=== PATIENT | female | born 1935 | race Caucasian/White ===

== ENCOUNTER 2018-04-10 15:18 | Inpatient (IN) ==
[2018-04-10] MEDS ORDERED: Sennosides 8.6 MG TABLET PO PRN (16:12)
[2018-04-10] MEDS ORDERED: Temazepam 15 MG CAPSULE PO PRN (16:12)
[2018-04-10] MEDS ORDERED: Naloxone 0.4 MG/ML INJ IVP PRN (16:12)
[2018-04-10] MEDS ORDERED: Ondansetron 4 MG/2 ML VIAL IVP PRN (16:12)
[2018-04-10] MEDS ORDERED: MOM Conc 10 ML UD.LIQ PO PRN (16:12)
[2018-04-10] MEDS ORDERED: Acetaminophen 325 MG TABLET PO PRN (16:12)
[2018-04-10] MEDS ORDERED: Ringers Solution, Lactated 1,000 ML IVC SCH (16:15)
[2018-04-10] MEDS ORDERED: *HR* OxyCODONE/APAP 5/325 TABLET PO PRN (16:29)
--- NOTE | 2018-04-10 16:47 | Orthopedic History & Physical ---
Date of Encounter: 04/10/18 Time of Encounter: 16:40 Assessment and Plan (1) Loosening of knee joint prosthesis Current visit: Yes Status: Acute Patient is POD#9 from Left TKR, after sustaining a tibial plateau fracture. XRAYS were reviewed from office visit, showing further subsision of tibial implant with evidence of tibial implan loosening. Both converative and surgical options were reviewed and discussed with the patient. At this time, to prevent further loosening and instability, decision was made to proceed with Surgical intervention. also spoke and saw the patient. Plan: Left Tibial Revision 04/11/18 with - Consent reviewed and signed. Risks versus benefits were discussed. Patient expressed understanding. NPO After midnight. Up as tolerated. Patient was noted to be hypoxic in office with improvement once 2 L of O2 was initiated. Hospitalist consulted for pre-op workup. Qualifiers: Encounter type: initial encounter Qualified Code(s): T84.038A - Mechanical loosening of other internal prosthetic joint, initial encounter; Z96.659 - Presence of unspecified artificial knee joint (2) Status post total knee replacement, left Current visit: No Status: Acute (3) Tibial plateau fracture, left Current visit: No Status: Acute Qualifiers: Encounter type: initial encounter Fracture type: closed Qualified Code(s) : S82.142A - Displaced bicondylar fracture of left tibia, initial encounter for closed fracture (4) COPD (chronic obstructive pulmonary disease) Current visit: No Status: Chronic Qualifiers: COPD type: unspecified COPD Qualified Code(s): J44.9 - Chronic obstructive pulmonary disease, unspecified (5) Chronic kidney disease Current visit: No Status: Chronic Qualifiers: Chronic kidney disease stage: stage 3 (moderate) Qualified Code(s): N18.3 - Chronic kidney disease, stage 3 (moderate) (6) Hypertension Current visit: No Status: Chronic Qualifiers: Hypertension type: essential hypertension Qualified Code(s): I10 - Essential (primary) hypertension (7) Hypothyroidism Current visit: No Status: Chronic Qualifiers: Hypothyroidism type: unspecified Qualified Code(s): E03.9 - Hypothyroidism , unspecified History of Present Illness Chief complaint: Left Knee - Loosening of Tibial Implant HPI: Ms. Calero is a 82 year old female, s/p Left TKR 04/01 due to Tibial Plateau fracture. She was recently Discharged from the hospital to [facility] last week. Patient was seen in the office today for follow up. She denies any falls or trauma. She admits to continued pain to left knee. Ambulating with significant difficulty with walker at facility - [facility]. Incision was clean, intact and healing appropriately. Incision cleansed. Wound - paul in place, No drainage or dehiscence noted. Moderate swelling noted. +CALF tenderness. Mild irritation along medial aspect of incision. Zipline dressing intact and New opsite applied. Remove dressing in 5-7 days I reviewed the XRAYS with the patient - hardware intact and comparison views reviewed with patient and . Tibial component shows evidence of shifting with subsision anteriorly. Post-operative restrictions and operative report were outlined. Continue to ICE and elevate daily ROM limited. WBAT. Gentle knee ROM only Past Med Surg Social Fam HX - Past Medical History Medical history: arthritis, COPD, GERD, hyperlipidemia, hypertension, TIA Additional medical history: colon CA, neuropathy, Psychiatric history: anxiety, depression, panic disorder - Past Surgical History Surgical History: appendectomy, , cancer surgery, cholecystectomy, colectomy, hysterectomy, other Additional surgical history: port placement- removed. - Social History Smoking Status: Never smoker Smokeless Tobacco Status: No Alcohol use: none Drug use: none - Family History Mother Adopted: No Living Status: Hx Family Cancer: Yes (breast cancer) Medications and Allergies Clopidogrel [Plavix] 75 mg PO DAILY 09/08/15 [History] Colesevelam HCl [Welchol] 1,875 mg PO BID 09/08/15 [History] Duloxetine HCl [Cymbalta] 60 mg PO DAILY 09/08/15 [History] amLODIPine [Norvasc] 5 mg PO DAILY 09/08/15 [History] Docusate [Colace] 100 mg PO BID #60 capsule 09/10/15 [Rx] Fenofibrate Nanocrystallized [Tricor] 48 mg PO DAILY 08/26/16 [History] Ergocalciferol (VITAMIN D2) [Vitamin D2 (50,000 UNIT)] 50,000 unit PO WE [History] Lansoprazole [Prevacid] 30 mg PO DAILY 03/01/17 [History] Albuterol Sulfate [Ventolin Hfa] 2 puff IH Q4-6H PRN #1 hfa.aer.ad 08/06/17 [Rx] Amitriptyline [Elavil] 50 mg PO HS 03/29/18 [History] Fluticasone/Salmeterol [Advair 250-50 Diskus] 1 puff IH BID 03/29/18 [History] Levothyroxine [Synthroid] 100 mcg PO DAILY 03/29/18 [History] Pantoprazole Sodium [Protonix] 40 mg PO DAILY 03/29/18 [History] Aspirin Enteric Coated [Aspirin EC] 325 mg PO BID 10 Days tablet. 04/05/18 [ Rx] OxyCODONE/APAP 5/325 [Percocet 5/325 MG] 1 each PO Q8H PRN 3 Days #5 tablet [Rx] Pregabalin [Lyrica] 200 mg PO BID 3 Days #10 capsule 04/05/18 [Rx] 3 Allergy/AdvReac Type Severity Reaction Status Date / Time Diclofenac [From Arthrotec] Allergy See Verified 03/29/18 13:59 Comments misoprostol [From Arthrotec] Allergy See Verified 03/29/18 13:59 Comments Dlxfapg-Fmi-Unr Reductase Allergy See Verified 03/29/18 13:59 Inhibitor Comments morphine AdvReac Agitated Verified 03/29/18 13:59 All Systems Reviewed: The remainder of the systems were reviewed and are negative - Constitutional Constitutional: as per HPI, no weakness - Cardiovascular Cardiovascular: as per HPI, no chest pain, no dyspnea on exertion, no syncope - Respiratory Respiratory: no dyspnea, no dyspnea on exertion - Musculoskeletal Musculoskeletal: abnormal gait, back pain, joint swelling, limited range of motion, muscle weakness, stiffness, no numbness, no radiating pain into limb Physical Exam - Constitutional Vitals: Temp Pulse Resp BP Pulse Ox 97.6 F 84 16 133/74 95 04/10/18 15:43 04/10/18 15:43 04/10/18 15:43 04/10/18 15:43 04/10/18 15:43 - Knee left Appearance: effusion Tenderness with palpation knee: anterior, medial Pain: with flexion, throughout ROM Gait: uses walker Results - Labs Labs: All other labs normal. - Diagnostic results Knee x-ray: report reviewed, image reviewed
[2018-04-10 17:20] LABS: Basophils # 0.1 K/mcL (0.0-0.2); Basophils % 0.7 %; Eosinophils # 0.3 K/mcL (0.0-0.6); Hematocrit 29.5 % (35.3-44.9); Hemoglobin 9.1 g/dL (11.5-15.4); Immature Granulocytes % 0.7 % (0-4); Lymphocytes # 1.2 K/mcL (0.6-4.6); Mean Corpuscular HGB Conc 30.8 g/dL (31.6-35.5); Mean Corpuscular Hemoglobin 28.6 pg (28.0-33.3); Mean Corpuscular Volume 92.8 fL (83.0-100.0); Mean Platelet Volume 9.8 fL (9.4-12.4); Monocytes # 0.6 K/mcL (0.0-1.3); Neutrophils # 5.1 K/mcL (1.6-8.9); Platelet Count 386 K/mcL (140-400); Red Blood Count 3.18 M/mcL (3.82-4.97); Red Cell Distribution Width 15.5 % (11.5-14.5); Segmented Neutrophils % 70.6 %
[2018-04-10 17:34] LABS: INR 1.1; Prothrombin Time 12.8 Seconds (9.4-12.1)
[2018-04-10 17:36] LABS: Activated Partial Thrombo Time 34.8 Seconds (26.0-36.0)
[2018-04-10 17:42] LABS: Calcium 8.8 mg/dL (8.6-10.3); Potassium 4.5 mEq/L (3.5-5.1)
--- NOTE | 2018-04-10 19:25 | Anesthesia Evaluation PreOp ---
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: TIA, Other (Anxiety depression RLS) Other Medical History: Thyroid, GERD Anesthesia History: No Prior Anesthetic Complications, Past Anesthesia (TKA under GA and Nerve Block) Alcohol Use: none Drug use: none Medications and Allergies Clopidogrel [Plavix] 75 mg PO DAILY 09/08/15 [History] Colesevelam HCl [Welchol] 1,875 mg PO BID 09/08/15 [History] Duloxetine HCl [Cymbalta] 60 mg PO DAILY 09/08/15 [History] amLODIPine [Norvasc] 5 mg PO DAILY 09/08/15 [History] Docusate [Colace] 100 mg PO BID #60 capsule 09/10/15 [Rx] Fenofibrate Nanocrystallized [Tricor] 48 mg PO DAILY 08/26/16 [History] Ergocalciferol (VITAMIN D2) [Vitamin D2 (50,000 UNIT)] 50,000 unit PO WE [History] Lansoprazole [Prevacid] 30 mg PO DAILY 03/01/17 [History] Albuterol Sulfate [Ventolin Hfa] 2 puff IH Q4-6H PRN #1 hfa.aer.ad 08/06/17 [Rx] Amitriptyline [Elavil] 50 mg PO HS 03/29/18 [History] Fluticasone/Salmeterol [Advair 250-50 Diskus] 1 puff IH BID 03/29/18 [History] Levothyroxine [Synthroid] 100 mcg PO DAILY 03/29/18 [History] Pantoprazole Sodium [Protonix] 40 mg PO DAILY 03/29/18 [History] Aspirin Enteric Coated [Aspirin EC] 325 mg PO BID 10 Days tablet. 04/05/18 [ Rx] OxyCODONE/APAP 5/325 [Percocet 5/325 MG] 1 each PO Q8H PRN 3 Days #5 tablet [Rx] Pregabalin [Lyrica] 200 mg PO BID 3 Days #10 capsule 04/05/18 [Rx] 3 Allergy/AdvReac Type Severity Reaction Status Date / Time Diclofenac [From Arthrotec] Allergy See Verified 03/29/18 13:59 Comments misoprostol [From Arthrotec] Allergy See Verified 03/29/18 13:59 Comments Rjxnvsj-Dwm-Zex Reductase Allergy See Verified 03/29/18 13:59 Inhibitor Comments morphine AdvReac Agitated Verified 03/29/18 13:59 - Meds/Allergy Pre-op Review Medications Reviewed: Yes Allergies Reviewed: Yes Beta Blockers on Current Med List: No Anesthesia Results - Labs 04/10/18 17:06 04/10/18 17:06 Laboratory Tests 04/10/18 04/10/18 04/10/18 17:06 17:06 17:06 Hgb 9.1 L Hct 29.5 L Plt Count 386 PT 12.8 H INR 1.1 APTT 34.8 Sodium 140 Potassium 4.5 BUN 39 H Creatinine 1.42 H - Imaging EKG: pending Anesthesia Exam O2 Sat Height 1.6 m Weight 101.151 kg O2 Sat by Pulse Oximetry 95 O2 Sat by Pulse Oximetry 95 Vital Signs Temp Pulse Resp BP Pulse Ox 97.6 F 84 16 133/74 95 04/10/18 15:43 04/10/18 15:43 04/10/18 15:43 04/10/18 15:43 04/10/18 15:43 Height: 5'3 Weight: 223 lbs NPO (# of Hours): MN Pain Scale: 0 - HEENT Pupil (Motor): Pupils equal, EOMI Mallampati: III Teeth: Edentulous Oral Opening: Less than or equal to 3 - OLEOMARGARINE MAKER LOC: Oriented OLEOMARGARINE MAKER Motor: Normal RUE, Normal LUE, Normal RLE, Normal LLE, Normal Face OLEOMARGARINE MAKER Sensory: Normal: RUE, LUE, RLE, LLE, Face - Cardiac Rhythm: Regular Murmur: None JVD: No Carotid Bruit: No - Pulmonary Breath Sounds: bilateral Clear Respiratory Effort: Symmetrical Anesthesia Assess/Plan ASA Score: 3 (HTN TIA GERD COPD) Modified Donaldo Scale for Level of Consciousness: Cooperative, oriented, and tranquil Anesthetic Plan: General, Regional Monitoring Plan: Standard Monitors Recovery Plan: PACU (Discussed GA and Adductor/IPACK Block, agrees to proceed)
--- NOTE | 2018-04-10 20:57 | Internal Medicine Consult Note ---
Date of Encounter: 04/11/18 Time of Encounter: 20:50 - Assessment and plan (1) COPD exacerbation Current Visit: Yes Status: Acute Assessment and plan: pt has SOB, wheezing and cough productive of phlegm. She was saturating 92% on room air and 95% on 2L. Will start on round the clock nebs, steroids and antibiotics. This is the likely etiology for her mild hypoxia. Follow up chest xray to r/o pneumonia in light of recent hospital stay. (2) Preoperative clearance Current Visit: Yes Status: Acute Assessment and plan: Pt has good functional status at baseline and is able to do activities such as walking around the house and cooking with a METS score of approximately 4. Patient may proceed for orthopedic surgery at low risk. No further cardiac testing indicated (3) Loosening of knee joint prosthesis Current Visit: Yes Status: Acute Assessment and plan: Follow up ortho recs for planned revision in am Qualifiers: Encounter type: initial encounter Qualified Code(s): T84.038A - Mechanical loosening of other internal prosthetic joint, initial encounter; Z96.659 - Presence of unspecified artificial knee joint (4) Hypoxia Current Visit: Yes Status: Acute Assessment and plan: Likely 2/2 to COPD exacerbation vs query other etiology such as fluid overload. CXR shows possible interstitial edema. Hold IV fluids, follow up BNP levels - Time Spent With Patient Total time spent is greater than 50% in coordination of care (as documented) at patient's floor/unit and/or counseling patient: Internal Medicine - CN: HPI - Data of Consult Requesting Physician: Roman Raymond MD - Consult Narrative Reason for consult: Hypoxia, preop clearance History of present illness: Ms. Calero is a 82 year old female with pmh of COPD, hypertension, hypothyroidism, s/p left total knee replacement 9 days ago due to tibial plateau fracture presenting with complaint of left knee pain at the ortho outpatient office. She was admitted to the hospital for a scheduled left tibial revision on 04/11/18 after xrays showed evidence of shifting with subsission anteriorly. She was also noted to be hypoxic at 92 % on room air and hospitalist service was consulted for preop clearance. She complains of shortness of breath for about days, coughing productive of phlegm and wheezing. She uses inhalers at home. She also complains of continued left knee pain Past Med Surg Social Fam HX - Past Medical History Medical history: arthritis, COPD, GERD, hyperlipidemia, hypertension, TIA Additional medical history: colon CA, neuropathy, Psychiatric history: anxiety, depression, panic disorder - Past Surgical History Surgical History: appendectomy, , cancer surgery, cholecystectomy, colectomy, hysterectomy, other Additional surgical history: port placement- removed. - Social History Smoking Status: Never smoker Smokeless Tobacco Status: No Alcohol use: none Drug use: none - Family History Mother Adopted: No Living Status: Age at : 48 Hx Family Cancer: Yes (breast cancer) - Constitutional Constitutional: as per HPI - Cardiovascular Cardiovascular ROS IM: dyspnea - Respiratory Respiratory: wheezing - Gastrointestinal Gastrointestinal: as per HPI - Musculoskeletal Musculoskeletal ROS IM: as per HPI Additional comments: knee pain - Neurological Neurological ROS: as per HPI Internal Medicine - CN: Meds Clopidogrel [Plavix] 75 mg PO DAILY 09/08/15 [History] Colesevelam HCl [Welchol] 1,875 mg PO BID 09/08/15 [History] Duloxetine HCl [Cymbalta] 60 mg PO DAILY 09/08/15 [History] amLODIPine [Norvasc] 5 mg PO DAILY 09/08/15 [History] Docusate [Colace] 100 mg PO BID #60 capsule 09/10/15 [Rx] Fenofibrate Nanocrystallized [Tricor] 48 mg PO DAILY 08/26/16 [History] Ergocalciferol (VITAMIN D2) [Vitamin D2 (50,000 UNIT)] 50,000 unit PO WE [History] Lansoprazole [Prevacid] 30 mg PO DAILY 03/01/17 [History] Albuterol Sulfate [Ventolin Hfa] 2 puff IH Q4-6H PRN #1 hfa.aer.ad 08/06/17 [Rx] Amitriptyline [Elavil] 50 mg PO HS 03/29/18 [History] Fluticasone/Salmeterol [Advair 250-50 Diskus] 1 puff IH BID 03/29/18 [History] Levothyroxine [Synthroid] 100 mcg PO DAILY 03/29/18 [History] Pantoprazole Sodium [Protonix] 40 mg PO DAILY 03/29/18 [History] Aspirin Enteric Coated [Aspirin EC] 325 mg PO BID 10 Days tablet. 04/05/18 [ Rx] OxyCODONE/APAP 5/325 [Percocet 5/325 MG] 1 each PO Q8H PRN 3 Days #5 tablet [Rx] Pregabalin [Lyrica] 200 mg PO BID 3 Days #10 capsule 04/05/18 [Rx] 3 Allergy/AdvReac Type Severity Reaction Status Date / Time Diclofenac [From Arthrotec] Allergy See Verified 03/29/18 13:59 Comments misoprostol [From Arthrotec] Allergy See Verified 03/29/18 13:59 Comments Dykshkw-Uyr-Cnk Reductase Allergy See Verified 03/29/18 13:59 Inhibitor Comments morphine AdvReac Agitated Verified 03/29/18 13:59 Internal Medicine - CN: Exam - Constitutional Vitals: Temp Pulse Resp BP Pulse Ox 98.0 F 81 17 136/74 92 04/10/18 19:40 04/10/18 19:40 04/10/18 19:40 04/10/18 19:40 04/10/18 19:40 General appearance IM: Present: A&O X 3 - Head Head exam: Present: atraumatic - Respiratory Respiratory exam: Present: wheezes - Cardiovascular Cardiovascular exam IM: Present: +S1, +S2 - GI/Abdominal GI/Abdominal exam IM: Present: soft - Extremities Exam Extremities exam IM: Present: tenderness - Neurological Exam Neurological exam: Present: alert, CN II-XII intact Internal Medicine - CN: Reslt - Labs CBC & Chem 7: 04/10/18 17:06 04/10/18 17:06 Labs: Short CBC 04/10/18 Range/Units 17:06 WBC 7.3 (4.3-11.1) K/mcL Hgb 9.1 L (11.5-15.4) g/dL Hct 29.5 L (35.3-44.9) % Plt Count 386 (140-400) K/mcL Neutrophils # 5.1 (1.6-8.9) K/mcL BMP 04/10/18 17:06 Sodium 140 Potassium 4.5 Chloride 110 H Carbon Dioxide 24 BUN 39 H Creatinine 1.42 H Glucose 106 H Calcium 8.8 - ABG Interpretation ABG results: PT/INR, D-dimer PT 12.8 Seconds (9.4-12.1) H 04/10/18 17:06 Consult Discharge Plan - Plan Referrals: Stiltner,Arpan D, [Primary Care Provider] -
[2018-04-10] MEDS ORDERED: Levofloxacin 750 MG/150 ML 750 MG/150 ML BAG IVPB SCH (22:00)
[2018-04-10] MEDS: Ipratropium/Albuterol Neb 3 ML IH SCH ×2 (22:36→22:49)
[2018-04-10] MEDS: Budesonide/Formoterol 160/4.5 MDI IH SCH (22:48)
[2018-04-11] MEDS: methylPREDNISolone 125 MG/2 ML VIAL IVP SCH ×3 (00:25→08:14)
[2018-04-11 01:16] LABS: Hematocrit 28.6 % (35.3-44.9)
[2018-04-11 01:35] LABS: Calcium 8.6 mg/dL (8.6-10.3); Potassium 3.8 mEq/L (3.5-5.1)
[2018-04-11] MEDS: Ipratropium/Albuterol Neb 3 ML IH SCH ×5 (03:52→19:41)
--- NOTE | 2018-04-11 06:44 | Orthopedics Progress Note ---
Date of Encounter: 04/11/18 Time of Encounter: 06:42 Subjective Interval history: Patient here following left total knee replacement. Patient presented in the office with subsidence of the tibial component. Patient is also experiencing some hypoxemia patient was referred for admission for medical evaluation and surgical revision. We reviewed the surgical plan revision tibial component. We reviewed the risks and benefits as well as recovery. All questions were answered. The patient agreed to this treatment plan and appeared to understand the plan is reviewed. Objective Vital signs: Vital Signs Temp Pulse Resp BP Pulse Ox 04/11/18 04:29 98.3 F 81 16 159/74 92 04/11/18 03:52 16 93 04/10/18 23:29 98.1 F 81 17 146/60 93 04/10/18 22:48 16 93 04/10/18 19:40 98.0 F 81 17 136/74 92 04/10/18 15:45 95 04/10/18 15:43 97.6 F 84 16 133/74 95 Intake and Output 04/10/18 04/10/18 04/11/18 15:59 23:59 07:59 Output Total 250 / 250 Balance -250 / -250 Output: Urine 250 / 250 Other: # Voids 1 1 Weight 101.151 kg 102.3 kg Patient Weight 04/11/18 23:59 Weight 102.3 kg - Labs CBC & BMP: 04/11/18 00:49 04/11/18 00:49 Labs: Abnormal lab results RBC 3.18 M/mcL (3.82-4.97) L 04/10/18 17:06 Hgb 9.0 g/dL (11.5-15.4) L 04/11/18 00:49 Hct 28.6 % (35.3-44.9) L 04/11/18 00:49 MCHC 30.8 g/dL (31.6-35.5) L 04/10/18 17:06 RDW 15.5 % (11.5-14.5) H 04/10/18 17:06 PT 12.8 Seconds (9.4-12.1) H 04/10/18 17:06 Chloride 109 mEq/L (98-107) H 04/11/18 00:49 BUN 35 mg/dL (8-23) H 04/11/18 00:49 Est GFR ( Amer) 57 (> 60) L 04/11/18 00:49 Est GFR (Non-Af Amer) 47 (> 60) L 04/11/18 00:49 BUN/Creatinine Ratio 31 (6-26) H 04/11/18 00:49 Glucose 186 mg/dL (70-105) H 04/11/18 00:49 Calculated Osmolality 301 (280-300) H 04/11/18 00:49 B-Natriuretic Peptide 191 pg/mL (Less than 100) H 04/11/18 00:49 - VTE Documentation of Mechanical Device: Intermittent pneumatic compression device Consult Discharge Plan - Plan Referrals: Arpan Larkin DO [Primary Care Provider] -
[2018-04-11] MEDS ORDERED: Furosemide 20 MG/2 ML VIAL IVP ONE (09:02)
[2018-04-11] MEDS ORDERED: Bupivacaine/Clonidine Syringe 1 EACH SYRINGE ONE (10:00)
[2018-04-11] MEDS ORDERED: ROPIVACAINE HCL/PF 0.5% 30 ML VIAL ONE (10:00)
[2018-04-11] MEDS ORDERED: Lidocaine -MPF 2% 2 ML VIAL ONE (10:06)
[2018-04-11] MEDS ORDERED: *HR* Propofol 200 MG/20 ML VIAL IVP ONE (10:06)
[2018-04-11] MEDS ORDERED: *HR* Midazolam HCl 2 MG/2 ML VIAL ONE (10:06)
[2018-04-11] MEDS ORDERED: Dexamethasone 4 MG/ML VIAL ONE (10:06)
[2018-04-11] MEDS ORDERED: Ondansetron 4 MG/2 ML VIAL ONE (10:06)
[2018-04-11] MEDS ORDERED: *HR* FentaNYL (PF) 100 MCG/2 ML VIAL ONE (10:07)
[2018-04-11] MEDS ORDERED: Ethanol\\Acetic Acid\\Na Ace\\Ben 1,000 ML IRRIG.SOLN IR ONE (10:09)
--- NOTE | 2018-04-11 10:46 | Internal Med Progress Note ---
Hospitalist Progress Note - Encounter Date of Encounter: 04/11/18 Time of Encounter: 10:43 - Subjective Interval History: Patient denies shortness of breath chest pain headache dizziness cough abdominal pain urinary bowel complaint. She is on 2 L oxygen that she was taking at home as well. Reviewed the lab with normal creatinine level, stable hemoglobin, BNP 191. - Exam Vitals: Temp Pulse Resp BP Pulse Ox 98.2 F 92 18 161/79 96 04/11/18 07:52 04/11/18 07:52 04/11/18 07:52 04/11/18 07:52 04/11/18 07:52 Exam: General appearance: No acute distress, A&O X 3 Head exam: Atraumatic Eye exam: EOMI, PERRLA ENT exam: Moist oral mucosa Neck nontender, supple Respiratory exam: Clear to auscultation bilaterally Cardiovascular exam: Regular rate and rhythm, no systolic murmur Abdominal exam: Soft, nontender, nondistended, positive bowel sounds Extremities exam: No calf tenderness, no pedal edema Present: Left knee tenderness present Neurological exam: Grossly CN II-XII intact, no focal deficits. No facial droop. Normal speech. - Assessment and Plan (1) Loosening of knee joint prosthesis Current Visit: Yes Status: Acute Assessment and Plan: Plan revision today known. Primary team ortho physician is managing. Patient is nothing by mouth. (2) COPD exacerbation Current Visit: Yes Status: Acute Assessment and Plan: improving.will taper down a steroid based on further assessment. Continue current treatment, oxygen supplementation. (3) Preoperative clearance Current Visit: Yes Status: Acute Assessment and Plan: Pt has good functional status at baseline and is able to do activities such as walking around the house and cooking with a METS score of approximately 4. Chest x-ray with interstitial edema therefore use IV fluid wisely, strict I&O' s. May consider Lasix when necessary. (4) Hypoxia Current Visit: Yes Status: Acute Assessment and Plan: Improving. Likely 2/2 to COPD exacerbation vs possible fluid overload. CXR shows possible interstitial edema with minimal raised BNP. Hold IV fluids, Lasix when necessary (5) DVT prophylaxis Current Visit: Yes Status: Acute Assessment and Plan: SCDs for now. Will consider heparin subcutaneous postoperatively - Time Spent with Patient Total time spent is greater than 50% in coordination of care (as documented) at patient's floor/unit and/or counseling patient: 25 - 35 minutes Internal Medicine: Result - Labs CBC & Chem 7: 04/11/18 00:49 04/11/18 00:49 Labs: Short CBC 04/10/18 04/11/18 Range/Units 17:06 00:49 WBC 7.3 (4.3-11.1) K/mcL Hgb 9.1 L 9.0 L (11.5-15.4) g/dL Hct 29.5 L 28.6 L (35.3-44.9) % Plt Count 386 (140-400) K/mcL Neutrophils # 5.1 (1.6-8.9) K/mcL BMP 04/10/18 04/11/18 17:06 00:49 Sodium 140 139 Potassium 4.5 3.8 Chloride 110 H 109 H Carbon Dioxide 24 23 BUN 39 H 35 H Creatinine 1.42 H 1.12 Glucose 106 H 186 H Calcium 8.8 8.6 - ABG Interpretation ABG results: PT/INR, D-dimer PT 12.8 Seconds (9.4-12.1) H 04/10/18 17:06 - Impressions Impressions Chest X-Ray 04/10/18 16:10 IMPRESSION: Prominence of the interstitial markings. Correlation for interstitial edema is recommended. D/ / Leslie Heredia Cha, MD / Leslie Heredia Cha, MD Interpreting Provider: Leslie Heredia Cha, MD - VTE Documentation of Mechanical Device: Intermittent pneumatic compression device Consult Discharge Plan - Plan Referrals: Arpan Larkin, DO [Primary Care Provider] - (1) Loosening of knee joint prosthesis Qualifiers: Encounter type: initial encounter Qualified Code(s): T84.038A - Mechanical loosening of other internal prosthetic joint, initial encounter; Z96.659 - Presence of unspecified artificial knee joint
[2018-04-11] MEDS ORDERED: Isovue-370 500 ML INFUS..BTL IV ONE (10:55)
[2018-04-11] MEDS: Budesonide/Formoterol 160/4.5 MDI IH SCH ×2 (11:17→19:41)
--- NOTE | 2018-04-11 11:55 | Orthopedics Progress Note ---
Date of Encounter: 04/11/18 Time of Encounter: 11:53 Subjective Interval history: Patient with new baseline hypoxemia. Concern for PE, stat CT angiogram showed no evidence of PE. Patient with an acute change in implant position concern for further worsening of extremity with inability to bear weight and mobilized putting her at increased risk for pulmonary issues. Surgical intervention is urgent to rectify this problem mobilize patient and hopefully correct pulmonary issues. Objective Vital signs: Vital Signs Temp Pulse Resp BP Pulse Ox 04/11/18 07:52 98.2 F 92 18 161/79 96 04/11/18 04:29 98.3 F 81 16 159/74 92 04/11/18 03:52 16 93 04/10/18 23:29 98.1 F 81 17 146/60 93 04/10/18 22:48 16 93 04/10/18 19:40 98.0 F 81 17 136/74 92 04/10/18 15:45 95 04/10/18 15:43 97.6 F 84 16 133/74 95 Intake and Output 04/10/18 04/11/18 04/11/18 23:59 07:59 15:59 Output Total 250 / 250 600 / 600 Balance -250 / -250 -600 / -600 Output: Urine 250 / 250 600 / 600 Other: Meal Breakfast Percent of Meal Consumed 0% # Voids 1 1 Weight 101.151 kg 102.3 kg Patient Weight 04/11/18 23:59 Weight 102.3 kg - Labs CBC & BMP: 04/11/18 00:49 04/11/18 00:49 Labs: Abnormal lab results RBC 3.18 M/mcL (3.82-4.97) L 04/10/18 17:06 Hgb 9.0 g/dL (11.5-15.4) L 04/11/18 00:49 Hct 28.6 % (35.3-44.9) L 04/11/18 00:49 MCHC 30.8 g/dL (31.6-35.5) L 04/10/18 17:06 RDW 15.5 % (11.5-14.5) H 04/10/18 17:06 PT 12.8 Seconds (9.4-12.1) H 04/10/18 17:06 Chloride 109 mEq/L (98-107) H 04/11/18 00:49 BUN 35 mg/dL (8-23) H 04/11/18 00:49 Est GFR ( Amer) 57 (> 60) L 04/11/18 00:49 Est GFR (Non-Af Amer) 47 (> 60) L 04/11/18 00:49 BUN/Creatinine Ratio 31 (6-26) H 04/11/18 00:49 Glucose 186 mg/dL (70-105) H 04/11/18 00:49 Calculated Osmolality 301 (280-300) H 04/11/18 00:49 B-Natriuretic Peptide 191 pg/mL (Less than 100) H 04/11/18 00:49 - VTE Documentation of Mechanical Device: Intermittent pneumatic compression device Consult Discharge Plan - Plan Referrals: Arpan Larkin DO [Primary Care Provider] -
--- NOTE | 2018-04-11 11:59 | Discharge Summary ---
<Roman Raymond - Last Filed: 04/11/18 11:55> Orders not resulted at time of discharge: Pending orders 04/10/18 16:10 ECG 12 lead ECG [ECG] Routine 04/11/18 06:00 ECG 12 lead ECG [ECG] AM 0600 04/11/18 09:15 Venous Doppler [EV venous imaging LE BI] Stat 04/11/18 10:56 XR knee LT limited 1-2V [XR] Routine 04/11/18 11:07 ABG [Arterial Blood Gas] Stat 04/11/18 13:30 Hemoglobin and Hematocrit [HEME] Routine 04/12/18 04:00 Basic Metabolic Panel AM 0400 Hemoglobin and Hematocrit [HEME] AM 0400 Date of Encounter: 04/11/18 - Discharge Diagnosis (1) Status post revision of total replacement of left knee Priority: Primary Status: Acute (2) Morbid obesity with BMI of 40.0-44.9, adult Priority: Secondary Status: Chronic (3) Colonic cancer Priority: Secondary Status: Chronic Qualifiers: Colon location: transverse Qualified Code(s): C18.4 - Malignant neoplasm of transverse colon (4) Tibial plateau fracture, left Priority: Primary Status: Acute Qualifiers: Encounter type: subsequent encounter Fracture type: closed Fracture healing: with routine healing Qualified Code(s): S82.142D - Displaced bicondylar fracture of left tibia, subsequent encounter for closed fracture with routine healing (5) Decreased ambulation status Priority: Primary Status: Acute (6) Hypertension Priority: Secondary Status: Chronic Qualifiers: Hypertension type: essential hypertension Qualified Code(s): I10 - Essential (primary) hypertension (7) Hypothyroidism Priority: Secondary Status: Chronic Qualifiers: Hypothyroidism type: unspecified Qualified Code(s): E03.9 - Hypothyroidism , unspecified (8) TIA (transient ischemic attack) Priority: Secondary Status: Chronic (9) Status post total knee replacement, left Priority: Primary Status: Acute (10) COPD (chronic obstructive pulmonary disease) Priority: Secondary Status: Chronic Qualifiers: COPD type: unspecified COPD Qualified Code(s): J44.9 - Chronic obstructive pulmonary disease, unspecified (11) Loosening of knee joint prosthesis Status: Acute Qualifiers: Encounter type: subsequent encounter Qualified Code(s): T84.038D - Mechanical loosening of other internal prosthetic joint, subsequent encounter; Z96.659 - Presence of unspecified artificial knee joint (12) Hypoxia Priority: Primary Status: Acute (13) Chronic pain Priority: Secondary Status: Chronic Qualifiers: Chronic pain type: other chronic pain Qualified Code(s): G89.29 - Other chronic pain - Hospital Course Hospital course: Ms. Calero is a 82 year old female - Time Spent with Patient Total time spent providing and/or coordinating discharge services: - Discharge Medications Prescriptions: levoFLOXacin [Levofloxacin] 750 mg PO Q24H #10 tablet Home Medications: Clopidogrel [Plavix] 75 mg PO DAILY 09/08/15 [History] Colesevelam HCl [Welchol] 1,875 mg PO BID 09/08/15 [History] Duloxetine HCl [Cymbalta] 60 mg PO DAILY 09/08/15 [History] Docusate [Colace] 100 mg PO BID #60 capsule 09/10/15 [Rx] Fenofibrate Nanocrystallized [Tricor] 48 mg PO DAILY 08/26/16 [History] Amitriptyline [Elavil] 50 mg PO HS 03/29/18 [History] Fluticasone/Salmeterol [Advair 250-50 Diskus] 1 puff IH BID 03/29/18 [History] Levothyroxine [Synthroid] 100 mcg PO DAILY 03/29/18 [History] Aspirin Enteric Coated [Aspirin EC] 325 mg PO BID 10 Days tablet. 04/05/18 [ Rx] Celecoxib [Celebrex] 200 mg PO DAILY 04/11/18 [History] Meloxicam [Mobic] 15 mg PO DAILY 04/11/18 [History] levoFLOXacin [Levofloxacin] 750 mg PO Q24H #10 tablet 04/11/18 [Rx] Ergocalciferol (VITAMIN D2) [Vitamin D2] 50,000 unit PO WE 04/12/18 [History] Pantoprazole Sodium [Pantoprazole Sodium] 40 mg PO DAILY 04/12/18 [History] Pregabalin [Lyrica] 200 mg PO BID 04/12/18 [History] Allergies/Adverse Reactions: 3 Allergy/AdvReac Type Severity Reaction Status Date / Time Diclofenac [From Arthrotec] Allergy See Verified 03/29/18 13:59 Comments misoprostol [From Arthrotec] Allergy See Verified 03/29/18 13:59 Comments Wdvxabw-Bgo-Kwh Reductase Allergy See Verified 03/29/18 13:59 Inhibitor Comments morphine AdvReac Agitated Verified 03/29/18 13:59 Date of admission: 04/10/18 16:07 Primary care physician: Arpan Larkin DO Consults: 04/10/18 16:12 Consult to Orthopedic Navigator [CONS] [CONS] Routine Consult to Inspector Dials [CONS] Routine Reason for SW Consult: post op joint replacement 04/10/18 16:36 Consult to Hospitalist [CONS] Routine Consulting Provider: Hospitalist Enegeericka Reason for Consult: Pre-operative clearance, O2 dependency Time Notified: 16:37 Call Completed: Yes - VTE Documentation of Mechanical Device: Intermittent pneumatic compression device Labs on day of discharge: Labs from last 24 hours 04/11/18 04/11/18 04/11/18 00:49 00:49 00:49 WBC RBC Hgb Hct MCV MCH MCHC RDW Plt Count MPV Immature Gran % Seg Neutrophils % Lymphocytes % Monocytes % Eosinophils % Basophils % Neutrophils # Lymphocytes # Monocytes # Eosinophils # Basophils # PT INR APTT Sodium 139 Potassium 3.8 Chloride 109 H Carbon Dioxide 23 BUN 35 H Creatinine 1.12 Est GFR ( Amer) 57 L Est GFR (Non-Af Amer) 47 L BUN/Creatinine Ratio 31 H Glucose 186 H Calculated Osmolality 301 H Calcium 8.6 B-Natriuretic Peptide 191 H Blood Type AB POSITIVE Antibody Screen NEGATIVE 04/11/18 04/10/18 04/10/18 00:49 17:06 17:06 WBC RBC Hgb 9.0 L Hct 28.6 L MCV MCH MCHC RDW Plt Count MPV Immature Gran % Seg Neutrophils % Lymphocytes % Monocytes % Eosinophils % Basophils % Neutrophils # Lymphocytes # Monocytes # Eosinophils # Basophils # PT 12.8 H INR 1.1 APTT 34.8 Sodium 140 Potassium 4.5 Chloride 110 H Carbon Dioxide 24 BUN 39 H Creatinine 1.42 H Est GFR ( Amer) 43 L Est GFR (Non-Af Amer) 36 L BUN/Creatinine Ratio 27 H Glucose 106 H Calculated Osmolality 300 Calcium 8.8 B-Natriuretic Peptide Blood Type Antibody Screen 04/10/18 17:06 WBC 7.3 RBC 3.18 L Hgb 9.1 L Hct 29.5 L MCV 92.8 MCH 28.6 MCHC 30.8 L RDW 15.5 H Plt Count 386 MPV 9.8 Immature Gran % 0.7 Seg Neutrophils % 70.6 Lymphocytes % 16.0 Monocytes % 8.0 Eosinophils % 4.0 Basophils % 0.7 Neutrophils # 5.1 Lymphocytes # 1.2 Monocytes # 0.6 Eosinophils # 0.3 Basophils # 0.1 PT INR APTT Sodium Potassium Chloride Carbon Dioxide BUN Creatinine Est GFR ( Amer) Est GFR (Non-Af Amer) BUN/Creatinine Ratio Glucose Calculated Osmolality Calcium B-Natriuretic Peptide Blood Type Antibody Screen - Impressions ITS Impressions Chest X-Ray 04/10/18 16:10 IMPRESSION: Prominence of the interstitial markings. Correlation for interstitial edema is recommended. D/ / Leslie Heredia Cha, MD / Leslie Heredia Cha, MD Interpreting Provider: Leslie Heredia Cha, MD Chest CTA 04/11/18 10:55 IMPRESSION: 1. No pulmonary embolus. 2. No acute cardiopulmonary disease. 3. Intrathoracic stomach. No evidence of obstruction. D/ / Janey Pruitt MD / Janey Pruitt MD Interpreting Provider: Janey Pruitt MD - Patient Status Disposition: Transfer Inpatient Rehab Fac Condition: Good - Discharge Instructions Instructions: Revision Total Joint Arthroplasty (DC) Follow Up With: Arpan Larkin DO [Primary Care Provider] - Additional Instructions: Discharge Instructions: Total Knee Replacement Please call [facility] ([phone]), your Primary Care Physician, or report to the Emergency Room if you have any of the following symptoms: Nausea, vomiting, fever greater that 101.5, swelling, chest pain, shortness of breath, increased pain/redness/drainage/odor for your incision site, numbness/ tingling, or any other concerning symptoms. ACTIVITY: Non weight bearing to LLE. No range of motion to LLE. You may progress off support (crutches or walker) as tolerated. Incentive Spirometer 10 times an hour. MEDICATIONS: Upon discharge resume your home medications. Take all the medications as prescribed. Take a stool softener if taking narcotic pain medications. Stool softeners are only effective if you drink enough fluids. Drink 6-8 glass of water or fluids a day, unless this is not allowed for another health problem. Despite using stool softeners, if you haven't had a bowel movement in 3 days, please switch to a gentle laxative. Gentle laxatives are sold over the counter. You should have a bowel movement within 24 hours, if not call the office. You will be discharged from the hospital with a prescription for pain medication. You are encouraged to decrease the use of narcotic pain medication as tolerated. Should you require a refill, please call the office. [facility] prescribes narcotic pain medication for only 4-6 weeks after surgery. If you require pain medication beyond this time period, you may be referred to your Primary Care Physician or to the Pain Clinic for further evaluation. Plan ahead for refills on pain medication as many narcotics either need to be picked up at the office or mailed. It is best to call 48-72 hours in advance of needing a prescription refill so you don't run out of medication. To help control the post-operative pain, you may take NSAIDs (Aleve,Advil, Motrin, Ibuprofen, Naprosyn) or Tylenol as prescribed on the bottle in addition to the pain medication. ANTICOAGULATION (blood thinners): Continue your Aspirin, Lovenox or Coumadin as prescribed to help prevent a blood clot in the leg or in the lungs. As long as your incision remains dry and you tolerate the NSAIDs (Aleve, Advil, Motrin, ibuprofen, naprosyn), it is OK to use the NSAIDS while you are taking your anticoagulation medication. Should your incision start to drain, stop the NSAID and contact our office. Common symptoms of blood clot in the legs include: localized pain, swelling, calf tenderness, redness or discoloration of the skin. Blood clot in the lung symptoms include: shortness of breath, rapid pulse, sweating, and chest pain that worsens with deep breathing, coughing up blood, lightheadedness, feelings of anxiety. If you experience any of these symptoms notify your physician immediately, go to the emergency room, or if having trouble breathing, call 911. WOUND CARE: Leave the dressing on for 7 to 10days. You may change the dressing if it becomes saturated greater than 50%. Do not get the dressing wet at anytime. Wash your hands with antibacterial soap, rinse and dry prior to any wound care. If you have paul the visiting nurse or rehab facility can remove the stapes 10-14 days after surgery and place steri-strips across the wound. Leave the steri-strips in place until they fall off on their won. You may let water from the shower run on top of the steri-strips. If you do not have a visiting nurse or rehab facility, you will need to return to the office at 10-14 days for the paul to be removed. If you have itching or redness around the dressing call the office. FOLLOW-UP: Please follow up with your surgeon in the orthopedic clinic in 4 weeks from the day of surgery. If you have paul that need to be removed, you will need to come back to the office in 10-14 days from the day of surgery. <Radha Elder E - Last Filed: 04/12/18 21:46> Orders not resulted at time of discharge: Pending orders 04/11/18 00:49 Type and Screen [BBK] AM 0400 04/11/18 06:00 ECG 12 lead ECG [ECG] AM 0600 04/11/18 11:58 US anesthesia pain block [US] Stat 04/11/18 13:22 Surgical Pathology [PTH] Routine 04/11/18 14:31 Culture,Anaerobic [RM] Routine Culture,Wound [RM] Routine 04/12/18 06:32 Red Blood Cells [BBK] Stat 04/13/18 04:00 Hemoglobin and Hematocrit [HEME] AM 0400 Date of Encounter: 04/12/18 Time of Encounter: 12:41 - Discharge Diagnosis (1) Decreased ambulation status Priority: Primary Status: Acute (2) Loosening of knee joint prosthesis Priority: Primary Status: Acute Qualifiers: Encounter type: subsequent encounter Qualified Code(s): T84.038D - Mechanical loosening of other internal prosthetic joint, subsequent encounter; Z96.659 - Presence of unspecified artificial knee joint (3) Status post revision of total replacement of left knee Priority: Primary Status: Acute (4) COPD (chronic obstructive pulmonary disease) Priority: Secondary Status: Chronic Qualifiers: COPD type: unspecified COPD Qualified Code(s): J44.9 - Chronic obstructive pulmonary disease, unspecified (5) Chronic kidney disease Priority: Secondary Status: Chronic Qualifiers: Chronic kidney disease stage: stage 3 (moderate) Qualified Code(s): N18.3 - Chronic kidney disease, stage 3 (moderate) (6) Hypertension Priority: Secondary Status: Chronic Qualifiers: Hypertension type: essential hypertension Qualified Code(s): I10 - Essential (primary) hypertension (7) Hypothyroidism Priority: Secondary Status: Chronic Qualifiers: Hypothyroidism type: unspecified Qualified Code(s): E03.9 - Hypothyroidism , unspecified (8) COPD exacerbation Priority: Secondary Status: Resolved - Hospital Course Hospital course: Ms. Calero is a 82 year old female POD#1 Date of procedure: 04/11/18 Pre-op diagnosis: Loosening left tibial component Post-op diagnosis: same Procedure: Left revision tibial component by Dr. Raymond. Patient seen at bedside. She is resting comfortably in bed. Incision intact - dressing noted to be appx 50% saturated with serosanguinous fluid. No calf tenderness to palpation. Neurovascularly intact b/l LE. Alert and oriented x 3 Labwork and medications reviewed. - Patient receiving 2 units PRBCs today prior to discharge. Vital signs reviewed. Pain control: Adequate Participating in PT. All questions and concerns addressed. Educated on use of incentive spirometer, ambulation, and hydration. Patient educated on post-operative restrictions and care. Addressed: KNEE IMMOBILIZER AT ALL TIMES. REMOVE FOR HYGIENE PURPOSES ONLY. D/C plan: Return to [facility] today after transfusion Vital Signs Temp Pulse Resp BP Pulse Ox 04/12/18 18:01 98.5 F 102 14 129/74 92 04/12/18 16:57 18 89 04/12/18 16:34 98.5 F 94 16 136/77 90 04/12/18 15:24 98.1 F 111 18 134/58 92 04/12/18 15:09 98.5 F 87 18 153/70 91 04/12/18 14:30 98.6 F 99 14 133/71 91 04/12/18 11:36 16 90 04/12/18 11:31 97.9 F 86 16 123/74 96 04/12/18 11:16 98.0 F 90 18 131/70 04/12/18 07:52 20 95 04/12/18 07:21 97.9 F 87 18 130/66 96 04/12/18 04:29 98.0 F 88 16 133/72 95 04/12/18 04:24 16 92 04/12/18 01:25 97.8 F 90 16 125/70 94 Intake and Output 04/12/18 04/12/18 04/12/18 07:59 15:59 23:59 Intake Total 100 / 100 1031 / 1031 294 / 294 Output Total 500 / 500 Balance -400 / -400 1031 / 1031 294 / 294 Intake: IV Fluids 100 / 100 Ancef 2,000 MG In 0.9 % Sodium 100 / 100 Chloride 100 ML @ 200 mls/hr IVPB Q8H [facility] Rx#:[id number] Oral 720 / 720 Blood Product 311 / 311 294 / 294 Rbcs Leuko Poor As-1 Unit 311 / 311 [id number] Rbcs Leuko Poor As-1 Unit 0 / 0 294 / 294 [id number] Output: Catheter 500 / 500 Other: Meal Lunch Percent of Meal Consumed 100% Weight 101.8 kg Patient Weight 04/12/18 23:59 Weight 101.8 kg - Time Spent with Patient Total time spent providing and/or coordinating discharge services: Less than 30 minutes Date of admission: 04/10/18 16:07 Primary care physician: Arpan Larkin, Consults: 04/10/18 16:12 Consult to Inspector Dials [CONS] Routine Reason for SW Consult: post op joint replacement 04/11/18 14:23 Consult to Occupational Therapy [CONS] Routine Comment: Evaluate, develop and implement POC Reason for Consult: post knee surgery - no knee motion Does patient have active BEDREST order?: No Is patient medically & hemodynamically stable?: Yes Consult to Orthopedic Navigator [CONS] [CONS] Routine Consult to Physical Therapy [CONS] Routine Comment: Evaluate, develop and impliment POC Reason for Consult: post knee surgery - no knee motion Does patient have active BEDREST order?: No Is patient medically & hemodynamically stable?: Yes Consult to Inspector Dials [CONS] Routine Reason for SW Consult: post op joint replacement RT Post Op Consult [CONS] Routine Anticipated date of discharge: 04/12/18 Labs on day of discharge: Labs from last 24 hours 04/12/18 04/11/18 04/11/18 00:11 13:48 00:49 Hgb 8.7 L 9.5 L Hct 27.9 L 30.0 L Blood Type AB POSITIVE Antibody Screen NEGATIVE Crossmatch See Detail - Impressions ITS Impressions Chest X-Ray 04/10/18 16:10 IMPRESSION: Prominence of the interstitial markings. Correlation for interstitial edema is recommended. D/ / Leslie Heredia Cha, MD / Leslie Heredia Cha, MD Interpreting Provider: Leslie Heredia Cha, MD Chest CTA 04/11/18 10:55 IMPRESSION: 1. No pulmonary embolus. 2. No acute cardiopulmonary disease. 3. Intrathoracic stomach. No evidence of obstruction. D/ / 04/11/2018 11:56:50 Janey Pruitt MD / Olena Clifton Interpreting Provider: Janey Pruitt MD Knee X-Ray 04/11/18 10:56 IMPRESSION: Intact left total knee prosthesis without evidence of loosening. D/ / Kwadwo Singleton / Kwadwo Singleton Interpreting Provider: Kwadwo Singleton - Patient Status Functional capacity at discharge: uses cane/walker Overall status at discharge: patient is progressing back to baseline - Diet and Activity Activity: as per physical therapy Diet: advance to your usual diet
[2018-04-11] MEDS ORDERED: Acetaminophen IV 1,000 MG/100 ML INFUS..BTL ONE (12:13)
[2018-04-11] MEDS ORDERED: *HR* HYDROmorphone (PF) 1 MG/ML SYRINGE ONE (12:13)
[2018-04-11] MEDS ORDERED: *HR* PHENYLEPHRINE 1,000 MCG/10 ML SYRINGE IVP ONE (12:20)
[2018-04-11] MEDS ORDERED: Furosemide 40 MG/4 ML VIAL ONE ×2 (12:39→12:40)
[2018-04-11] MEDS ORDERED: *HR* Succinylcholine 200 MG/10 ML VIAL IVP ONE (12:52)
[2018-04-11] MEDS ORDERED: Lidocaine -MPF 4% 5 ML AMPUL ONE (12:52)
[2018-04-11] MEDS ORDERED: *HR* HYDROmorphone (PF) 1 MG/ML SYRINGE IVP PRN (13:00)
[2018-04-11] MEDS ORDERED: *HR* OxyCODONE Immed Rel 5 MG TABLET PO PRN (13:00)
--- NOTE | 2018-04-11 13:05 | Anesthesia Procedures ---
Date of Encounter: 04/11/18 Time of Encounter: 12:15 Procedures: Anesthesia - Nerve Block Procedure Date: 04/11/18 Time: 12:15 Allergies/Adv Reactions: Diclofenac [From Arthrotec] Allergy (Verified 03/29/18 13:59) See Comments misoprostol [From Arthrotec] Allergy (Verified 03/29/18 13:59) See Comments Wskqhdt-Aos-Mef Reductase Inhibitor Allergy (Verified 03/29/18 13:59) See Comments morphine Adverse Reaction (Verified 03/29/18 13:59) Agitated Pre-op Diagnosis: left tibial loosening Surgical Procedure: left total knee revision Checklist: Correct Patient Identifier, Correct procedure, History checked Correct side: Left Blood Thinner: Yes (plaxis) Monitor Applied: EKG, BP, Pulse Oximetry Sedation: Versed (mg): 1 Sedation: Fentanyl (mcg): 50 Pre-op Neuro Deficits: No Block Type: Other (adductor canal) Ultrasound used: Yes Anatomy identified: Yes Visual spread of Local: Yes Neuro Stimulation: No Blood on Needle Aspiration: No Smooth Injection of Local: Yes Pain with Injection of Local: No Prep: Chlorhexadine Needle: 21 x 100 mm Stimuplex Local: Other (with 8 mg decardon) Volume (cc): 30 Complications: None/effective block Vitals: Vital Signs Vital Signs Assessment Start: 04/10/18 15:43 Freq: Q4H Status: Active Protocol: Activity Type Activity Date Activity User E-Sign Co-Sign Detail Recorded Client Recorded Date Recorded By Document 04/10/18 15:43 AWE [id number] 04/10/18 15:44 AWE Created 04/10/18 15:44 [id number] [id number] 04/10/18 15:44 AWE 04/10/18 15:43 Vital Signs with MEWS [Temperature] -Temperature (97.6 F-99.6 F) 97.6 F -Temperature Source Oral [Pulse] -Pulse Rate (beats/min) 84 [Respirations] -Respiratory Rate (breaths/min) 16 -Pulse Oximetry (%) 95 -Oxygen Delivery Method Nasal Cannula -Oxygen Flow Rate (LPM) 2 [Blood Pressure] -Blood Pressure (mm Hg) 133/74 -Blood Pressure Location Right Arm -Source Automatic Cuff -Position HOB Elevated [MEWS Score] -Neuro Status *recalled from last Alert documentation -MEWS Score 1 Vital Signs Assessment Start: 04/10/18 16:12 Freq: [id number],Q1HX2,Q4H Status: Active Protocol: Activity Type Activity Date Activity User E-Sign Co-Sign Detail Recorded Client Recorded Date Recorded By [employer] 04/10/18 16:36 [id number] [email or web address] 04/10/18 16:36 BKG DAEMON Document 04/10/18 19:40 ANJ [id number] 04/10/18 20:02 ANJ Document 04/11/18 04:29 ANJ [id number] 04/11/18 04:29 ANJ Document 04/11/18 07:52 [id number] 04/11/18 07:52 [id number] 04/10/18 04/11/18 04/11/18 19:40 04:29 07:52 Vital Signs with MEWS [Temperature] -Temperature (97.6 F-99.6 F) 98.0 F 98.3 F 98.2 F -Temperature Source Oral Oral Oral [Pulse] -Pulse Rate (beats/min) 81 81 92 [Respirations] -Respiratory Rate (breaths/min) 17 16 18 -Pulse Oximetry (%) 92 92 96 -Oxygen Delivery Method Room Air Nasal Cannula Nasal Cannula -Oxygen Flow Rate (LPM) 2 2 [Blood Pressure] -Blood Pressure (mm Hg) 136/74 159/74 161/79 -Blood Pressure Location Right Arm Right Arm Left Arm -Source Automatic Cuff Automatic Cuff Automatic Cuff -Position HOB Elevated HOB Elevated Supine [MEWS Score] -Neuro Status *recalled from last Alert Alert Alert documentation -MEWS Score 1 1 1 Vital Signs Assessment Start: 04/10/18 19:30 Freq: CONT Status: Active Protocol: Activity Type Activity Date Activity User E-Sign Co-Sign Detail Recorded Client Recorded Date Recorded By [employer] 04/10/18 19:32 [email or web address] 04/10/18 19:32 BKG DAEMON Document 04/10/18 23:29 [email or web address] [id number] 04/10/18 23:30 ANJ 04/10/18 23:29 Vital Signs with MEWS [Temperature] -Temperature (97.6 F-99.6 F) 98.1 F -Temperature Source Oral [Pulse] -Pulse Rate (beats/min) 81 [Respirations] -Respiratory Rate (breaths/min) 17 -Pulse Oximetry (%) 93 -Oxygen Delivery Method Nasal Cannula -Oxygen Flow Rate (LPM) 2 [Blood Pressure] -Blood Pressure (mm Hg) 146/60 -Blood Pressure Location Right Arm -Source Automatic Cuff -Position HOB Elevated [MEWS Score] -Neuro Status *recalled from last Alert documentation -MEWS Score 1 Temp Pulse Resp BP Pulse Ox 04/11/18 12:00 90 166/79 94 04/11/18 07:52 98.2 F 92 18 161/79 96 04/11/18 04:29 98.3 F 81 16 159/74 92 04/11/18 03:52 16 93 04/10/18 23:29 98.1 F 81 17 146/60 93 04/10/18 22:48 16 93 04/10/18 19:40 98.0 F 81 17 136/74 92 04/10/18 15:45 95 04/10/18 15:43 97.6 F 84 16 133/74 95 Comments: view on ultrasound showed an artery 8 cm deep with poor visualization, with the patient on plavix, an iPACK block was not performed
--- NOTE | 2018-04-11 13:13 | Anesthesia Progress Note ---
Date of Encounter: 04/11/18 Time of Encounter: 11:55 Anesthesia Note - Note Note: Patient scheduled for TKA tibial component revision by secondary to acute change position. Surgery deemed urgent per Dr. Raymond (orthopedics). Patient has been hypoxemic since last admission, despite PRBC transfusion. PE workup was negative on 03/06. Pt currently with SpO2 of 88% on RA and 92% on 3LNC. CXR last evening and CTA this morning, show interstitial edema, and no PE. Ideally, patient should get a TTE to evaluate, ventricular function, and then diuresis if indicated. The patient also needs PFTs to quantify her COPD, and determine if this is now the patient's baseline. Vital Signs/O2 Sat, Most Current Temp Pulse Resp BP Pulse Ox 98.2 F 90 18 166/79 94 04/11/18 07:52 04/11/18 12:00 04/11/18 07:52 04/11/18 12:00 04/11/18 12:00 Patient is not a candidate for SAB, secondary to plavix. Will proceed with ACB, and GA. Discussed concerns and risks at length with Dr. Raymond, and Dr. Poon the managing hospitalist.
--- NOTE | 2018-04-11 13:25 | Orthopedic Operative Note ---
Date of procedure: 04/11/18 Pre-op diagnosis: Loosening left tibial component Post-op diagnosis: same Procedure: Procedure: Left revision tibial component Estimated blood loss: 300 cc Hardware: Metal and polyethylene replacement Sonal, 4 baseplate, 5 mm medial augment, 150 mm x 14 stem, 16 Noemi TS Exam Under anesthesia: Incision healing well no active drainage or erythema. Minimal swelling Procedural Notes: Loosening of tibial component with subsidence into flexion. Operative procedure: The patient was brought to the operating room and placed on the operating room table. After general anesthesia was administered the operative knee was examined. Findings were noted in the exam under anesthesia. The operative extremity was prepped and draped in sterile surgical fashion. The patient received IV antibiotics prior to skin incision. A standard midline incision was made centered over the patella. The incision was made through the skin and subcutaneous tissue through the old incision. A medial parapatellar tendon approach was performed. Care was taken to preserve tissue along the medial aspect of the patella. And to protect the patella tendon. The deep MCL was released off the medial tibia. The infra patella fat pad was excised. Cultures were obtained as well as Gram stain. The femur was displaced posteriorly the tibial component with Noemi was easily removed from the proximal tibia. The tibia was then recut. The tibia was prepared first sized to a 4 reamed to a 14 x 150 stem. The finishing punch was seated. Trial had good fit and fixation with a 5 mm augment medially. Trial reduction revealed full extension and full flexion no varus valgus instability with an 16 TS Noemi. Trial components removed knee sat for 2 minutes with a antibacterial solution. It was irrigated out with pulse irrigation. Components were assembled on the back table. The tibia cemented. The 16 TS Noemi was seated and secure. The had full flexion and full extension and excellent patella tracking no varus valgus instability. After the cement hardened the knee was irrigated out again. The knee was taken through a range of motion had excellent patella tracking. The extensor mechanism was closed with a running #2 PDS suture. The deep tissue was irrigated and closed deep with #1 PDS suture superficially with 0 PDS suture. The skin was closed with Dermabond and skin paul. The patient was placed in a sterile dressing and postoperative brace. They were extubated and transferred to recovery room in stable condition. Anesthesia: GETA Surgeon: Roman Raymond Was there an assistant professor of sociology present: No Estimated blood loss (cc): 300 Condition: stable Disposition: PACU
[2018-04-11 14:02] LABS: Hemoglobin 9.5 g/dL (11.5-15.4)
--- NOTE | 2018-04-11 14:03 | Anesthesia Evaluation Post Op ---
Date of Encounter: 04/11/18 Time of Encounter: 14:05 - Vital Signs Vital Signs: Selected Entries 04/11/18 13:32 04/11/18 13:42 04/11/18 13:52 Temperature 99.9 F H Pulse Rate 93 Respiratory Rate 16 Blood Pressure 156/83 O2 Sat by Pulse Oximetry 94 - Cardiovascular Regular Rate - Mental Status Mental Status: Alert & Oriented, Answers Appropriately - Nausea Vomiting Nausea Vomiting: Not Present - Hydration Hydration: NPO - Discharge PostOp Status: Transfer Patient to floor (Room air sats stable in mid 90s. Resting comfortably.)
[2018-04-11] MEDS ORDERED: *HR* OxyCODONE/APAP 5/325 TABLET PO PRN (14:23)
[2018-04-11] MEDS ORDERED: Naloxone 0.4 MG/ML INJ IVP PRN (14:23)
[2018-04-11] MEDS ORDERED: Sennosides 8.6 MG TABLET PO PRN (14:23)
[2018-04-11] MEDS ORDERED: Temazepam 15 MG CAPSULE PO PRN (14:23)
[2018-04-11] MEDS ORDERED: Ondansetron 4 MG/2 ML VIAL IVP PRN (14:23)
[2018-04-11] MEDS ORDERED: MOM Conc 10 ML UD.LIQ PO PRN (14:23)
[2018-04-11] MEDS ORDERED: MethylPREDNISolone 40 MG/ML VIAL IVP SCH (16:00)
--- NOTE | 2018-04-11 16:54 | Orthopedics Progress Note ---
Date of Encounter: 04/11/18 Time of Encounter: 16:53 - Assessment and Plan (1) Status post revision of total replacement of left knee Current Visit: Yes Status: Acute (2) Morbid obesity with BMI of 40.0-44.9, adult Current Visit: Yes Status: Chronic (3) Colonic cancer Current Visit: No Status: Chronic Qualifiers: Colon location: transverse Qualified Code(s): C18.4 - Malignant neoplasm of transverse colon (4) Tibial plateau fracture, left Current Visit: No Status: Acute Qualifiers: Encounter type: subsequent encounter Fracture type: closed Fracture healing: with routine healing Qualified Code(s): S82.142D - Displaced bicondylar fracture of left tibia, subsequent encounter for closed fracture with routine healing (5) Decreased ambulation status Current Visit: No Status: Acute (6) Hypertension Current Visit: No Status: Chronic Qualifiers: Hypertension type: essential hypertension Qualified Code(s): I10 - Essential (primary) hypertension (7) Hypothyroidism Current Visit: No Status: Chronic Qualifiers: Hypothyroidism type: unspecified Qualified Code(s): E03.9 - Hypothyroidism , unspecified (8) TIA (transient ischemic attack) Current Visit: No Status: Chronic (9) Status post total knee replacement, left Current Visit: No Status: Acute (10) COPD (chronic obstructive pulmonary disease) Current Visit: No Status: Chronic Qualifiers: COPD type: unspecified COPD Qualified Code(s): J44.9 - Chronic obstructive pulmonary disease, unspecified (11) Loosening of knee joint prosthesis Current Visit: Yes Status: Acute Qualifiers: Encounter type: subsequent encounter Qualified Code(s): T84.038D - Mechanical loosening of other internal prosthetic joint, subsequent encounter; Z96.659 - Presence of unspecified artificial knee joint (12) Hypoxia Current Visit: Yes Status: Acute (13) Chronic pain Current Visit: No Status: Chronic Qualifiers: Chronic pain type: other chronic pain Qualified Code(s): G89.29 - Other chronic pain Subjective Interval history: Postoperative evaluation performed and approximately 1600. Patient resting well neurovascular intact left lower extremity O2 saturations 91 on room air. No distress without complaints Objective Vital signs: Vital Signs Temp Pulse Resp BP Pulse Ox 04/11/18 16:25 98.9 F 86 20 156/81 94 04/11/18 16:23 18 94 04/11/18 15:29 98.0 F 84 16 162/80 93 04/11/18 15:04 83 14 160/81 92 04/11/18 14:26 97.6 F 89 14 154/79 92 04/11/18 14:02 99.0 F 89 14 156/80 93 04/11/18 13:52 91 16 156/83 94 04/11/18 13:42 93 14 154/84 94 04/11/18 13:32 99.9 F H 92 14 136/76 94 04/11/18 12:00 90 166/79 94 04/11/18 07:52 98.2 F 92 18 161/79 96 04/11/18 04:29 98.3 F 81 16 159/74 92 04/11/18 03:52 16 93 04/10/18 23:29 98.1 F 81 17 146/60 93 04/10/18 22:48 16 93 04/10/18 19:40 98.0 F 81 17 136/74 92 Intake and Output 04/11/18 04/11/18 04/11/18 07:59 15:59 23:59 Output Total 1275 / 1275 Balance -1275 / -1275 Output: Urine 600 / 600 Estimated Blood Loss 300 / 300 Urine Amount (Catheter) 150 / 150 Catheter 225 / 225 Other: Meal Breakfast Percent of Meal Consumed 0% # Voids 1 Weight 102.3 kg Patient Weight 04/11/18 23:59 Weight 102.3 kg - Labs CBC & BMP: 04/11/18 13:48 04/11/18 00:49 Labs: Abnormal lab results RBC 3.18 M/mcL (3.82-4.97) L 04/10/18 17:06 Hgb 9.5 g/dL (11.5-15.4) L 04/11/18 13:48 Hct 30.0 % (35.3-44.9) L 04/11/18 13:48 MCHC 30.8 g/dL (31.6-35.5) L 04/10/18 17:06 RDW 15.5 % (11.5-14.5) H 04/10/18 17:06 PT 12.8 Seconds (9.4-12.1) H 04/10/18 17:06 Chloride 109 mEq/L (98-107) H 04/11/18 00:49 BUN 35 mg/dL (8-23) H 04/11/18 00:49 Est GFR ( Amer) 57 (> 60) L 04/11/18 00:49 Est GFR (Non-Af Amer) 47 (> 60) L 04/11/18 00:49 BUN/Creatinine Ratio 31 (6-26) H 04/11/18 00:49 Glucose 186 mg/dL (70-105) H 04/11/18 00:49 Calculated Osmolality 301 (280-300) H 04/11/18 00:49 B-Natriuretic Peptide 191 pg/mL (Less than 100) H 04/11/18 00:49 - VTE Documentation of Mechanical Device: Venous foot pump, device Consult Discharge Plan - Plan Referrals: Arpan aLrkin DO [Primary Care Provider] - Prescriptions: levoFLOXacin [Levofloxacin] 750 mg PO Q24H #10 tablet OxyCODONE Immed Rel [Roxicodone 5 MG] 5 mg PO Q4HR PRN 5 Days #20 tablet PRN Reason: Pain
[2018-04-11] MEDS: *HR* Enoxaparin 30 MG/0.3 ML SYRINGE SQ SCH (17:41)
[2018-04-11] MEDS: MethylPREDNISolone 40 MG/ML VIAL IVP SCH ×2 (17:41→23:33)
[2018-04-12 00:53] LABS: Hematocrit 27.9 % (35.3-44.9); Hemoglobin 8.7 g/dL (11.5-15.4)
[2018-04-12] MEDS: Acetaminophen 325 MG TABLET PO PRN ×2 (02:56→10:00)
[2018-04-12] MEDS: Ipratropium/Albuterol Neb 3 ML IH SCH ×5 (03:22→16:55)
[2018-04-12] MEDS ORDERED: Furosemide 20 MG/2 ML VIAL IVP ONE ×2 (06:36→17:28)
[2018-04-12] MEDS: MethylPREDNISolone 40 MG/ML VIAL IVP SCH (07:31)
[2018-04-12] MEDS: Budesonide/Formoterol 160/4.5 MDI IH SCH (07:55)
--- NOTE | 2018-04-12 08:22 | Orthopedics Progress Note ---
Date of Encounter: 04/12/18 Time of Encounter: 08:22 - Assessment and Plan (1) Status post revision of total replacement of left knee Current Visit: Yes Status: Acute (2) Morbid obesity with BMI of 40.0-44.9, adult Current Visit: Yes Status: Chronic (3) Colonic cancer Current Visit: No Status: Chronic Qualifiers: Colon location: transverse Qualified Code(s): C18.4 - Malignant neoplasm of transverse colon (4) Tibial plateau fracture, left Current Visit: No Status: Acute Qualifiers: Encounter type: subsequent encounter Fracture type: closed Fracture healing: with routine healing Qualified Code(s): S82.142D - Displaced bicondylar fracture of left tibia, subsequent encounter for closed fracture with routine healing (5) Decreased ambulation status Current Visit: No Status: Acute (6) Hypertension Current Visit: No Status: Chronic Qualifiers: Hypertension type: essential hypertension Qualified Code(s): I10 - Essential (primary) hypertension (7) Hypothyroidism Current Visit: No Status: Chronic Qualifiers: Hypothyroidism type: unspecified Qualified Code(s): E03.9 - Hypothyroidism , unspecified (8) TIA (transient ischemic attack) Current Visit: No Status: Chronic (9) Status post total knee replacement, left Current Visit: No Status: Acute (10) COPD (chronic obstructive pulmonary disease) Current Visit: No Status: Chronic Qualifiers: COPD type: unspecified COPD Qualified Code(s): J44.9 - Chronic obstructive pulmonary disease, unspecified (11) Loosening of knee joint prosthesis Current Visit: Yes Status: Acute Qualifiers: Encounter type: subsequent encounter Qualified Code(s): T84.038D - Mechanical loosening of other internal prosthetic joint, subsequent encounter; Z96.659 - Presence of unspecified artificial knee joint (12) Hypoxia Current Visit: Yes Status: Acute (13) Chronic pain Current Visit: No Status: Chronic Qualifiers: Chronic pain type: other chronic pain Qualified Code(s): G89.29 - Other chronic pain Subjective Interval history: Patient was seen this morning doing well without complaints. Afebrile vital signs stable. Operative extremity: Neurovascularly intact Dressing clean dry and intact Calves nontender Assessment and plan: Continue with postoperative care Hemoglobin 8.7 transfuse 2 units plan for discharge today Objective Vital signs: Vital Signs Temp Pulse Resp BP Pulse Ox 04/12/18 07:52 20 95 04/12/18 07:21 97.9 F 87 18 130/66 96 04/12/18 04:29 98.0 F 88 16 133/72 95 04/12/18 04:24 16 92 04/12/18 01:25 97.8 F 90 16 125/70 94 04/11/18 21:15 93 04/11/18 21:07 98.1 F 84 17 120/71 93 04/11/18 19:48 14 91 04/11/18 17:46 98.1 F 92 20 155/74 92 04/11/18 16:25 98.9 F 86 20 156/81 94 04/11/18 16:23 18 94 04/11/18 15:29 98.0 F 84 16 162/80 93 04/11/18 15:04 83 14 160/81 92 04/11/18 14:26 97.6 F 89 14 154/79 92 04/11/18 14:02 99.0 F 89 14 156/80 93 04/11/18 13:52 91 16 156/83 94 04/11/18 13:42 93 14 154/84 94 04/11/18 13:32 99.9 F H 92 14 136/76 94 04/11/18 12:00 90 166/79 94 Intake and Output 04/11/18 04/12/18 04/12/18 23:59 07:59 15:59 Intake Total 100 / 100 100 / 100 Output Total 350 / 350 500 / 500 Balance -250 / -250 -400 / -400 Intake: IV Fluids 100 / 100 100 / 100 Ancef 2,000 MG In 0.9 % Sodium 100 / 100 100 / 100 Chloride 100 ML @ 200 mls/hr IVPB Q8H [facility] Rx#:[id number] Output: Catheter 350 / 350 500 / 500 Other: Weight 101.8 kg Patient Weight 04/12/18 23:59 Weight 101.8 kg - Labs CBC & BMP: 04/12/18 00:11 04/11/18 00:49 Labs: Abnormal lab results RBC 3.18 M/mcL (3.82-4.97) L 04/10/18 17:06 Hgb 8.7 g/dL (11.5-15.4) L 04/12/18 00:11 Hct 27.9 % (35.3-44.9) L 04/12/18 00:11 MCHC 30.8 g/dL (31.6-35.5) L 04/10/18 17:06 RDW 15.5 % (11.5-14.5) H 04/10/18 17:06 PT 12.8 Seconds (9.4-12.1) H 04/10/18 17:06 Chloride 109 mEq/L (98-107) H 04/11/18 00:49 BUN 35 mg/dL (8-23) H 04/11/18 00:49 Est GFR ( Amer) 57 (> 60) L 04/11/18 00:49 Est GFR (Non-Af Amer) 47 (> 60) L 04/11/18 00:49 BUN/Creatinine Ratio 31 (6-26) H 04/11/18 00:49 Glucose 186 mg/dL (70-105) H 04/11/18 00:49 Calculated Osmolality 301 (280-300) H 04/11/18 00:49 B-Natriuretic Peptide 191 pg/mL (Less than 100) H 04/11/18 00:49 - VTE Documentation of Mechanical Device: Intermittent pneumatic compression device Consult Discharge Plan - Plan Referrals: Arpan Larkin DO [Primary Care Provider] - Prescriptions: levoFLOXacin [Levofloxacin] 750 mg PO Q24H #10 tablet
[2018-04-12] MEDS ORDERED: Fenofibrate 54 MG TABLET PO SCH (09:00)
[2018-04-12] MEDS ORDERED: Celecoxib 200 MG CAPSULE PO SCH (09:00)
[2018-04-12] MEDS ORDERED: Pregabalin 50 MG CAPSULE PO SCH (09:00)
[2018-04-12] MEDS ORDERED: predniSONE 20 MG TABLET PO SCH (09:30)
--- NOTE | 2018-04-12 09:35 | Internal Med Progress Note ---
Hospitalist Progress Note - Encounter Date of Encounter: 04/12/18 Time of Encounter: 09:33 - Subjective Interval History: Postop day 1 status post posterior repair of loosening of knee joint prosthesis. Recovering well postoperatively. denies shortness of breath chest pain headache dizziness cough abdominal pain urinary bowel complaint. Oxygen by nasal cannula 2 L and saturating in 90s. Reviewed the lab with normal creatinine level, slight trending down hemoglobin. BNP 191. - Exam Vitals: Temp Pulse Resp BP Pulse Ox 97.9 F 87 20 130/66 95 04/12/18 07:21 04/12/18 07:21 04/12/18 07:52 04/12/18 07:21 04/12/18 07:52 Exam: General appearance: No acute distress, A&O X 3 Eye exam: EOMI, PERRLA ENT exam: Moist oral mucosa Neck nontender, supple Respiratory exam: Clear to auscultation bilaterally Cardiovascular exam: Regular rate and rhythm, no systolic murmur Abdominal exam: Soft, nontender, nondistended, positive bowel sounds Extremities exam: Left knee repair. Tender at surgical site, moving all the toes. Neurological exam: Grossly CN II-XII intact, no focal deficits. No facial droop. Normal speech. - Assessment and Plan (1) Loosening of knee joint prosthesis Current Visit: Yes Status: Acute Assessment and Plan: Postop day 1 status post revision. Primary team ortho physician is managing. Patient is tolerating oral diet and recovering fairly well postoperatively. Slight trending down hemoglobin-primary team ordered 2 unit PRC with Lasix IV when necessary (2) COPD exacerbation Current Visit: Yes Status: Acute Assessment and Plan: improving.stopped IV steroid and a started 40 mg oral prednisone. Patient can be discharged on tapering his steroid 40 mg daily for 5 days and 20 mg for 5 days and follow with PCP within one week. Give the weaning off trial to oxygen. If she remains oxygen dependent . (3) Preoperative clearance Current Visit: Yes Status: Acute Assessment and Plan: Doing well postoperatively. Patient had low to moderate risk of surgery (4) Hypoxia Current Visit: Yes Status: Acute Assessment and Plan: Improving. Likely 2/2 to COPD exacerbation . CXR shows possible interstitial edema with minimal raised BNP. Lungs are clear. She may get benefit to had echo on OPD basis with the help of PCP to evaluate underlying cardiac condition. Patient denies any history of cardiac disease in the past. (5) DVT prophylaxis Current Visit: Yes Status: Acute Assessment and Plan: SCDs for now. Continue Lovenox subcutaneous. - Time Spent with Patient Total time spent is greater than 50% in coordination of care (as documented) at patient's floor/unit and/or counseling patient: 25 - 35 minutes Internal Medicine: Result - Labs CBC & Chem 7: 04/12/18 00:11 04/11/18 00:49 Labs: Short CBC 04/11/18 04/12/18 Range/Units 13:48 00:11 Hgb 9.5 L 8.7 L (11.5-15.4) g/dL Hct 30.0 L 27.9 L (35.3-44.9) % - ABG Interpretation ABG results: PT/INR, D-dimer PT 12.8 Seconds (9.4-12.1) H 04/10/18 17:06 - Impressions Impressions Chest CTA 04/11/18 10:55 IMPRESSION: 1. No pulmonary embolus. 2. No acute cardiopulmonary disease. 3. Intrathoracic stomach. No evidence of obstruction. D/ / 04/11/2018 11:56:50 Janey Pruitt MD / Olena Clifton Interpreting Provider: Janey Pruitt MD Knee X-Ray 04/11/18 10:56 IMPRESSION: Intact left total knee prosthesis without evidence of loosening. D/ / Kwadwo Singleton / Kwadwo Singleton Interpreting Provider: Kwadwo Singleton - VTE Documentation of Mechanical Device: Intermittent pneumatic compression device Consult Discharge Plan - Plan Referrals: Arpan Larkin DO [Primary Care Provider] - Prescriptions: levoFLOXacin [Levofloxacin] 750 mg PO Q24H #10 tablet (1) Loosening of knee joint prosthesis Qualifiers: Encounter type: subsequent encounter Qualified Code(s): T84.038D - Mechanical loosening of other internal prosthetic joint, subsequent encounter; Z96.659 - Presence of unspecified artificial knee joint
[2018-04-12] MEDS ORDERED: Budesonide/Formoterol 80/4.5 MDI IH SCH (10:00)
[2018-04-12] MEDS ORDERED: 0.9 % Sodium Chloride 250 ML ONE ×2 (10:44→14:49)
--- NOTE | 2018-04-12 12:41 | Physician Discharge Referral ---
ExtendedCare Referral Info Transfer To: [facility] Provider in Charge: Dr. Roman Raymond Provider in Charge after Transfer: PCP - Diagnosis (1) COPD exacerbation Priority: Secondary Status: Resolved (2) Loosening of knee joint prosthesis Priority: Primary Status: Acute (3) Status post revision of total replacement of left knee Priority: Primary Status: Acute (4) Morbid obesity with BMI of 40.0-44.9, adult Priority: Secondary Status: Chronic (5) Acute blood loss anemia Priority: Secondary Status: Resolved (6) Decreased ambulation status Priority: Secondary Status: Acute (7) Hypertension Priority: Secondary Status: Chronic (8) Hypothyroidism Priority: Secondary Status: Chronic Expected Duration of Placement: Less than 30 days Prognosis: Good Aware of Diagnosis: Patient Aware of Prognosis: Patient - Transfer Medications Prescriptions: levoFLOXacin [Levofloxacin] 750 mg PO Q24H #10 tablet Home Medications: Clopidogrel [Plavix] 75 mg PO DAILY 09/08/15 [History] Colesevelam HCl [Welchol] 1,875 mg PO BID 09/08/15 [History] Duloxetine HCl [Cymbalta] 60 mg PO DAILY 09/08/15 [History] Docusate [Colace] 100 mg PO BID #60 capsule 09/10/15 [Rx] Fenofibrate Nanocrystallized [Tricor] 48 mg PO DAILY 08/26/16 [History] Amitriptyline [Elavil] 50 mg PO HS 03/29/18 [History] Fluticasone/Salmeterol [Advair 250-50 Diskus] 1 puff IH BID 03/29/18 [History] Levothyroxine [Synthroid] 100 mcg PO DAILY 03/29/18 [History] Aspirin Enteric Coated [Aspirin EC] 325 mg PO BID 10 Days tablet. 04/05/18 [ Rx] Celecoxib [Celebrex] 200 mg PO DAILY 04/11/18 [History] Meloxicam [Mobic] 15 mg PO DAILY 04/11/18 [History] levoFLOXacin [Levofloxacin] 750 mg PO Q24H #10 tablet 04/11/18 [Rx] Ergocalciferol (VITAMIN D2) [Vitamin D2] 50,000 unit PO WE 04/12/18 [History] Pantoprazole Sodium [Pantoprazole Sodium] 40 mg PO DAILY 04/12/18 [History] Pregabalin [Lyrica] 200 mg PO BID 04/12/18 [History] Allergies/Adverse Reactions: 3 Allergy/AdvReac Type Severity Reaction Status Date / Time Diclofenac [From Arthrotec] Allergy See Verified 03/29/18 13:59 Comments misoprostol [From Arthrotec] Allergy See Verified 03/29/18 13:59 Comments Ycfetcw-Drf-Efz Reductase Allergy See Verified 03/29/18 13:59 Inhibitor Comments morphine AdvReac Agitated Verified 03/29/18 13:59 - Respiratory Orders Smoking Cessation: Smoking cessation has been advised. For more information, call the [place] Tobacco Quit Line at 3-751-VOZQ-NOW. - Ancillary Orders May use pressure relief devices daily prn, May go on NAHOMI w/family/respon green party w /meds at nurse discretion PRN, May consult with Dentist, Production Line Manager, Casket Coverer PRN - Mobility Orders Chair, Ambulate - Rehabiliation Orders Rehab Potential: Good Rehab Orders: Evaluation for Physical Therapy, Evaluation for Occupational Therapy Other: No knee motion to the left knee. Continue in knee immobilizer at all times. Remove for hygiene purposes only. Weightbearing as tolerated - Treatments Skin tear care topically daily PRN per policy List/Other: Opsite placed. Keep dressing intact until first follow up appointment. If greater than 50% saturated, notify office, remove dressing and place appropriate dressing back in place. Leave Zipline and paul intact. Opsite dressing is water resistant, not water-proof. OK to shower, but do not get dressing wet. - Diet Orders Regular CERTIFICATION: I certify that the transfer of the above named patient to an Extended Care Facility is necessary for the continuing treatment of the diagnosis listed. The above information is true and accurate reflection of patient's current condition. Confidential - Redisclosure prohibited without a patient's written consent.
--- NOTE | 2018-04-12 12:42 | Electrocardiograph Report ---
[address] [address] Test Date: 2018-04-10 Pat Name: Maye Calero Department: 114 Room: [facility] Gender: F Inspector Filters: : 1935 Requested By: Yanci Kaiser Order Number: [id number] Reading MD: Kraig Chicas Measurements Intervals [place] Rate: 82 P: 46 ME: 190 QRS: -31 QRSD: 96 T: 58 QT: 381 QTc: 420 Interpretive Statements SINUS RHYTHM WITH OCCASIONAL SUPRAVENTRICULAR PREMATURE COMPLEXES MARKED LEFT AXIS DEVIATION Electronically Signed On 04-12-2018 12:41:04 EDT by Kraig Chicas
[2018-04-12] MEDS: *HR* Enoxaparin 30 MG/0.3 ML SYRINGE SQ SCH (17:55)
[2018-04-12 18:03] VITALS: BP 129/74
[2018-04-12] MEDS ORDERED: Levofloxacin 750 MG/150 ML 750 MG/150 ML BAG IVPB SCH (22:00)
== END 2018-04-12 19:22 | DRG 467 ==
LOC: 3NENU → SUATTDRO 16:07
PROVIDERS: ADMIT Orthopaedic Surgery; ATTEND Internal Medicine

== ENCOUNTER 2018-05-21 11:22 | Inpatient (IN) ==
[~2018-05-21 11:22] MED LIST: Aminoglycoside Consult 1 EACH MC ONE
[2018-05-21] MEDS ORDERED: Naloxone 0.4 MG/ML INJ IVP PRN (13:47)
[2018-05-21] MEDS ORDERED: Acetaminophen 325 MG TABLET PO PRN (13:47)
[2018-05-21] MEDS ORDERED: traMADol 50 MG TABLET PO PRN (13:47)
[2018-05-21] MEDS ORDERED: *HR* OxyCODONE Immed Rel 5 MG TABLET PO PRN (13:47)
[2018-05-21] MEDS ORDERED: 0.9 % Sodium Chloride 1,000 ML IVC SCH (14:00)
[2018-05-21] MEDS ORDERED: Gabapentin 300 MG CAPSULE PO SCH ×2 (15:00→21:00)
[2018-05-21 15:13] LABS: Basophils % 0.7 %; Eosinophils # 0.1 K/mcL (0.0-0.6); Hematocrit 23.5 % (35.3-44.9); Hemoglobin 7.2 g/dL (11.5-15.4); INR 1.1; Immature Granulocytes % 0.4 % (0-4); Lymphocytes # 1.5 K/mcL (0.6-4.6); Lymphocytes % 27.1 %; Mean Corpuscular HGB Conc 30.6 g/dL (31.6-35.5); Mean Corpuscular Hemoglobin 28.5 pg (28.0-33.3); Mean Corpuscular Volume 92.9 fL (83.0-100.0); Mean Platelet Volume 9.1 fL (9.4-12.4); Monocytes # 0.4 K/mcL (0.0-1.3); Monocytes % 6.5 %; Neutrophils # 3.4 K/mcL (1.6-8.9); Platelet Count 236 K/mcL (140-400); Red Blood Count 2.53 M/mcL (3.82-4.97); Red Cell Distribution Width 15.6 % (11.5-14.5); Segmented Neutrophils % 63.3 %
[2018-05-21 15:16] LABS: Activated Partial Thrombo Time 34.8 Seconds (26.0-36.0)
[2018-05-21 15:29] LABS: Calcium 8.6 mg/dL (8.6-10.3); Potassium 3.9 mEq/L (3.5-5.1)
--- NOTE | 2018-05-21 17:13 | Orthopedic Consult Note ---
Date of Encounter: 05/21/18 Time of Encounter: 17:07 Assessment and Plan (1) Non-healing surgical wound Current Visit: No Status: Acute 82F with recurrent dehiscence of her surgical wound/poor wound healing; Wound care evacuated hematoma and was able to appreciate the prosthetic visually; Discussed with Dr. Raymond who agree to see her in his clinic this morning; wet to dry dressings change daily or as needed for saturation. Plan for surgery with - consent reviewed with patient: Left knee I&D with wound closure. Will obtain hospitalist consult for surgical optimization and CXR findings. Hold Vancomycin due to acute on chronic kidney changes. Will obtain intra-operative cultures. Qualifiers: Encounter type: initial encounter Qualified Code(s): T81.89XA - Other complications of procedures, not elsewhere classified, initial encounter (2) Status post revision of total replacement of left knee Current Visit: No Status: Acute (3) Acute on chronic kidney failure Current Visit: Yes Status: Acute (4) COPD (chronic obstructive pulmonary disease) Current Visit: Yes Status: Acute (5) Decreased ambulation status Current Visit: No Status: Acute (6) Tibial plateau fracture, left Current Visit: No Status: Acute Qualifiers: Encounter type: subsequent encounter Fracture type: closed Fracture healing: with routine healing Qualified Code(s): S82.142D - Displaced bicondylar fracture of left tibia, subsequent encounter for closed fracture with routine healing (7) Chronic pain Current Visit: No Status: Chronic Qualifiers: Chronic pain type: other chronic pain Qualified Code(s): G89.29 - Other chronic pain (8) Hypertension Current Visit: No Status: Chronic Qualifiers: Hypertension type: essential hypertension Qualified Code(s): I10 - Essential (primary) hypertension (9) Morbid obesity with BMI of 40.0-44.9, adult Current Visit: No Status: Chronic History of Present Illness Chief complaint: Left Knee Wound dehiscence HPI: Ms. Calero is a 82 year old female, well known to orthopedic office, currently residing at [facility]. She reported to clinic today after seeing wound care and her knee was debrided. She is s/p Left revision tibial component. Date of surgery 04-11-18, with prior Left TKR due to a fracture. She was seen in ED on 05/06, with Left knee wound dehiscence, ED cleansed and performed loose tension suture. On exam on Sunday, suture had diminished. She had 2x3 area of dehiscence to distal incision. [place] were removed from wound, area cleansed, exposed suture trimmed. She has been followed in the office weekly for wound dehiscence and hematoma presence. Wound care consult obtained last week due to nonhealing wound. In the office today, Patient reports she was sitting on commode yesterday and felt knee opened again with bloody drainage. She was seen in the ED last night , and followed up with wound care today. Wound care debrided hematoma and felt hardware to be exposed. In office patient has large gapping wound along anterior knee and distal incision, with approx 2in of depth. No visible tendon noted. saw and evaluated this patient. No erythema, purulence on exam. Minimal tenderness noted along knee. No calf pain. Patient has been on Vancomycin since 04/29 due to early cellulitis and plan to continue x 4 weeks. Continue with knee immobilizer, no knee ROM. WBAT Past Med Surg Social Fam HX - Past Medical History Medical history: arthritis, cancer, COPD, GERD, hyperlipidemia, hypertension, TIA Additional medical history: colon CA, neuropathy, Psychiatric history: anxiety, depression, panic disorder - Past Surgical History Surgical History: appendectomy, , cancer surgery, cholecystectomy, colectomy, hysterectomy, other Additional surgical history: Left Tibial Loosening with Total left knee replacement. - Social History Smoking Status: Never smoker Smokeless Tobacco Status: No Alcohol use: none Drug use: none - Family History Mother Adopted: No Family Member Ethnicity: Non- Living Status: Hx Family Cardiac Disorders: No Hx Family Respiratory Disorders: No Hx Family Cancer: Yes (Breast cancer with mets.) Hx Family GI Disorders: No Hx Family Endocrine Disorder: No Hx Family Neuromuscular Disorders: No Hx Family Neurologic Disorders: No Hx Family HEENT Disorders: No Hx Family Autoimmune Disorders: No Medications and Allergies Clopidogrel [Plavix] 75 mg PO DAILY 09/08/15 [History] Colesevelam HCl [Welchol] 1,875 mg PO BID 09/08/15 [History] Duloxetine HCl [Cymbalta] 60 mg PO DAILY 09/08/15 [History] Fenofibrate Nanocrystallized [Tricor] 48 mg PO DAILY 08/26/16 [History] Amitriptyline [Elavil] 50 mg PO HS 03/29/18 [History] Fluticasone/Salmeterol [Advair 250-50 Diskus] 1 puff IH BID 03/29/18 [History] Levothyroxine [Synthroid] 100 mcg PO DAILY 03/29/18 [History] Aspirin Enteric Coated [Aspirin EC] 325 mg PO BID 10 Days tablet. 04/05/18 [ Rx] Celecoxib [Celebrex] 200 mg PO DAILY 04/11/18 [History] Meloxicam [Mobic] 15 mg PO DAILY 04/11/18 [History] Pantoprazole Sodium [Pantoprazole Sodium] 40 mg PO DAILY 04/12/18 [History] Pregabalin [Lyrica] 200 mg PO BID 04/12/18 [History] Cholecalciferol (D-3) [Vitamin D] 2,000 unit PO DAILY 05/21/18 [History] Gabapentin [Neurontin] 600 mg PO TID 05/21/18 [History] 3 Allergy/AdvReac Type Severity Reaction Status Date / Time Diclofenac [From Arthrotec] Allergy See Verified 05/20/18 16:50 Comments misoprostol [From Arthrotec] Allergy See Verified 05/20/18 16:50 Comments Yatwnff-Rdm-Vzj Reductase Allergy See Verified 05/20/18 16:50 Inhibitor Comments morphine AdvReac Agitated Verified 05/20/18 16:50 All Systems Reviewed: The remainder of the systems were reviewed and are negative Physical Exam - Constitutional Vitals: Temp Pulse Resp BP Pulse Ox 99.1 F 94 18 126/70 93 05/21/18 16:41 05/21/18 16:41 05/21/18 16:41 05/21/18 16:41 05/21/18 16:41 General appearance IM: A&O X 3 Exam: Wound Location Body 2: Left, Distal Wound location Body Site 2: Knee Wound Type 2: Present: Surgical Wound, Full Thickness Wound Bed Appearance 2: Present: Beach, Pale, Slough, Eschar, Necrotic Percent of Wound Bed Eschar/Black 2: 90 Percent of Wound Bed Fibrin/Yellow 2: 5 Percent of Wound Bed Slough/Yellow 2: 5 Wound Surrounding Tissue Appearance (Periwound) 2: Present: Erythematous Surrounding Tissue Temperature 2: Warm Wound Drainage Amount 2: Large Wound Drainage Description 2: Present: Serosanguineous Wound Drainage Odor 2: No Odor Wound Length 2: 6 Wound Width 2: 3.5 Wound Square Centimeters 2: 21.00 SCM Text 2: Unable to determine full depth due to necrosis. Two sutures visualized in wound bed at this time. Results - Labs Result Diagrams: 05/21/18 14:50 05/21/18 14:50 Labs: Abnormal lab results RBC 2.53 M/mcL (3.82-4.97) L 05/21/18 14:50 Hgb 7.2 g/dL (11.5-15.4) L 05/21/18 14:50 Hct 23.5 % (35.3-44.9) L 05/21/18 14:50 MCHC 30.6 g/dL (31.6-35.5) L 05/21/18 14:50 RDW 15.6 % (11.5-14.5) H 05/21/18 14:50 MPV 9.1 fL (9.4-12.4) L 05/21/18 14:50 BUN 26 mg/dL (8-23) H 05/21/18 14:50 Creatinine 1.41 mg/dL (0.60-1.20) H 05/21/18 14:50 Est GFR ( Amer) 43 (> 60) L 05/21/18 14:50 Est GFR (Non-Af Amer) 36 (> 60) L 05/21/18 14:50 Glucose 150 mg/dL (70-105) H 05/21/18 14:50 H & H 05/21/18 Range/Units 14:50 Hgb 7.2 L (11.5-15.4) g/dL Hct 23.5 L (35.3-44.9) % All other labs normal. Consult Discharge Plan - Plan Referrals: Anastacio Lovell MD [Primary Care Provider] -
[2018-05-21 18:06] LABS: Bilirubin,Urine Negative (Negative); Blood,Urine Negative (Negative); Clarity,Urine Clear (Clear); Color,Urine Yellow (Yellow); Glucose,Urine (UA) Normal (Normal); Ketones,Urine Negative (Negative); Leukocyte Esterase,Urine Negative (Negative); Nitrite,Urine Negative (Negative); Protein,Urine Negative (Neg-Trace); Specific Gravity,Urine 1.011 (1.010-1.025); Urobilinogen,Urine Normal (Normal)
[2018-05-21] MEDS ORDERED: Cefepime HCl 1,000 MG in Water for inj. (sterile) 20 ML 10 ML IVP SCH (18:35)
[2018-05-21] MEDS ORDERED: Ipratropium/Albuterol Neb 3 ML IH PRN (18:42)
--- NOTE | 2018-05-21 18:43 | Internal Medicine Consult Note ---
Date of Encounter: 05/21/18 Time of Encounter: 18:00 - Assessment and plan (1) Colonic cancer Current Visit: No Status: Chronic Assessment and plan: S/P surgery in 2007. Last CEA in 03/20/18 shows 3.2. 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 Renal dosing home med lyrica and gabapentin. Qualifiers: Acute renal failure type: unspecified Qualified Code(s): N17.9 - Acute kidney failure, unspecified (3) Hypertension Current Visit: No Status: Chronic Assessment and plan: Not on any home med now. BP is acceptable. Qualifiers: Hypertension type: essential hypertension Qualified Code(s): I10 - Essential (primary) hypertension (4) Hypothyroidism Current Visit: No Status: Chronic Assessment and plan: Cont home med Qualifiers: Hypothyroidism type: unspecified Qualified Code(s): E03.9 - Hypothyroidism , unspecified (5) Acute blood loss anemia Current Visit: No Status: Resolved Assessment and plan: Possibly due to recent surgery. Anemia workup. (6) COPD (chronic obstructive pulmonary disease) Current Visit: No Status: Chronic Assessment and plan: No signs of exacerbation. No wheezing. Cont home med sympcort and Duoneb PRN. Qualifiers: COPD type: unspecified COPD Qualified Code(s): J44.9 - Chronic obstructive pulmonary disease, unspecified (7) Preoperative clearance Current Visit: No Status: Acute Assessment and plan: Pt has no fever of increased cough. No Hx of CAD. EKG unremarkable. However, CXR shows possible developing infiltrate, HCAP cannot r/o. - Will order CT chest w/o contrast to confirm or r/o PNA - Empirically start cefepime and levaquin for HCAP, pt is already on vanco. - If CT chest confirmed PNA, may consider hold surgery unless orthopedics considering surgery is emergent. If surgery is emergent, consider pulmonology consult. 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 (8) DVT prophylaxis Current Visit: No Status: Acute Assessment and plan: EPCD now, will start AC after Sx. (9) Non-healing surgical wound Current Visit: No Status: Acute Assessment and plan: Per ortho Qualifiers: Encounter type: initial encounter Qualified Code(s): T81.89XA - Other complications of procedures, not elsewhere classified, initial encounter - Time Spent With Patient Total time spent is greater than 50% in coordination of care (as documented) at patient's floor/unit and/or counseling patient: 40 min Greater than 35 minutes Internal Medicine - CN: HPI - Data of Consult Patient: new to practice Consult date: 05/21/18 Requesting Physician: Roman Raymond MD - Consult Narrative Reason for consult: New infiltrate on CXR, preoperative evaluation History of present illness: Ms. Calero is a 82 year old female admitted by othorpedics for unhealed surgical wound for planned I/D surgery. PMH is significant for COPD, colon cancer s/p surgery in 2007, HTN. PSH includes hysterectomy, C section, cholecystectomy, appendectomy, colonectomy and knee replacement. Pt had CXR to confirm PICC position today and incidentally found possibly developing JENNY infiltrate. Pt has hx of COPD and has chronic SOB and cough, with whitish sputum, however, per pt, symptoms don't get worse. Pt denies fever or chills. She has no chest pain, nausea, or vomiting. Per lab, pt has low H/H, she denies melena. Pt denies cardiac hx. Past Med Surg Social Fam HX - Past Medical History Medical history: arthritis, cancer, COPD, GERD, hyperlipidemia, hypertension, TIA Additional medical history: colon CA, neuropathy Psychiatric history: anxiety, depression, panic disorder - Past Surgical History Surgical History: appendectomy, , cancer surgery, cholecystectomy, colectomy, hysterectomy, other Additional surgical history: Left Tibial Loosening with Total left knee replacement. - Social History Smoking Status: Never smoker Smokeless Tobacco Status: No Alcohol use: none Drug use: none - Family History Mother Adopted: No Family Member Ethnicity: Non- Living Status: Cause of : cancer Hx Family Cardiac Disorders: No Hx Family Respiratory Disorders: No Hx Family Cancer: Yes (breast, colon) Hx Family GI Disorders: No Hx Family Endocrine Disorder: No Hx Family Neuromuscular Disorders: No Hx Family Neurologic Disorders: No Hx Family HEENT Disorders: No Hx Family Autoimmune Disorders: No All systems: reviewed and no additional remarkable complaints except as stated Internal Medicine - CN: Meds Clopidogrel [Plavix] 75 mg PO DAILY 09/08/15 [History] Colesevelam HCl [Welchol] 1,875 mg PO BID 09/08/15 [History] Duloxetine HCl [Cymbalta] 60 mg PO DAILY 09/08/15 [History] Fenofibrate Nanocrystallized [Tricor] 48 mg PO DAILY 08/26/16 [History] Amitriptyline [Elavil] 50 mg PO HS 03/29/18 [History] Fluticasone/Salmeterol [Advair 250-50 Diskus] 1 puff IH BID 03/29/18 [History] Levothyroxine [Synthroid] 100 mcg PO DAILY 03/29/18 [History] Aspirin Enteric Coated [Aspirin EC] 325 mg PO BID 10 Days tablet. 04/05/18 [ Rx] Celecoxib [Celebrex] 200 mg PO DAILY 04/11/18 [History] Meloxicam [Mobic] 15 mg PO DAILY 04/11/18 [History] Pantoprazole Sodium [Pantoprazole Sodium] 40 mg PO DAILY 04/12/18 [History] Pregabalin [Lyrica] 200 mg PO BID 04/12/18 [History] Cholecalciferol (D-3) [Vitamin D] 2,000 unit PO DAILY 05/21/18 [History] Gabapentin [Neurontin] 600 mg PO TID 05/21/18 [History] 3 Allergy/AdvReac Type Severity Reaction Status Date / Time Diclofenac [From Arthrotec] Allergy See Verified 05/20/18 16:50 Comments misoprostol [From Arthrotec] Allergy See Verified 05/20/18 16:50 Comments Vssowqs-Mup-Upj Reductase Allergy See Verified 05/20/18 16:50 Inhibitor Comments morphine AdvReac Agitated Verified 05/20/18 16:50 Hospitalist - CN: Exam - Constitutional Vitals: Temp Pulse Resp BP Pulse Ox 99.1 F 94 18 126/70 93 05/21/18 16:41 05/21/18 16:41 05/21/18 16:41 05/21/18 16:41 05/21/18 16:41 General appearance IM: Present: A&O X 3, no acute distress, answers questions appropriately Exam: Pt is in NAD - Head Head exam: Present: atraumatic, normal inspection, normocephalic - Eye Eye exam: Present: EOMI, PERRL - Neck Neck exam general surgery: Present: full ROM, supple. Absent: lymphadenopathy - Respiratory Respiratory exam: Present: CTAB. Absent: accessory muscle use, rales, rhonchi, wheezes - Cardiovascular Cardiovascular exam IM: Present: RRR, +S1, +S2 - GI/Abdominal GI/Abdominal exam IM: Present: normal bowel sounds, soft. Absent: tenderness - Extremities Exam Extremities exam IM: Absent: pedal edema Additional comments: Left knee is in brace - Neurological Exam Neurological exam: Present: CN II-XII intact, oriented X3, no focal deficits - Psychiatric Psychiatric exam: Present: normal mood - Skin Skin exam IM: Present: dry, warm Internal Medicine - CN: Reslt - Labs CBC & Chem 7: 05/21/18 14:50 05/21/18 14:50 Labs: Short CBC 05/21/18 Range/Units 14:50 WBC 5.4 (4.3-11.1) K/mcL Hgb 7.2 L (11.5-15.4) g/dL Hct 23.5 L (35.3-44.9) % Plt Count 236 (140-400) K/mcL Neutrophils # 3.4 (1.6-8.9) K/mcL BMP 05/21/18 14:50 Sodium 139 Potassium 3.9 Chloride 106 Carbon Dioxide 27 BUN 26 H Creatinine 1.41 H Glucose 150 H Calcium 8.6 Urine 05/21/18 Range/Units 17:57 Urine Color Yellow (Yellow) Urine Clarity Clear (Clear) Urine pH 6.0 (5.0-8.0) pH Units Ur Specific [place] 1.011 (1.010-1.025) Urine Protein Negative (Neg-Trace) mg/dL Urine Glucose (UA) Normal (Normal) mg/dL - ABG Interpretation ABG results: PT/INR, D-dimer PT 12.0 Seconds (9.4-12.1) 05/21/18 14:50 - EKG Data -: EKG Interpreted by Myself EKG shows normal: sinus rhythm Rate: normal - Impressions Impressions Chest X-Ray 05/21/18 15:21 IMPRESSION: 1. Right PICC line with its distal tip in the SVC. 2. Left upper lobe opacity may represent a developing infiltrate. Mild bibasilar atelectasis. D/ / Danielle Hernández MD / Danielle Hernández MD Interpreting Provider: Danielle Hernández MD Consult Discharge Plan - Plan Referrals: Anastacio Lovell MD [Primary Care Provider] -
[2018-05-21] MEDS ORDERED: Levofloxacin 750 MG/150 ML 750 MG/150 ML BAG IVPB SCH (19:00)
[2018-05-21] MEDS ORDERED: 0.9 % Sodium Chloride 250 ML IVC SCH (19:00)
[2018-05-21] MEDS: Budesonide/Formoterol 80/4.5 MDI IH SCH (20:16)
[2018-05-21] MEDS: 0.9 % Sodium Chloride 1,000 ML IVC SCH (20:55)
[2018-05-21] MEDS ORDERED: Nystatin POWDER 30 GM BOTTLE TP SCH (21:00)
[2018-05-21] MEDS ORDERED: Pregabalin 50 MG CAPSULE PO SCH ×2 (21:00)
--- NOTE | 2018-05-21 21:25 | Orthopedic History & Physical ---
Date of Encounter: 05/21/18 Time of Encounter: 13:00 Assessment and Plan (1) Non-healing surgical wound Current visit: No Status: Acute 82F with recurrent dehiscence of her surgical wound/poor wound healing; Wound care evacuated hematoma and was able to appreciate the prosthetic visually; Discussed with Dr. Raymond who agree to see her in his clinic this morning; wet to dry dressings change daily or as needed for saturation. Plan for surgery with - consent reviewed with patient: Left knee I&D with wound closure. Will obtain hospitalist consult for surgical optimization and CXR findings. Hold Vancomycin due to acute on chronic kidney changes. Will obtain intra-operative cultures. Qualifiers: Encounter type: initial encounter Qualified Code(s): T81.89XA - Other complications of procedures, not elsewhere classified, initial encounter (2) Status post revision of total replacement of left knee Current visit: No Status: Acute (3) Acute on chronic kidney failure Current visit: Yes Status: Acute Qualifiers: Acute renal failure type: unspecified Chronic kidney disease stage: unspecified stage Qualified Code(s): N17.9 - Acute kidney failure, unspecified ; N18.9 - Chronic kidney disease, unspecified (4) COPD (chronic obstructive pulmonary disease) Current visit: Yes Status: Acute Qualifiers: COPD type: chronic bronchitis Chronic bronchitis type: unspecified Qualified Code(s): J42 - Unspecified chronic bronchitis (5) Decreased ambulation status Current visit: No Status: Acute (6) Tibial plateau fracture, left Current visit: No Status: Acute Qualifiers: Encounter type: subsequent encounter Fracture type: closed Fracture healing: with routine healing Qualified Code(s): S82.142D - Displaced bicondylar fracture of left tibia, subsequent encounter for closed fracture with routine healing (7) Chronic pain Current visit: No Status: Chronic Qualifiers: Chronic pain type: other chronic pain Qualified Code(s): G89.29 - Other chronic pain (8) Hypertension Current visit: No Status: Chronic Qualifiers: Hypertension type: essential hypertension Qualified Code(s): I10 - Essential (primary) hypertension (9) Morbid obesity with BMI of 40.0-44.9, adult Current visit: No Status: Chronic History of Present Illness Chief complaint: Left Knee Wound Dehiscence HPI: Ms. Calero is a 82 year old female, well known to orthopedic office, currently residing at [facility]. She reported to clinic today after seeing wound care and her knee was debrided. She is s/p Left revision tibial component. Date of surgery 04-11-18, with prior Left TKR due to a fracture. She was seen in ED on 05/06, with Left knee wound dehiscence, ED cleansed and performed loose tension suture. On exam on Sunday, suture had diminished. She had 2x3 area of dehiscence to distal incision. [place] were removed from wound, area cleansed, exposed suture trimmed. She has been followed in the office weekly for wound dehiscence and hematoma presence. Wound care consult obtained last week due to nonhealing wound. In the office today, Patient reports she was sitting on commode yesterday and felt knee opened again with bloody drainage. She was seen in the ED last night , and followed up with wound care today. Wound care debrided hematoma and felt hardware to be exposed. In office patient has large gapping wound along anterior knee and distal incision, with approx 2in of depth. No visible tendon noted. saw and evaluated this patient. No erythema, purulence on exam. Minimal tenderness noted along knee. No calf pain. Patient has been on Vancomycin since 04/29 due to early cellulitis and plan to continue x 4 weeks. Continue with knee immobilizer, no knee ROM. WBAT XR/XR chest 1V IMPRESSION: 1. Right PICC line with its distal tip in the SVC. 2. Left upper lobe opacity may represent a developing infiltrate. Mild bibasilar atelectasis. Past Med Surg Social Fam HX - Past Medical History Medical history: arthritis, cancer, COPD, GERD, hyperlipidemia, hypertension, TIA Additional medical history: colon CA, neuropathy Psychiatric history: anxiety, depression, panic disorder - Past Surgical History Surgical History: appendectomy, , cancer surgery, cholecystectomy, colectomy, hysterectomy, other Additional surgical history: Left Tibial Loosening with Total left knee replacement. - Social History Smoking Status: Never smoker Smokeless Tobacco Status: No Alcohol use: none Drug use: none - Family History Mother Adopted: No Family Member Ethnicity: Non- Living Status: Cause of : cancer Hx Family Cardiac Disorders: No Hx Family Respiratory Disorders: No Hx Family Cancer: Yes (breast, colon) Hx Family GI Disorders: No Hx Family Endocrine Disorder: No Hx Family Neuromuscular Disorders: No Hx Family Neurologic Disorders: No Hx Family HEENT Disorders: No Hx Family Autoimmune Disorders: No Medications and Allergies Clopidogrel [Plavix] 75 mg PO DAILY 09/08/15 [History] Colesevelam HCl [Welchol] 1,875 mg PO BID 09/08/15 [History] Duloxetine HCl [Cymbalta] 60 mg PO DAILY 09/08/15 [History] Fenofibrate Nanocrystallized [Tricor] 48 mg PO DAILY 08/26/16 [History] Amitriptyline [Elavil] 50 mg PO HS 03/29/18 [History] Fluticasone/Salmeterol [Advair 250-50 Diskus] 1 puff IH BID 03/29/18 [History] Levothyroxine [Synthroid] 100 mcg PO DAILY 03/29/18 [History] Aspirin Enteric Coated [Aspirin EC] 325 mg PO BID 10 Days tablet. 04/05/18 [ Rx] Celecoxib [Celebrex] 200 mg PO DAILY 04/11/18 [History] Meloxicam [Mobic] 15 mg PO DAILY 04/11/18 [History] Pantoprazole Sodium [Pantoprazole Sodium] 40 mg PO DAILY 04/12/18 [History] Pregabalin [Lyrica] 200 mg PO BID 04/12/18 [History] Cholecalciferol (D-3) [Vitamin D] 2,000 unit PO DAILY 05/21/18 [History] Gabapentin [Neurontin] 600 mg PO TID 05/21/18 [History] 3 Allergy/AdvReac Type Severity Reaction Status Date / Time Diclofenac [From Arthrotec] Allergy See Verified 05/20/18 16:50 Comments misoprostol [From Arthrotec] Allergy See Verified 05/20/18 16:50 Comments Mxqodag-Ypg-Iew Reductase Allergy See Verified 05/20/18 16:50 Inhibitor Comments morphine AdvReac Agitated Verified 05/20/18 16:50 All Systems Reviewed: The remainder of the systems were reviewed and are negative - Constitutional Constitutional: as per HPI, weakness, no fever(s), no frequent falls - Cardiovascular Cardiovascular: no chest pain, no syncope - Respiratory Respiratory: cough, no dyspnea on exertion, no wheezing - Musculoskeletal Musculoskeletal: as per HPI Physical Exam - Constitutional Vitals: Temp Pulse Resp BP Pulse Ox 98.1 F 105 16 159/74 90 05/21/18 19:10 05/21/18 19:10 05/21/18 20:16 05/21/18 19:10 05/21/18 20:16 General appearance IM: A&O X 3, no acute distress, answers questions appropriately Exam: Wound Location Body 2: Left, Distal Wound location Body Site 2: Knee Wound Type 2: Present: Surgical Wound, Full Thickness Wound Bed Appearance 2: Present: Beach, Pale, Slough, Eschar, Necrotic Percent of Wound Bed Eschar/Black 2: 90 Percent of Wound Bed Fibrin/Yellow 2: 5 Percent of Wound Bed Slough/Yellow 2: 5 Wound Surrounding Tissue Appearance (Periwound) 2: Present: Erythematous Surrounding Tissue Temperature 2: Warm Wound Drainage Amount 2: Large Wound Drainage Description 2: Present: Serosanguineous Wound Drainage Odor 2: No Odor Wound Length 2: 6 Wound Width 2: 3.5 Wound Square Centimeters 2: 21.00 SCM Text 2: Unable to determine full depth due to necrosis. Two sutures visualized in wound bed at this time. Results - Labs Result Diagrams: 05/21/18 14:50 05/21/18 14:50 Labs: Abnormal lab results RBC 2.53 M/mcL (3.82-4.97) L 05/21/18 14:50 Hgb 7.2 g/dL (11.5-15.4) L 05/21/18 14:50 Hct 23.5 % (35.3-44.9) L 05/21/18 14:50 MCHC 30.6 g/dL (31.6-35.5) L 05/21/18 14:50 RDW 15.6 % (11.5-14.5) H 05/21/18 14:50 MPV 9.1 fL (9.4-12.4) L 05/21/18 14:50 BUN 26 mg/dL (8-23) H 05/21/18 14:50 Creatinine 1.41 mg/dL (0.60-1.20) H 05/21/18 14:50 Est GFR ( Amer) 43 (> 60) L 05/21/18 14:50 Est GFR (Non-Af Amer) 36 (> 60) L 05/21/18 14:50 Glucose 150 mg/dL (70-105) H 05/21/18 14:50 H & H 05/21/18 Range/Units 14:50 Hgb 7.2 L (11.5-15.4) g/dL Hct 23.5 L (35.3-44.9) % All other labs normal.
[2018-05-22] MEDS ORDERED: 0.9 % Sodium Chloride 250 ML ONE (00:42)
[2018-05-22 01:25] LABS: Basophils % 0.5 %; Eosinophils # 0.1 K/mcL (0.0-0.6); Eosinophils % 1.4 %; Hematocrit 24.3 % (35.3-44.9); Hemoglobin 7.5 g/dL (11.5-15.4); Immature Granulocytes % 0.5 % (0-4); Lymphocytes # 1.5 K/mcL (0.6-4.6); Lymphocytes % 25.9 %; Mean Corpuscular HGB Conc 30.9 g/dL (31.6-35.5); Mean Corpuscular Hemoglobin 28.4 pg (28.0-33.3); Mean Platelet Volume 9.5 fL (9.4-12.4); Monocytes # 0.4 K/mcL (0.0-1.3); Monocytes % 5.9 %; Neutrophils # 3.9 K/mcL (1.6-8.9); Platelet Count 263 K/mcL (140-400); Red Blood Count 2.64 M/mcL (3.82-4.97); Red Cell Distribution Width 15.9 % (11.5-14.5); Segmented Neutrophils % 65.8 %
[2018-05-22 01:29] LABS: INR 1.2; Prothrombin Time 13.3 Seconds (9.4-12.1)
[2018-05-22 01:43] LABS: Calcium 8.5 mg/dL (8.6-10.3); Potassium 4.3 mEq/L (3.5-5.1)
[2018-05-22 02:07] LABS: Folate 9.9 ng/mL (3.0-16.0)
[2018-05-22 05:37] LABS: Hematocrit 26.3 % (35.3-44.9); Hemoglobin 8.1 g/dL (11.5-15.4)
[2018-05-22] MEDS ORDERED: Furosemide 20 MG/2 ML VIAL IVP ONE ×2 (06:46→15:13)
--- NOTE | 2018-05-22 06:54 | Orthopedics Progress Note ---
Date of Encounter: 05/22/18 Time of Encounter: 06:54 Subjective Interval history: Patient seen this morning reviewed and surgery QUESTIONS answered to have a better understanding after the procedure. Objective Vital signs: Vital Signs Temp Pulse Resp BP Pulse Ox 05/22/18 06:47 98.8 F 88 16 133/84 95 05/22/18 04:41 98.7 F 108 19 126/79 90 05/22/18 03:51 98.9 F 108 14 146/80 94 05/22/18 01:28 99.0 F 110 16 130/69 92 05/22/18 01:13 98.9 F 110 16 132/74 95 05/21/18 22:54 99.2 F 99 18 165/66 90 05/21/18 20:16 16 90 05/21/18 19:10 98.1 F 105 20 159/74 91 05/21/18 16:41 99.1 F 94 18 126/70 93 05/21/18 12:19 98.6 F 81 18 131/75 93 Intake and Output 05/21/18 05/21/18 05/22/18 15:59 23:59 07:59 Intake Total 350 / 350 Output Total 200 / 200 300 / 300 Balance -200 / -200 -300 / -300 350 / 350 Intake: Blood Product 350 / 350 Rbcs Leuko Poor As-1 Unit 350 / 350 [id number] Output: Urine 200 / 200 300 / 300 Other: Stool Size Small Stool Consistency formed Stool Characteristics Normal for Patient Stool Color Dru Colored # Voids 1 # Bowel Movement Diapers 1 Weight 103.7 kg 104.9 kg Patient Weight 05/22/18 23:59 Weight 104.9 kg - Labs CBC & BMP: 05/22/18 05:26 05/22/18 00:52 Labs: Abnormal lab results RBC 2.64 M/mcL (3.82-4.97) L 05/22/18 00:52 Hgb 8.1 g/dL (11.5-15.4) L 05/22/18 05:26 Hct 26.3 % (35.3-44.9) L 05/22/18 05:26 MCHC 30.9 g/dL (31.6-35.5) L 05/22/18 00:52 RDW 15.9 % (11.5-14.5) H 05/22/18 00:52 PT 13.3 Seconds (9.4-12.1) H 05/22/18 00:52 BUN 30 mg/dL (8-23) H 05/22/18 00:52 Creatinine 1.43 mg/dL (0.60-1.20) H 05/22/18 00:52 Est GFR ( Amer) 43 (> 60) L 05/22/18 00:52 Est GFR (Non-Af Amer) 35 (> 60) L 05/22/18 00:52 Glucose 111 mg/dL (70-105) H 05/22/18 00:52 Calcium 8.5 mg/dL (8.6-10.3) L 05/22/18 00:52 Iron 20 mcg/dL (50-170) L 05/22/18 00:52 % Saturation 6 % (15-50) L 05/22/18 00:52 Consult Discharge Plan - Plan Referrals: Anastacio Lovell MD [Primary Care Provider] -
[2018-05-22] MEDS ORDERED: 0.9 % Sodium Chloride 250 ML IVC SCH (07:00)
--- NOTE | 2018-05-22 07:19 | Internal Med Progress Note ---
Hospitalist Progress Note - Encounter Date of Encounter: 05/22/18 Time of Encounter: 07:00 - Subjective Interval History: Pt laying on bed comfortably. Denies fever, stable mild cough. Lab reviewed, no leukocytosis, renal funcuntion is about the same with yesterday, cr 1.4. - Exam Vitals: Temp Pulse Resp BP Pulse Ox 98.8 F 88 16 133/84 95 05/22/18 06:47 05/22/18 06:47 05/22/18 06:47 05/22/18 06:47 05/22/18 06:47 Exam: Pt is in NAD HEENT: NC/AT PERRL Neck: Supple, no LAD Lungs: CTA b/l Heart: S1S2, RRR Abd: Soft, NT Ext: No pedal edema, left knee in brace Neuro: AAO x 3, no focal deficit - Assessment and Plan (1) Colonic cancer Current Visit: No Status: Chronic Assessment and Plan: S/P surgery in 2007. Last CEA in 03/20/18 shows 3.2. (2) Acute renal failure Current Visit: No Status: Acute Assessment and Plan: Mild elevated Cr level than baseline, cont IVF. Avoid hypovolumic or dehydration perioperatively. (3) Hypertension Current Visit: No Status: Chronic Assessment and Plan: Not on any home med now. BP is acceptable. (4) Hypothyroidism Current Visit: No Status: Chronic Assessment and Plan: Cont home med (5) Acute blood loss anemia Current Visit: No Status: Resolved Assessment and Plan: Had one unit of PRBC. Anemia work up shows iron deficiency, plz start iron pills upon discharge. (6) COPD (chronic obstructive pulmonary disease) Current Visit: No Status: Chronic Assessment and Plan: No signs of exacerbation. No wheezing. Cont home med sympcort and Duoneb PRN. (7) Preoperative clearance Current Visit: No Status: Acute Assessment and Plan: Pt has no fever of increased cough. No Hx of CAD. EKG unremarkable. - CT chest ruled out pneumonia, cefepime and levaquin discontinued. - Pt has stable COPD and mild elevated Cr, has low to moderate but acceptable risk for this I/D surgery, cont closely monitoring pt perioperatively. (8) DVT prophylaxis Current Visit: No Status: Acute Assessment and Plan: EPCD now, will start AC after Sx. (9) Non-healing surgical wound Current Visit: No Status: Acute Assessment and Plan: Per ortho - Time Spent with Patient Total time spent is greater than 50% in coordination of care (as documented) at patient's floor/unit and/or counseling patient: 30 min 25 - 35 minutes Plan of Care Discussed with: patient Internal Medicine: Result - Labs CBC & Chem 7: 05/22/18 05:26 05/22/18 00:52 Labs: Short CBC 05/21/18 05/22/18 05/22/18 Range/Units 14:50 00:52 05:26 WBC 5.4 5.9 (4.3-11.1) K/mcL Hgb 7.2 L 7.5 L 8.1 L (11.5-15.4) g/dL Hct 23.5 L 24.3 L 26.3 L (35.3-44.9) % Plt Count 236 263 (140-400) K/mcL Neutrophils # 3.4 3.9 (1.6-8.9) K/mcL BMP 05/21/18 05/22/18 14:50 00:52 Sodium 139 139 Potassium 3.9 4.3 Chloride 106 107 Carbon Dioxide 27 24 BUN 26 H 30 H Creatinine 1.41 H 1.43 H Glucose 150 H 111 H Calcium 8.6 8.5 L Urine 05/21/18 Range/Units 17:57 Urine Color Yellow (Yellow) Urine Clarity Clear (Clear) Urine pH 6.0 (5.0-8.0) pH Units Ur Specific [place] 1.011 (1.010-1.025) Urine Protein Negative (Neg-Trace) mg/dL Urine Glucose (UA) Normal (Normal) mg/dL - ABG Interpretation ABG results: PT/INR, D-dimer PT 13.3 Seconds (9.4-12.1) H 05/22/18 00:52 - Impressions Impressions Chest X-Ray 05/21/18 15:21 IMPRESSION: 1. Right PICC line with its distal tip in the SVC. 2. Left upper lobe opacity may represent a developing infiltrate. Mild bibasilar atelectasis. D/ / Danielle Hernández MD / Danielle Hernández MD Interpreting Provider: Danielle Hernández MD Chest CT 05/21/18 18:32 IMPRESSION: No acute abnormality in the chest. No consolidation or other acute process. 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 (2) Acute renal failure Qualifiers: Acute renal failure type: unspecified Qualified Code(s): N17.9 - Acute kidney failure, unspecified (3) Hypertension Qualifiers: Hypertension type: essential hypertension Qualified Code(s): I10 - Essential (primary) hypertension (4) Hypothyroidism Qualifiers: Hypothyroidism type: unspecified Qualified Code(s): E03.9 - Hypothyroidism, unspecified (6) COPD (chronic obstructive pulmonary disease) Qualifiers: COPD type: unspecified COPD Qualified Code(s): J44.9 - Chronic obstructive pulmonary disease, unspecified (9) Non-healing surgical wound Qualifiers: Encounter type: initial encounter Qualified Code(s): T81.89XA - Other complications of procedures, not elsewhere classified, initial encounter
--- NOTE | 2018-05-22 08:57 | Anesthesia Evaluation PreOp ---
Date of Encounter: 05/22/18 Time of Encounter: 08:54 - Past History Planned Operation: Left Leg I & D, Wound Closure Cardiac History: HTN, Hyperlipidemia Pulmonary History: COPD U.[employer]. REPRESENTATIVE History: TIA Other Medical History: Renal (acute renal failure), Thyroid, GERD, Other ( anxiety/depression, RLS, colon CA S/P colon resection S/P chemo) Anesthesia History: No Prior Anesthetic Complications, Past Anesthesia Alcohol Use: none Drug use: none Medications and Allergies Clopidogrel [Plavix] 75 mg PO DAILY 09/08/15 [History] Colesevelam HCl [Welchol] 1,875 mg PO BID 09/08/15 [History] Duloxetine HCl [Cymbalta] 60 mg PO DAILY 09/08/15 [History] Fenofibrate Nanocrystallized [Tricor] 48 mg PO DAILY 08/26/16 [History] Amitriptyline [Elavil] 50 mg PO HS 03/29/18 [History] Fluticasone/Salmeterol [Advair 250-50 Diskus] 1 puff IH BID 03/29/18 [History] Levothyroxine [Synthroid] 100 mcg PO DAILY 03/29/18 [History] Aspirin Enteric Coated [Aspirin EC] 325 mg PO BID 10 Days tablet. 04/05/18 [ Rx] Celecoxib [Celebrex] 200 mg PO DAILY 04/11/18 [History] Meloxicam [Mobic] 15 mg PO DAILY 04/11/18 [History] Pantoprazole Sodium [Pantoprazole Sodium] 40 mg PO DAILY 04/12/18 [History] Pregabalin [Lyrica] 200 mg PO BID 04/12/18 [History] Cholecalciferol (D-3) [Vitamin D] 2,000 unit PO DAILY 05/21/18 [History] Gabapentin [Neurontin] 600 mg PO TID 05/21/18 [History] OxyCODONE Immed Rel [Roxicodone 5 MG] 5 mg PO Q6HR PRN 7 Days #28 tablet [Rx] 3 Allergy/AdvReac Type Severity Reaction Status Date / Time Diclofenac [From Arthrotec] Allergy See Verified 05/20/18 16:50 Comments misoprostol [From Arthrotec] Allergy See Verified 05/20/18 16:50 Comments Xnoxqke-Rhh-Drs Reductase Allergy See Verified 05/20/18 16:50 Inhibitor Comments morphine AdvReac Agitated Verified 05/20/18 16:50 - Meds/Allergy Pre-op Review Medications Reviewed: Yes Allergies Reviewed: Yes Beta Blockers on Current Med List: No Anesthesia Results - Labs 05/22/18 05:26 05/22/18 00:52 - Imaging EKG: report reviewed (04/10/2018 SINUS RHYTHM WITH OCCASIONAL SUPRAVENTRICULAR PREMATURE COMPLEXES MARKED LEFT AXIS DEVIATION) Anesthesia Exam Vital Signs/O2 Sat, Most Current Temp Pulse Resp BP Pulse Ox 98.8 F 88 16 133/84 95 05/22/18 06:47 05/22/18 06:47 05/22/18 06:47 05/22/18 06:47 05/22/18 06:47 Height: 5'3''/1.6m Weight: 231 lbs/105 kg NPO (# of Hours): 8 Pain Scale: 0 Pain Scale Used: Numeric (1 - 10) - HEENT Pupil (Motor): EOMI Mallampati: III Teeth: Edentulous Oral Opening: Greater than 3 - U.[employer]. REPRESENTATIVE LOC: Oriented [employer] REPRESENTATIVE Motor: Normal RUE, Normal LUE, Normal RLE, Normal LLE, Normal Face [employer] REPRESENTATIVE Sensory: Normal: RUE, LUE, RLE, LLE, Face - Cardiac Rhythm: Regular Murmur: None - Pulmonary Breath Sounds: bilateral Clear Respiratory Effort: Symmetrical Anesthesia Assess/Plan ASA Score: 3 Modified Donaldo Scale for Level of Consciousness: Cooperative, oriented, and tranquil Anesthetic Plan: General Monitoring Plan: Standard Monitors Recovery Plan: PACU
[2018-05-22] MEDS ORDERED: Fenofibrate 54 MG TABLET PO SCH (09:00)
[2018-05-22] MEDS ORDERED: Cholecalciferol (D-3) 1,000 UNIT TABLET PO SCH (09:00)
[2018-05-22] MEDS ORDERED: *HR* FentaNYL (PF) 100 MCG/2 ML VIAL ONE ×2 (09:20→11:11)
[2018-05-22] MEDS ORDERED: Lidocaine -MPF 2% 2 ML VIAL ONE (09:20)
[2018-05-22] MEDS ORDERED: Dexamethasone 4 MG/ML VIAL ONE (09:20)
[2018-05-22] MEDS ORDERED: Ondansetron 4 MG/2 ML VIAL ONE (09:20)
[2018-05-22] MEDS ORDERED: *HR* Propofol 200 MG/20 ML VIAL IVP ONE (09:21)
[2018-05-22] MEDS ORDERED: Albuterol 2.5 MG/3 ML NEBULIZER IH ONE (09:55)
[2018-05-22] MEDS ORDERED: Albuterol 2.5 MG/3 ML NEBULIZER ONE (09:58)
[2018-05-22] MEDS ORDERED: Ethanol\\Acetic Acid\\Na Ace\\Ben 1,000 ML IRRIG.SOLN IR ONE ×2 (10:16→10:31)
[2018-05-22] MEDS: Budesonide/Formoterol 80/4.5 MDI IH SCH ×2 (10:33→20:04)
[2018-05-22] MEDS ORDERED: *HR* PHENYLEPHRINE 1,000 MCG/10 ML SYRINGE IVP ONE ×2 (11:24→11:45)
[2018-05-22] MEDS ORDERED: EPHEDrine 50 MG/ML VIAL ONE (11:31)
[2018-05-22] MEDS ORDERED: *HR* HYDROmorphone 2 MG/ML SYRINGE ONE (11:36)
[2018-05-22] MEDS ORDERED: *HR* OxyCODONE Immed Rel 5 MG TABLET PO PRN (11:58)
[2018-05-22] MEDS ORDERED: Ondansetron 4 MG/2 ML VIAL IVP ONE (11:58)
[2018-05-22] MEDS ORDERED: *HR* HYDROmorphone (PF) 1 MG/ML SYRINGE IVP PRN (11:58)
[2018-05-22] MEDS ORDERED: 0.9 % Sodium Chloride 500 ML IVC SCH (12:00)
[2018-05-22] MEDS ORDERED: SUGAMMADEX SODIUM 500 MG/5 ML VIAL IV ONE (12:04)
--- NOTE | 2018-05-22 12:14 | Orthopedic Operative Note ---
Date of procedure: 05/22/18 Pre-op diagnosis: Wound dehiscence left knee Post-op diagnosis: same (Extensor mechanism disruption,) Procedure: Procedure: Open left knee irrigation and debridement, patellectomy, patellar tendon repair, poly-exchange wound closure Findings: Patient with a 4 x 2 cm open wound presented yesterday to the office with a complete change, previously the patient was seen with a superficial wound dehiscence. Patient indicated for admission and surgical management. Findings during surgery complete wound dehiscence with patellar tendon rupture and exposure of implant deep. Based on the tenuous nature of the soft tissue decision was made to do a patellectomy, due to the open nature the wound decision was made to do a poly-exchange and to decrease the thickness of the Noemi from 16-11 to help gain more hyperextension and relieve pressure on the soft tissue. Estimated blood loss: 500 mL Hardware: Sonal TS 11 mm constrained Noemi Procedure dictation: Patient brought to the operating placed on the operating table after general anesthesia was administered patient was noted to have a large open wound distal to the patella approximately 4 x 2 cm. After left lower extremity was prepped and draped in the sterile surgical fashion and the patient received IV antibiotics prior to skin incision. The wound was evaluated the open wound communicated all the way to the knee joint with complete disruption of the extensor mechanism. An elliptical incision was made for the entire incision. Incision made through skin and subcutaneous tissue, hemostasis was obtained with Bovie cautery. No purulent material was identified just fibrinous material. A medial parapatellar tendon approach was performed. In order to gain length for the extensor mechanism repair a Patellectomy was performed. This was done subperiosteally to maintain the extensor mechanism. Attention was then turned to removal of the Noemi. The knee was then irrigated with 1 L of antibacterial solution. It was then irrigated out with 3 L of pulse irrigation. It then sat for 1 minute with antibacterial solution was irrigated out again with pulse irrigation. The new 11 mm Noemi was seated and secured. The knee was brought into extension. At this point time the decision was made to repair the extensor mechanism. This was done with [id number] #2 FiberWire sutures. This gave a secure fixation. This was done over a KAYY drain. The medial parapatellar tendon approach was then closed with a running # 2 PDS suture. He continues tissue was irrigated and closed with #1 PDS suture. The skin was closed with skin paul and zip tie. Patient was placed in a sterile dressing and a postoperative cast to protect the soft tissues. Extubated and transferred to recovery room in stable condition. Anesthesia: GETA Surgeon: Roman Raymond Was there an assistant casino shift manager present: Yes Bad Cloth Checker: Yanci Kaiser Estimated blood loss (cc): 500 Condition: stable Disposition: PACU
[2018-05-22 14:19] LABS: Hematocrit 26.8 % (35.3-44.9); Hemoglobin 8.3 g/dL (11.5-15.4)
[2018-05-22] MEDS ORDERED: Ipratropium/Albuterol Neb 3 ML IH PRN (15:13)
[2018-05-22] MEDS ORDERED: Temazepam 15 MG CAPSULE PO PRN (15:13)
[2018-05-22] MEDS ORDERED: Sennosides 8.6 MG TABLET PO PRN (15:13)
[2018-05-22] MEDS ORDERED: Acetaminophen 325 MG TABLET PO PRN (15:13)
[2018-05-22] MEDS ORDERED: MOM Conc 10 ML UD.LIQ PO PRN (15:13)
[2018-05-22] MEDS ORDERED: Ondansetron 4 MG/2 ML VIAL IVP PRN (15:13)
[2018-05-22] MEDS ORDERED: Naloxone 0.4 MG/ML INJ IVP PRN ×2 (15:13)
--- NOTE | 2018-05-22 15:17 | Anesthesia Evaluation Post Op ---
Date of Encounter: 05/22/18 Time of Encounter: 15:05 - Vital Signs Vital Signs: Vital Signs/O2 Sat, Most Current Temp Pulse Resp BP Pulse Ox 98.1 F 101 12 95/53 95 05/22/18 14:58 05/22/18 14:58 05/22/18 14:58 05/22/18 14:58 05/22/18 14:58 - Lungs Lungs: Clear Ascult./Percussion - Airway Airway: Non-obstructed (CPAP) - Cardiovascular Regular Rate - Mental Status Mental Status: Asleep with brisk response to light stimulation - Nausea Vomiting Nausea Vomiting: Not Present - Hydration Hydration: NPO, Has not voided - Discharge PostOp Status: Transfer Patient to floor
[2018-05-22] MEDS ORDERED: Ringers Solution, Lactated 1,000 ML ONE (15:19)
[2018-05-22] MEDS: Ringers Solution, Lactated 1,000 ML IVC SCH (15:52)
--- NOTE | 2018-05-22 18:01 | Electrocardiograph Report ---
[place] [id number] Test Date: 2018-05-21 Pat Name: Maye Calero Department: 114 Room: [facility] Gender: F Bar Catcher: : [id number] Requested By: Yanci Kaiser Order Number: [id number] Reading MD: Otis Santiago Measurements Intervals [place] Rate: 80 P: -31 [place]: 156 QRS: -36 QRSD: 92 T: 55 QT: 372 QTc: 408 Interpretive Statements SINUS RHYTHM WITH SINUS ARRHYTHMIA MARKED LEFT AXIS DEVIATION VOLTAGE CRITERIA FOR LVH Electronically Signed On 05-22-2018 17:59:31 EDT by Otis Santiago
--- NOTE | 2018-05-22 18:57 | Anesthesia Progress Note ---
Date of Encounter: 05/22/18 Time of Encounter: 16:45 Anesthesia Note - Note Note: 05/22/18 18:[address] gutierrez, responds to voice and follow commands but remains drowsy. CPAP at 14/8 RR: 14. spo2: 100% HR: 88. SBP 113. BP has improved since earlier. Patient is stable. appears comfortable. will continue to monitor if needed.
[2018-05-22] MEDS: Gabapentin 300 MG CAPSULE PO SCH (21:08)
[2018-05-22] MEDS: Nystatin POWDER 30 GM BOTTLE TP SCH (21:14)
[2018-05-23] MEDS: traMADol 50 MG TABLET PO PRN ×2 (03:41→10:45)
[2018-05-23] MEDS: Ringers Solution, Lactated 1,000 ML IVC SCH (03:41)
[2018-05-23 04:06] LABS: Hematocrit 22.3 % (35.3-44.9); Hemoglobin 6.9 g/dL (11.5-15.4)
[2018-05-23 04:28] LABS: Potassium 4.8 mEq/L (3.5-5.1)
[2018-05-23] MEDS: *HR* OxyCODONE Immed Rel 5 MG TABLET PO PRN ×2 (05:42→22:18)
[2018-05-23] MEDS ORDERED: Furosemide 20 MG/2 ML VIAL IVP ONE (06:21)
--- NOTE | 2018-05-23 07:58 | Orthopedics Progress Note ---
Date of Encounter: 05/23/18 Time of Encounter: 07:57 Subjective Interval history: PatPatient was seen this morning doing well without complaints. Afebrile vital signs stable. Operative extremity: Neurovascularly intact Cast intact Assessment and plan: Continue with postoperative care Transfuse 2 units Objective Vital signs: Vital Signs Temp Pulse Resp BP Pulse Ox 05/23/18 07:12 98.4 F 103 18 100/55 94 05/23/18 01:30 98.8 F 96 16 117/72 94 05/22/18 20:33 97.8 F 91 14 123/73 97 05/22/18 20:27 12 98 05/22/18 17:01 97.6 F 88 8 96/61 99 05/22/18 16:41 97.5 F L 84 14 97/61 99 05/22/18 15:48 97.7 F 99 8 98/62 99 05/22/18 15:37 99 05/22/18 15:35 97.6 F 87 10 82/49 99 05/22/18 15:26 97.7 F 104 10 67/39 99 05/22/18 15:17 97.7 F 102 8 69/41 96 05/22/18 14:58 98.1 F 101 12 95/53 95 05/22/18 14:48 103 12 90/57 96 05/22/18 14:38 98.1 F 101 12 87/52 96 05/22/18 14:28 103 12 97/57 96 05/22/18 14:18 100 12 92/53 98 05/22/18 14:08 98.1 F 101 12 87/57 96 05/22/18 13:58 102 12 85/59 97 05/22/18 13:48 100 12 83/58 97 05/22/18 13:38 97.8 F 104 12 80/56 96 05/22/18 13:28 99 12 77/54 98 05/22/18 13:18 98 12 76/52 98 05/22/18 13:08 97.0 F L 88 10 74/39 98 05/22/18 12:58 102 10 81/47 98 05/22/18 12:48 100 10 81/48 98 05/22/18 12:45 13 91/55 96 05/22/18 12:38 97.2 F L 83 11 91/55 100 05/22/18 09:40 97.5 F L 87 18 135/68 96 05/22/18 09:15 98.4 F 85 18 143/71 96 Intake and Output 05/22/18 05/22/18 05/23/18 15:59 23:59 07:59 Intake Total 0 / 0 100 / 100 1100 / 1100 Output Total 500 / 500 20 20 Balance -500 / -500 100 / 100 1080 / 1080 Intake: IV Fluids 100 / 100 1100 / 1100 Lactated Ringers 1,000 ML @ 75 1000 / 1000 mls/hr IVC .[id number] ANDREA Rx#: [id number] Ancef 2,000 MG In 0.9 % Sodium 100 / 100 100 / 100 Chloride 100 ML @ 200 mls/hr IVPB Q8HR ANDREA Rx#:[id number] Blood Product 0 / 0 Rbcs Leuko Poor As-1 Unit 0 / 0 [id number] Output: Estimated Blood Loss 500 / 500 Wound Drainage Left Knee Other: # Urine Diapers 1 1 1 - Labs CBC & BMP: 05/23/18 03:50 05/23/18 03:50 Labs: Abnormal lab results RBC 2.64 M/mcL (3.82-4.97) L 05/22/18 00:52 Hgb 6.9 g/dL (11.5-15.4) L 05/23/18 03:50 Hct 22.3 % (35.3-44.9) L 05/23/18 03:50 MCHC 30.9 g/dL (31.6-35.5) L 05/22/18 00:52 RDW 15.9 % (11.5-14.5) H 05/22/18 00:52 PT 13.3 Seconds (9.4-12.1) H 05/22/18 00:52 Chloride 108 mEq/L (98-107) H 05/23/18 03:50 BUN 34 mg/dL (8-23) H 05/23/18 03:50 Creatinine 2.00 mg/dL (0.60-1.20) H 05/23/18 03:50 Est GFR ( Amer) 29 (> 60) L 05/23/18 03:50 Est GFR (Non-Af Amer) 24 (> 60) L 05/23/18 03:50 Glucose 125 mg/dL (70-105) H 05/23/18 03:50 Calcium 8.0 mg/dL (8.6-10.3) L 05/23/18 03:50 Iron 20 mcg/dL (50-170) L 05/22/18 00:52 % Saturation 6 % (15-50) L 05/22/18 00:52 Consult Discharge Plan - Plan Referrals: Anastacio Lovell MD [Primary Care Provider] - Prescriptions: OxyCODONE Immed Rel [Roxicodone 5 MG] 5 mg PO Q6HR PRN 7 Days #28 tablet PRN Reason: Severe Pain
[2018-05-23] MEDS: Budesonide/Formoterol 80/4.5 MDI IH SCH ×2 (08:08→20:04)
[2018-05-23] MEDS: Gabapentin 300 MG CAPSULE PO SCH ×3 (08:39→22:18)
[2018-05-23] MEDS: Cholecalciferol (D-3) 1,000 UNIT TABLET PO SCH (08:39)
[2018-05-23] MEDS: Fenofibrate 54 MG TABLET PO SCH (08:39)
[2018-05-23] MEDS: Clindamycin 900 MG/50 ML 900 MG/50 ML IV.SOLN IVPB SCH ×2 (08:40→15:15)
[2018-05-23] MEDS: Nystatin POWDER 30 GM BOTTLE TP SCH ×2 (08:40→22:26)
--- NOTE | 2018-05-23 11:18 | Discharge Summary ---
<Roman Raymond - Last Filed: 05/26/18 05:58> Orders not resulted at time of discharge: Pending orders 05/21/18 21:37 Red Blood Cells [BBK] Stat Type and Screen [BBK] Stat 05/22/18 11:45 Culture,Anaerobic [RM] Routine Culture,Wound [RM] Routine 05/22/18 11:55 Surgical Pathology [PTH] Routine 05/24/18 04:00 Basic Metabolic Panel AM 0400 Hemoglobin and Hematocrit [HEME] AM 0400 Date of Encounter: 05/26/18 Time of Encounter: 05:58 - Discharge Diagnosis (1) Acute on chronic kidney failure Priority: Secondary Status: Chronic Qualifiers: Acute renal failure type: unspecified Chronic kidney disease stage: stage 2 (mild) Qualified Code(s): N17.9 - Acute kidney failure, unspecified; N18.2 - Chronic kidney disease, stage 2 (mild) (2) COPD (chronic obstructive pulmonary disease) Priority: Secondary Status: Chronic Qualifiers: COPD type: chronic bronchitis Chronic bronchitis type: unspecified Qualified Code(s): J42 - Unspecified chronic bronchitis (3) Non-healing surgical wound Priority: Primary Status: Acute Qualifiers: Encounter type: subsequent encounter Qualified Code(s): T81.89XD - Other complications of procedures, not elsewhere classified, subsequent encounter (4) Anxiety Priority: Secondary Status: Chronic (5) 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 Calero is a 82 year old female Status post extensor mechanism repair, wound irrigation debridement wound closure, poly-exchange. Patient with significant postoperative anemia requiring multiple units of transfusion. Otherwise patient without issues, patient had a cast left be weightbearing as tolerated cultures negative from this surgery will continue on IV antibiotics to wound is healed clindamycin will be chosen based on previous antibiotics sensitivity. - Time Spent with Patient Total time spent providing and/or coordinating discharge services: - Discharge Medications Prescriptions: OxyCODONE Immed Rel [Roxicodone 5 MG] 5 mg PO Q6HR PRN 7 Days #28 tablet PRN Reason: Severe Pain Clindamycin 900 MG/50 ML [Cleocin Premix 900 MG/50 ML] 900 mg IV Q8H 28 Days #1 bag Home Medications: Clopidogrel [Plavix] 75 mg PO DAILY 09/08/15 [History] Colesevelam HCl [Welchol] 1,875 mg PO BID 09/08/15 [History] Duloxetine HCl [Cymbalta] 60 mg PO DAILY 09/08/15 [History] Fenofibrate Nanocrystallized [Tricor] 48 mg PO DAILY 08/26/16 [History] Amitriptyline [Elavil] 50 mg PO HS 03/29/18 [History] Fluticasone/Salmeterol [Advair 250-50 Diskus] 1 puff IH BID 03/29/18 [History] Levothyroxine [Synthroid] 100 mcg PO DAILY 03/29/18 [History] Aspirin Enteric Coated [Aspirin EC] 325 mg PO BID 10 Days tablet. 04/05/18 [ Rx] Pantoprazole Sodium 40 mg PO DAILY 04/12/18 [History] Pregabalin [Lyrica] 200 mg PO BID 04/12/18 [History] Cholecalciferol (D-3) [Vitamin D] 2,000 unit PO DAILY 05/21/18 [History] Gabapentin [Neurontin] 600 mg PO TID 05/21/18 [History] OxyCODONE Immed Rel [Roxicodone 5 MG] 5 mg PO Q6HR PRN 7 Days #28 tablet [Rx] Clindamycin 900 MG/50 ML [Cleocin Premix 900 MG/50 ML] 900 mg IV Q8H 28 Days #1 bag 05/27/18 [Rx] Docusate [Colace] 100 mg PO BID capsule 05/27/18 [Rx] Ferrous Sulfate 325 mg PO BIDWM tablet 05/27/18 [Rx] Ipratropium/Albuterol Neb [Duoneb] 3 ml IH [id number] PRN inhsol 05/27/18 [Rx] Ondansetron [Zofran] 4 mg IVP Q6HR PRN vial 05/27/18 [Rx] Allergies/Adverse Reactions: 3 Allergy/AdvReac Type Severity Reaction Status Date / Time Diclofenac [From Arthrotec] Allergy See Verified 05/20/18 16:50 Comments misoprostol [From Arthrotec] Allergy See Verified 05/20/18 16:50 Comments Xtuglul-Grb-Yjp Reductase Allergy See Verified 05/20/18 16:50 Inhibitor Comments morphine AdvReac Agitated Verified 05/20/18 16:50 Date of admission: 05/21/18 12:02 Primary care physician: Anastacio Lovell MD Consults: 05/21/18 13:51 Consult to Occupational Therapy [CONS] Routine Comment: Evaluate, develop and implement POC Reason for Consult: Upper body activity. Does patient have active BEDREST order?: No Is patient medically & hemodynamically stable?: Yes Patient assessed for mobility or mobilized this visit?: Yes Consult to Physical Therapy [CONS] Routine Comment: Evaluate, develop and implement POC Reason for Consult: Left Knee Wound dehiscence. No knee ROM. Post-op assessment only Does patient have active BEDREST order?: No Is patient medically & hemodynamically stable?: Yes Patient assessed for mobility or mobilized this visit?: Yes Consult to Cafeteria Server [CONS] Routine Reason for SW Consult: Placement 05/21/18 18:08 Consult to Pastoral Services [CONS] Routine Comment: 05/22/18 15:13 Consult to Occupational Therapy [CONS] Routine Comment: Evaluate, develop and implement POC Reason for Consult: post knee surgery Does patient have active BEDREST order?: No Is patient medically & hemodynamically stable?: Yes Consult to Orthopedic Navigator [CONS] [CONS] Routine Consult to Physical Therapy [CONS] Routine Comment: Evaluate, develop and impliment POC Reason for Consult: post knee surgery Does patient have active BEDREST order?: No Is patient medically & hemodynamically stable?: Yes Consult to Cafeteria Server [CONS] Routine Reason for SW Consult: post op joint replacement RT Post Op Consult [CONS] Routine Labs on day of discharge: Labs from last 24 hours 05/23/18 05/23/18 05/22/18 03:50 03:50 13:47 Hgb 6.9 L 8.3 L Hct 22.3 L 26.8 L Sodium 138 Potassium 4.8 Chloride 108 H Carbon Dioxide 24 BUN 34 H Creatinine 2.00 H Est GFR ( Amer) 29 L Est GFR (Non-Af Amer) 24 L BUN/Creatinine Ratio 17 Glucose 125 H Calculated Osmolality 295 Calcium 8.0 L Blood Type Antibody Screen Crossmatch 05/21/18 21:37 Hgb Hct Sodium Potassium Chloride Carbon Dioxide BUN Creatinine Est GFR ( Amer) Est GFR (Non-Af Amer) BUN/Creatinine Ratio Glucose Calculated Osmolality Calcium Blood Type AB POSITIVE Antibody Screen NEGATIVE Crossmatch See Detail - Impressions ITS Impressions Chest X-Ray 05/21/18 15:21 IMPRESSION: 1. Right PICC line with its distal tip in the SVC. 2. Left upper lobe opacity may represent a developing infiltrate. Mild bibasilar atelectasis. D/ / Danielle Hernández MD / Danielle Hernández MD Interpreting Provider: Danielle Hernández MD Chest CT 05/21/18 18:32 IMPRESSION: No acute abnormality in the chest. No consolidation or other acute process. D/ / Otis Gallegos MD / Otis Gallegos MD Interpreting Provider: Otis Gallegos MD Knee X-Ray 05/22/18 10:39 IMPRESSION: 1. Postoperative appearance demonstrating a surgical drain in place laterally. No acute bony abnormality identified. No hardware complications visualized. D/ / 05/22/2018 14:33:22 Casey Mcqueen MD / [facility] Interpreting Provider: Casey Mcqueen MD - Patient Status Disposition: Transfer SNF Condition: Good - Discharge Instructions Instructions: Revision Total Joint Arthroplasty (DC) <Yanci Kaiser - Last Filed: 05/27/18 12:18> Orders not resulted at time of discharge: All results have resulted Date of Encounter: 05/27/18 - Discharge Diagnosis (1) Non-healing surgical wound Status: Acute Comments: Opsite dressing and Zipline and georges placed, leave intact until first post- operative visit. Will plan to assess wound at first post-op visit secondary to cast. Georges/Zipline dressing in place, plan to remove at POD#14-16. PT: Total Joint Precautions x 6 weeks. No knee flexion x 6 weeks to allow for wound healing. Apply ICE/cold therapy wrap through cast 3-6x/day for 20 minutes at a time. Encourage ambulation throughout the day and incentive spirometer 10x/hour. Elevate affected extremity above heart as tolerated. Long leg cast in placed, placed on 05/22. Keep HEEL off bed at all times to prevent wound breakdown. Cultures negative to date. Will discharge on IV Clindamycin x 2-4 weeks. Midline placed on 05/27. Qualifiers: Encounter type: subsequent encounter Qualified Code(s): T81.89XD - Other complications of procedures, not elsewhere classified, subsequent encounter (2) Status post revision of total replacement of left knee Priority: Primary Status: Acute (3) Acute on chronic kidney failure Status: Chronic Qualifiers: Acute renal failure type: unspecified Chronic kidney disease stage: stage 2 (mild) Qualified Code(s): N17.9 - Acute kidney failure, unspecified; N18.2 - Chronic kidney disease, stage 2 (mild) (4) COPD (chronic obstructive pulmonary disease) Status: Chronic Qualifiers: COPD type: chronic bronchitis Chronic bronchitis type: unspecified Qualified Code(s): J42 - Unspecified chronic bronchitis (5) Decreased ambulation status Status: Acute (6) Tibial plateau fracture, left Status: Acute Qualifiers: Encounter type: subsequent encounter Fracture type: closed Fracture healing: with routine healing Qualified Code(s): S82.142D - Displaced bicondylar fracture of left tibia, subsequent encounter for closed fracture with routine healing (7) Chronic pain Status: Chronic Qualifiers: Chronic pain type: other chronic pain Qualified Code(s): G89.29 - Other chronic pain (8) Hypertension Status: Chronic Qualifiers: Hypertension type: essential hypertension Qualified Code(s): I10 - Essential (primary) hypertension (9) Morbid obesity with BMI of 40.0-44.9, adult Status: Chronic - Hospital Course Hospital course: Noted that patient has history of +MRSA wound culture from 05/15, but most recent cultures from 05/22 are negative to date. Updated labs: Vital Signs Temp Pulse Resp BP Pulse Ox 05/27/18 11:23 98.3 F 98 17 179/100 94 05/27/18 10:41 17 93 05/27/18 07:16 98.6 F 87 17 139/80 93 05/26/18 22:57 98.4 F 83 18 127/69 100 05/26/18 18:54 98.5 F 84 18 104/68 97 Intake and Output 05/26/18 05/27/18 05/27/18 23:59 07:59 15:59 Intake Total 50 / 50 50 / 50 Output Total 100 / 100 Balance 50 / 50 50 / 50 -100 / -100 Intake: IV Fluids 50 / 50 50 / 50 Cleocin Premix 900 MG/50 ML 900 50 / 50 50 / 50 mg In 50 ml @ 50 mls/hr IVPB Q8HR [facility] Rx#:[id number] Output: Urine 100 / 100 Other: Stool Size Small Stool Consistency soft Stool Color Brown Abnormal Labs, Last 24 hours 05/27/18 05/27/18 10:06 06:15 Hgb 10.0 L Hct 30.7 L Potassium 5.3 H BUN 24 H Est GFR ( Amer) 57 L Est GFR (Non-Af Amer) 47 L Glucose 106 H - Time Spent with Patient Total time spent providing and/or coordinating discharge services: Date of admission: 05/21/18 12:02 Primary care physician: Anastacio Lovell MD Consults: 05/21/18 13:51 Consult to Occupational Therapy [CONS] Routine Comment: Evaluate, develop and implement POC Reason for Consult: Upper body activity. Does patient have active BEDREST order?: No Is patient medically & hemodynamically stable?: Yes Patient assessed for mobility or mobilized this visit?: Yes Consult to Physical Therapy [CONS] Routine Comment: Evaluate, develop and implement POC Reason for Consult: Left Knee Wound dehiscence. No knee ROM. Post-op assessment only Does patient have active BEDREST order?: No Is patient medically & hemodynamically stable?: Yes Patient assessed for mobility or mobilized this visit?: Yes Consult to Cafeteria Server [CONS] Routine Reason for SW Consult: Placement 05/21/18 18:08 Consult to Pastoral Services [CONS] Routine Comment: 05/22/18 15:13 Consult to Occupational Therapy [CONS] Routine Comment: Evaluate, develop and implement POC Reason for Consult: post knee surgery Does patient have active BEDREST order?: No Is patient medically & hemodynamically stable?: Yes Consult to Orthopedic Navigator [CONS] [CONS] Routine Consult to Physical Therapy [CONS] Routine Comment: Evaluate, develop and impliment POC Reason for Consult: post knee surgery Does patient have active BEDREST order?: No Is patient medically & hemodynamically stable?: Yes Consult to Cafeteria Server [CONS] Routine Reason for SW Consult: post op joint replacement RT Post Op Consult [CONS] Routine 05/27/18 07:58 Consult to Invasive Line Access Team [CONS] Routine Reason for Consult: assisted antibiotics Line Type: Midline Discharging clinician: Yanci Kaiser Anticipated date of discharge: 05/27/18 Labs on day of discharge: Labs from last 24 hours 05/27/18 05/27/18 05/26/18 10:06 06:15 09:25 Hgb 10.0 L Hct 30.7 L Sodium 137 Potassium 5.3 H Chloride 107 Carbon Dioxide 25 BUN 24 H Creatinine 1.11 Est GFR ( Amer) 57 L Est GFR (Non-Af Amer) 47 L BUN/Creatinine Ratio 22 Glucose 106 H Calculated Osmolality 288 Calcium 8.8 Stool Occult Blood Negative - Impressions ITS Impressions Chest X-Ray 05/21/18 15:21 IMPRESSION: 1. Right PICC line with its distal tip in the SVC. 2. Left upper lobe opacity may represent a developing infiltrate. Mild bibasilar atelectasis. D/ / Danielle Hernández MD / Danielle Hernández MD Interpreting Provider: Danielle Hernández MD Chest CT 05/21/18 18:32 IMPRESSION: No acute abnormality in the chest. No consolidation or other acute process. D/ / Otis Gallegos MD / Otis Gallegos MD Interpreting Provider: Otis Gallegos MD Knee X-Ray 05/22/18 10:39 IMPRESSION: 1. Postoperative appearance demonstrating a surgical drain in place laterally. No acute bony abnormality identified. No hardware complications visualized. D/ / 05/22/2018 14:33:22 Casey Mcqueen MD / [facility] Interpreting Provider: Casey Mcqueen MD - Patient Status Functional capacity at discharge: uses cane/walker Overall status at discharge: patient is progressing back to baseline - Diet and Activity Activity: as per physical therapy
--- NOTE | 2018-05-23 13:56 | Internal Med Progress Note ---
Hospitalist Progress Note - Encounter Date of Encounter: 05/23/18 Time of Encounter: 09:00 - Subjective Interval History: Pt had surgery yesterday. No overnight event. No cough or fever. - Exam Vitals: Temp Pulse Resp BP Pulse Ox 98.8 F 101 16 110/76 93 05/23/18 11:31 05/23/18 11:31 05/23/18 11:31 05/23/18 11:31 05/23/18 11:31 Exam: Pt is in NAD HEENT: NC/AT PERRL Neck: Supple, no LAD Lungs: CTA b/l Heart: S1S2, RRR Abd: Soft, NT Ext: No pedal edema, left knee in brace Neuro: AAO x 3, no focal deficit - Assessment and Plan (1) Colonic cancer Current Visit: No Status: Chronic Assessment and Plan: S/P surgery in 2007. Last CEA in 03/20/18 shows 3.2. (2) Acute renal failure Current Visit: No Status: Acute Assessment and Plan: Still mild elevated Cr level than baseline. Cont keep hydration and avoid nephrotoxic medication. (3) Hypertension Current Visit: No Status: Chronic Assessment and Plan: Not on any home med now. BP is acceptable. (4) Hypothyroidism Current Visit: No Status: Chronic Assessment and Plan: Cont home med (5) COPD (chronic obstructive pulmonary disease) Current Visit: No Status: Chronic Assessment and Plan: No signs of exacerbation. No wheezing. Cont home med sympcort and Duoneb PRN. (6) Preoperative clearance Current Visit: No Status: Acute Assessment and Plan: Pt had surgery, uneventful. Hospitalist will sign off. Thank you for letting us participate in this patient 's care. (7) Non-healing surgical wound Current Visit: No Status: Acute Assessment and Plan: Per ortho - Time Spent with Patient Total time spent is greater than 50% in coordination of care (as documented) at patient's floor/unit and/or counseling patient:30 min 25 - 35 minutes Plan of Care Discussed with: patient Internal Medicine: Result - Labs CBC & Chem 7: 05/23/18 03:50 05/23/18 03:50 Labs: Short CBC 05/22/18 05/23/18 Range/Units 13:47 03:50 Hgb 8.3 L 6.9 L (11.5-15.4) g/dL Hct 26.8 L 22.3 L (35.3-44.9) % BMP 05/23/18 03:50 Sodium 138 Potassium 4.8 Chloride 108 H Carbon Dioxide 24 BUN 34 H Creatinine 2.00 H Glucose 125 H Calcium 8.0 L - ABG Interpretation ABG results: PT/INR, D-dimer PT 13.3 Seconds (9.4-12.1) H 05/22/18 00:52 - Impressions Impressions Knee X-Ray 05/22/18 10:39 IMPRESSION: 1. Postoperative appearance demonstrating a surgical drain in place laterally. No acute bony abnormality identified. No hardware complications visualized. D/ / 05/22/2018 14:33:22 [facility] Inter[facility]ting Provider: Casey Mcqueen MD Consult Discharge Plan - Plan Referrals: Anastacio Lovell MD [Primary Care Provider] - Prescriptions: OxyCODONE Immed Rel [Roxicodone 5 MG] 5 mg PO Q6HR PRN 7 Days #28 tablet PRN Reason: Severe Pain (1) Colonic cancer Qualifiers: Colon location: transverse Qualified Code(s): C18.4 - Malignant neoplasm of transverse colon (2) Acute renal failure Qualifiers: Acute renal failure type: unspecified Qualified Code(s): N17.9 - Acute kidney failure, unspecified (3) Hypertension Qualifiers: Hypertension type: essential hypertension Qualified Code(s): I10 - Essential (primary) hypertension (4) Hypothyroidism Qualifiers: Hypothyroidism type: unspecified Qualified Code(s): E03.9 - Hypothyroidism, unspecified (5) COPD (chronic obstructive pulmonary disease) Qualifiers: COPD type: unspecified COPD Qualified Code(s): J44.9 - Chronic obstructive pulmonary disease, unspecified (7) Non-healing surgical wound Qualifiers: Encounter type: subsequent encounter Qualified Code(s): T81.89XD - Other complications of procedures, not elsewhere classified, subsequent encounter
[2018-05-23] MEDS ORDERED: 0.9 % Sodium Chloride 250 ML ONE ×2 (14:39→22:12)
[2018-05-23] MEDS: 0.9 % Sodium Chloride 1,000 ML IVC SCH (22:02)
[2018-05-24] MEDS: Clindamycin 900 MG/50 ML 900 MG/50 ML IV.SOLN IVPB SCH ×3 (00:18→16:31)
[2018-05-24] MEDS: Ringers Solution, Lactated 1,000 ML IVC SCH ×2 (01:27→06:50)
[2018-05-24] MEDS: traMADol 50 MG TABLET PO PRN ×2 (04:55→16:41)
[2018-05-24 05:37] LABS: Calcium 8.1 mg/dL (8.6-10.3); Potassium 4.5 mEq/L (3.5-5.1)
[2018-05-24 05:39] LABS: Hematocrit 23.9 % (35.3-44.9); Hemoglobin 7.7 g/dL (11.5-15.4)
[2018-05-24] MEDS: Budesonide/Formoterol 80/4.5 MDI IH SCH ×2 (07:47→20:27)
[2018-05-24] MEDS: Cholecalciferol (D-3) 1,000 UNIT TABLET PO SCH (08:46)
[2018-05-24] MEDS: Fenofibrate 54 MG TABLET PO SCH (08:46)
[2018-05-24] MEDS: Gabapentin 300 MG CAPSULE PO SCH ×3 (08:46→19:47)
[2018-05-24] MEDS: Nystatin POWDER 30 GM BOTTLE TP SCH ×2 (08:47→21:34)
--- NOTE | 2018-05-24 09:03 | Orthopedics Progress Note ---
Date of Encounter: 05/24/18 Time of Encounter: 09:03 - Assessment and Plan (1) Acute on chronic kidney failure Current Visit: Yes Status: Chronic Qualifiers: Acute renal failure type: unspecified Chronic kidney disease stage: stage 2 (mild) Qualified Code(s): N17.9 - Acute kidney failure, unspecified; N18.2 - Chronic kidney disease, stage 2 (mild) (2) COPD (chronic obstructive pulmonary disease) Current Visit: Yes Status: Chronic Qualifiers: COPD type: chronic bronchitis Chronic bronchitis type: unspecified Qualified Code(s): J42 - Unspecified chronic bronchitis (3) Non-healing surgical wound Current Visit: No Status: Acute Qualifiers: Encounter type: subsequent encounter Qualified Code(s): T81.89XD - Other complications of procedures, not elsewhere classified, subsequent encounter (4) Anxiety Current Visit: No Status: Chronic (5) Loosening of knee joint prosthesis Current Visit: No Status: Chronic Qualifiers: Encounter type: subsequent encounter Qualified Code(s): T84.038D - Mechanical loosening of other internal prosthetic joint, subsequent encounter; Z96.659 - Presence of unspecified artificial knee joint (6) Chronic kidney disease, stage II (mild) Current Visit: Yes Status: Chronic Subjective Interval history: PatPatient was seen this morning doing well without complaints. Afebrile vital signs stable. Operative extremity: Neurovascularly intact Cast intact Assessment and plan: Continue with postoperative care Cultures pending Objective Vital signs: Vital Signs Temp Pulse Resp BP Pulse Ox 05/24/18 08:28 98.7 F 90 18 102/57 95 05/24/18 07:46 12 96 05/24/18 02:29 98.9 F 97 16 119/73 94 05/24/18 00:14 98.9 F 92 16 101/63 94 05/23/18 23:59 98.1 F 99 18 108/53 91 05/23/18 22:27 90 05/23/18 20:04 16 93 05/23/18 18:40 98.8 F 17 115/57 05/23/18 16:06 100.2 F H 90 16 110/57 93 05/23/18 14:58 99.2 F 97 17 114/63 05/23/18 14:42 99.5 F 79 18 113/50 92 05/23/18 11:31 98.8 F 101 16 110/76 93 Intake and Output 05/23/18 05/24/18 05/24/18 23:59 07:59 15:59 Intake Total 350 / 350 1600 / 1600 Output Total 390 / 390 Balance -40 / -40 1590 / 1590 Intake: IV Fluids 50 / 50 1050 / 1050 Lactated Ringers 1,000 ML @ 75 1000 / 1000 mls/hr IVC .[id number] [facility] Rx#: [id number] Cleocin Premix 900 MG/50 ML 900 50 / 50 50 / 50 mg In 50 ml @ 50 mls/hr IVPB Q8HR [facility] Rx#:[id number] Oral 0 / 0 200 / 200 Blood Product 300 / 300 350 / 350 Rbcs Leuko Poor As-1 Unit 300 / 300 [id number] Rbcs Leuko Poor As-1 Unit 0 / 0 350 / 350 [id number] Output: Urine 350 / 350 Wound Drainage Left Knee Other: # Voids 1 1 - Labs CBC & BMP: 05/24/18 04:52 05/24/18 04:52 Labs: Abnormal lab results RBC 2.64 M/mcL (3.82-4.97) L 05/22/18 00:52 Hgb 7.7 g/dL (11.5-15.4) L 05/24/18 04:52 Hct 23.9 % (35.3-44.9) L 05/24/18 04:52 MCHC 30.9 g/dL (31.6-35.5) L 05/22/18 00:52 RDW 15.9 % (11.5-14.5) H 05/22/18 00:52 PT 13.3 Seconds (9.4-12.1) H 05/22/18 00:52 BUN 38 mg/dL (8-23) H 05/24/18 04:52 Creatinine 1.84 mg/dL (0.60-1.20) H 05/24/18 04:52 Est GFR ( Amer) 32 (> 60) L 05/24/18 04:52 Est GFR (Non-Af Amer) 26 (> 60) L 05/24/18 04:52 Glucose 125 mg/dL (70-105) H 05/24/18 04:52 Calcium 8.1 mg/dL (8.6-10.3) L 05/24/18 04:52 Iron 20 mcg/dL (50-170) L 05/22/18 00:52 % Saturation 6 % (15-50) L 05/22/18 00:52 Consult Discharge Plan - Plan Referrals: Anastacio Lovell MD [Primary Care Provider] - Prescriptions: OxyCODONE Immed Rel [Roxicodone 5 MG] 5 mg PO Q6HR PRN 7 Days #28 tablet PRN Reason: Severe Pain
--- NOTE | 2018-05-24 21:57 | Event Note ---
Date of Encounter: 05/24/18 Time of Encounter: 21:55 I spoke with Microbiology regarding cultures results from 05/22 cultures. They state they needed to let bacteria collect longer, anticipate growth to return by Sunday, and sensitivity on Sunday. We plan to wait until cultures result to discharge. Patient aware and nurse aware. Anticipate D/C Sunday or Sunday
[2018-05-25] MEDS: Clindamycin 900 MG/50 ML 900 MG/50 ML IV.SOLN IVPB SCH ×3 (00:06→16:40)
[2018-05-25 04:40] LABS: Hematocrit 17.9 % (35.3-44.9)
[2018-05-25 04:45] LABS: Hemoglobin 5.5 g/dL (11.5-15.4)
[2018-05-25] MEDS: *HR* OxyCODONE Immed Rel 5 MG TABLET PO PRN ×2 (05:14→18:40)
[2018-05-25] MEDS ORDERED: 0.9 % Sodium Chloride 250 ML ONE ×2 (05:41→18:22)
[2018-05-25] MEDS: Budesonide/Formoterol 80/4.5 MDI IH SCH ×2 (07:58→20:15)
[2018-05-25] MEDS: Cholecalciferol (D-3) 1,000 UNIT TABLET PO SCH (08:39)
[2018-05-25] MEDS: Nystatin POWDER 30 GM BOTTLE TP SCH ×2 (08:40→22:04)
[2018-05-25] MEDS: Gabapentin 300 MG CAPSULE PO SCH ×3 (08:40→21:58)
[2018-05-25] MEDS: Fenofibrate 54 MG TABLET PO SCH (08:40)
[2018-05-26] MEDS: *HR* OxyCODONE Immed Rel 5 MG TABLET PO PRN ×2 (00:50→15:01)
[2018-05-26] MEDS: Clindamycin 900 MG/50 ML 900 MG/50 ML IV.SOLN IVPB SCH ×3 (00:51→16:44)
[2018-05-26 01:06] LABS: Hematocrit 30.8 % (35.3-44.9)
[2018-05-26 01:10] LABS: Hemoglobin 9.9 g/dL (11.5-15.4)
--- NOTE | 2018-05-26 06:02 | Orthopedics Progress Note ---
Date of Encounter: 05/26/18 Time of Encounter: 06:01 - Assessment and Plan (1) Acute on chronic kidney failure Current Visit: Yes Status: Chronic Qualifiers: Acute renal failure type: unspecified Chronic kidney disease stage: stage 2 (mild) Qualified Code(s): N17.9 - Acute kidney failure, unspecified; N18.2 - Chronic kidney disease, stage 2 (mild) (2) COPD (chronic obstructive pulmonary disease) Current Visit: Yes Status: Chronic Qualifiers: COPD type: chronic bronchitis Chronic bronchitis type: unspecified Qualified Code(s): J42 - Unspecified chronic bronchitis (3) Non-healing surgical wound Current Visit: No Status: Acute Qualifiers: Encounter type: subsequent encounter Qualified Code(s): T81.89XD - Other complications of procedures, not elsewhere classified, subsequent encounter (4) Anxiety Current Visit: No Status: Chronic (5) Loosening of knee joint prosthesis Current Visit: No Status: Chronic Qualifiers: Encounter type: subsequent encounter Qualified Code(s): T84.038D - Mechanical loosening of other internal prosthetic joint, subsequent encounter; Z96.659 - Presence of unspecified artificial knee joint (6) Chronic kidney disease, stage II (mild) Current Visit: Yes Status: Chronic (7) Acute blood loss anemia Current Visit: Yes Status: Acute Subjective Interval history: PatPatient was seen this morning doing well without complaints. Afebrile vital signs stable. Operative extremity: Neurovascularly intact Cast intact Assessment and plan: Continue with postoperative care Cultures negative, hemoglobin 9.9 Objective Vital signs: Vital Signs Temp Pulse Resp BP Pulse Ox 05/26/18 00:17 98.4 F 83 17 104/68 89 05/25/18 21:08 98.3 F 84 14 115/63 91 05/25/18 20:15 16 94 05/25/18 18:42 98.6 F 94 18 123/62 94 05/25/18 18:27 98.9 F 89 16 139/71 91 05/25/18 16:25 97.9 F 83 16 143/82 90 05/25/18 12:58 97.8 F 80 18 128/72 94 05/25/18 08:40 98.4 F 75 16 121/61 94 05/25/18 07:58 18 96 05/25/18 06:06 97.7 F 84 15 122/52 96 Intake and Output 05/25/18 05/25/18 05/26/18 15:59 23:59 07:59 Intake Total 660 / 660 400 / 400 Balance 660 / 660 400 / 400 Intake: IV Fluids 70 / 70 50 / 50 0.9 % Sodium Chloride 250 ML @ 20 / 20 0 mls/hr .ROUTE .STK-MED ONE Rx #:[id number] Cleocin Premix 900 MG/50 ML 900 50 / 50 50 / 50 mg In 50 ml @ 50 mls/hr IVPB Q8HR [facility] Rx#:[id number] Oral 240 / 240 Blood Product 350 / 350 350 / 350 Rbcs Leuko Poor As-1 Unit 350 / 350 [id number] Rbcs Leuko Poor As-1 Unit 350 / 350 [id number] Other: Meal Lunch Percent of Meal Consumed 95% # Voids 1 - Labs CBC & BMP: 05/26/18 00:42 05/24/18 04:52 Labs: Abnormal lab results RBC 2.64 M/mcL (3.82-4.97) L 05/22/18 00:52 Hgb 9.9 g/dL (11.5-15.4) L D 05/26/18 00:42 Hct 30.8 % (35.3-44.9) L 05/26/18 00:42 MCHC 30.9 g/dL (31.6-35.5) L 05/22/18 00:52 RDW 15.9 % (11.5-14.5) H 05/22/18 00:52 PT 13.3 Seconds (9.4-12.1) H 05/22/18 00:52 BUN 38 mg/dL (8-23) H 05/24/18 04:52 Creatinine 1.84 mg/dL (0.60-1.20) H 05/24/18 04:52 Est GFR ( Amer) 32 (> 60) L 05/24/18 04:52 Est GFR (Non-Af Amer) 26 (> 60) L 05/24/18 04:52 Glucose 125 mg/dL (70-105) H 05/24/18 04:52 Calcium 8.1 mg/dL (8.6-10.3) L 05/24/18 04:52 Iron 20 mcg/dL (50-170) L 05/22/18 00:52 % Saturation 6 % (15-50) L 05/22/18 00:52 Consult Discharge Plan - Plan Referrals: Anastacio Lovell MD [Primary Care Provider] - Prescriptions: OxyCODONE Immed Rel [Roxicodone 5 MG] 5 mg PO Q6HR PRN 7 Days #28 tablet PRN Reason: Severe Pain
[2018-05-26] MEDS: Cholecalciferol (D-3) 1,000 UNIT TABLET PO SCH (08:47)
[2018-05-26] MEDS: Gabapentin 300 MG CAPSULE PO SCH ×3 (08:47→20:53)
[2018-05-26] MEDS: Fenofibrate 54 MG TABLET PO SCH (08:47)
[2018-05-26] MEDS: Nystatin POWDER 30 GM BOTTLE TP SCH ×2 (09:24→20:53)
[2018-05-26] MEDS: Budesonide/Formoterol 80/4.5 MDI IH SCH (10:29)
[2018-05-26] MEDS ORDERED: Lidocaine -MPF 1% 5 ML AMPUL INFILT ONE (10:46)
[2018-05-27] MEDS: Budesonide/Formoterol 80/4.5 MDI IH SCH ×2 (00:40→10:38)
[2018-05-27] MEDS: Clindamycin 900 MG/50 ML 900 MG/50 ML IV.SOLN IVPB SCH ×3 (00:49→15:12)
[2018-05-27] MEDS: *HR* OxyCODONE Immed Rel 5 MG TABLET PO PRN ×2 (00:49→12:04)
[2018-05-27 06:34] LABS: Hematocrit 30.7 % (35.3-44.9)
--- NOTE | 2018-05-27 06:57 | Orthopedics Progress Note ---
Date of Encounter: 05/27/18 Time of Encounter: 06:57 - Assessment and Plan (1) Acute on chronic kidney failure Current Visit: Yes Status: Chronic Qualifiers: Acute renal failure type: unspecified Chronic kidney disease stage: stage 2 (mild) Qualified Code(s): N17.9 - Acute kidney failure, unspecified; N18.2 - Chronic kidney disease, stage 2 (mild) (2) COPD (chronic obstructive pulmonary disease) Current Visit: Yes Status: Chronic Qualifiers: COPD type: chronic bronchitis Chronic bronchitis type: unspecified Qualified Code(s): J42 - Unspecified chronic bronchitis (3) Non-healing surgical wound Current Visit: No Status: Acute Qualifiers: Encounter type: subsequent encounter Qualified Code(s): T81.89XD - Other complications of procedures, not elsewhere classified, subsequent encounter (4) Anxiety Current Visit: No Status: Chronic (5) Loosening of knee joint prosthesis Current Visit: No Status: Chronic Qualifiers: Encounter type: subsequent encounter Qualified Code(s): T84.038D - Mechanical loosening of other internal prosthetic joint, subsequent encounter; Z96.659 - Presence of unspecified artificial knee joint (6) Chronic kidney disease, stage II (mild) Current Visit: Yes Status: Chronic (7) Acute blood loss anemia Current Visit: Yes Status: Acute Subjective Interval history: PatPatient was seen this morning doing well without complaints. Afebrile vital signs stable. Operative extremity: Neurovascularly intact Cast intact Assessment and plan: Continue with postoperative care Cultures negative, discharged today Objective Vital signs: Vital Signs Temp Pulse Resp BP Pulse Ox 05/26/18 22:57 98.4 F 83 18 127/69 100 05/26/18 18:54 98.5 F 84 18 104/68 97 05/26/18 11:21 97.9 F 71 18 141/78 94 05/26/18 10:29 16 141/78 94 05/26/18 07:04 98.2 F 75 16 140/78 98 Intake and Output 05/26/18 05/26/18 05/27/18 15:59 23:59 07:59 Intake Total 410 / 410 50 / 50 Balance 410 / 410 50 / 50 Intake: IV Fluids 50 / 50 50 / 50 Cleocin Premix 900 MG/50 ML 900 50 / 50 50 / 50 mg In 50 ml @ 50 mls/hr IVPB Q8HR [facility] Rx#:[id number] Oral 360 / 360 Other: Meal Lunch Percent of Meal Consumed 85% Stool Size Moderate Stool Consistency soft # Voids 1 # Bowel Movements 1 - Labs CBC & BMP: 05/27/18 06:15 05/24/18 04:52 Labs: Abnormal lab results RBC 2.64 M/mcL (3.82-4.97) L 05/22/18 00:52 Hgb 10.0 g/dL (11.5-15.4) L 05/27/18 06:15 Hct 30.7 % (35.3-44.9) L 05/27/18 06:15 MCHC 30.9 g/dL (31.6-35.5) L 05/22/18 00:52 RDW 15.9 % (11.5-14.5) H 05/22/18 00:52 PT 13.3 Seconds (9.4-12.1) H 05/22/18 00:52 BUN 38 mg/dL (8-23) H 05/24/18 04:52 Creatinine 1.84 mg/dL (0.60-1.20) H 05/24/18 04:52 Est GFR ( Amer) 32 (> 60) L 05/24/18 04:52 Est GFR (Non-Af Amer) 26 (> 60) L 05/24/18 04:52 Glucose 125 mg/dL (70-105) H 05/24/18 04:52 Calcium 8.1 mg/dL (8.6-10.3) L 05/24/18 04:52 Iron 20 mcg/dL (50-170) L 05/22/18 00:52 % Saturation 6 % (15-50) L 05/22/18 00:52 Consult Discharge Plan - Plan Referrals: Anastacio Lovell MD [Primary Care Provider] - Prescriptions: OxyCODONE Immed Rel [Roxicodone 5 MG] 5 mg PO Q6HR PRN 7 Days #28 tablet PRN Reason: Severe Pain
[2018-05-27] MEDS: Gabapentin 300 MG CAPSULE PO SCH ×2 (09:16→15:29)
[2018-05-27] MEDS: Fenofibrate 54 MG TABLET PO SCH (09:17)
[2018-05-27] MEDS: Cholecalciferol (D-3) 1,000 UNIT TABLET PO SCH (09:21)
[2018-05-27] MEDS: Nystatin POWDER 30 GM BOTTLE TP SCH (09:22)
[2018-05-27 10:44] LABS: Calcium 8.8 mg/dL (8.6-10.3); Potassium 5.3 mEq/L (3.5-5.1)
--- NOTE | 2018-05-27 12:20 | Physician Discharge Referral ---
ExtendedCare Referral Info Transfer To: [facility] Provider in Charge: Provider in Charge after Transfer: PCP Institutional Level of Care: Skilled - Diagnosis (1) Non-healing surgical wound Priority: Primary Status: Acute (2) Status post revision of total replacement of left knee Priority: Primary Status: Acute (3) Acute on chronic kidney failure Priority: Secondary Status: Resolved (4) COPD (chronic obstructive pulmonary disease) Priority: Secondary Status: Chronic (5) Decreased ambulation status Priority: Secondary Status: Acute (6) Tibial plateau fracture, left Priority: Secondary Status: Acute (7) Chronic pain Priority: Secondary Status: Chronic (8) Hypertension Priority: Secondary Status: Chronic (9) Morbid obesity with BMI of 40.0-44.9, adult Priority: Secondary Status: Chronic Expected Duration of Placement: < 30 days Prognosis: Good Aware of Diagnosis: Patient Aware of Prognosis: Patient - Transfer Medications Prescriptions: OxyCODONE Immed Rel [Roxicodone 5 MG] 5 mg PO Q6HR PRN 7 Days #28 tablet PRN Reason: Severe Pain Clindamycin 900 MG/50 ML [Cleocin Premix 900 MG/50 ML] 900 mg IV Q8H 28 Days #1 bag Home Medications: Clopidogrel [Plavix] 75 mg PO DAILY 09/08/15 [History] Colesevelam HCl [Welchol] 1,875 mg PO BID 09/08/15 [History] Duloxetine HCl [Cymbalta] 60 mg PO DAILY 09/08/15 [History] Fenofibrate Nanocrystallized [Tricor] 48 mg PO DAILY 08/26/16 [History] Amitriptyline [Elavil] 50 mg PO HS 03/29/18 [History] Fluticasone/Salmeterol [Advair 250-50 Diskus] 1 puff IH BID 03/29/18 [History] Levothyroxine [Synthroid] 100 mcg PO DAILY 03/29/18 [History] Aspirin Enteric Coated [Aspirin EC] 325 mg PO BID 10 Days tablet. 04/05/18 [ Rx] Pantoprazole Sodium 40 mg PO DAILY 04/12/18 [History] Pregabalin [Lyrica] 200 mg PO BID 04/12/18 [History] Cholecalciferol (D-3) [Vitamin D] 2,000 unit PO DAILY 05/21/18 [History] Gabapentin [Neurontin] 600 mg PO TID 05/21/18 [History] OxyCODONE Immed Rel [Roxicodone 5 MG] 5 mg PO Q6HR PRN 7 Days #28 tablet [Rx] Clindamycin 900 MG/50 ML [Cleocin Premix 900 MG/50 ML] 900 mg IV Q8H 28 Days #1 bag 05/27/18 [Rx] Docusate [Colace] 100 mg PO BID capsule 05/27/18 [Rx] Ferrous Sulfate 325 mg PO BIDWM tablet 05/27/18 [Rx] Ipratropium/Albuterol Neb [Duoneb] 3 ml IH [id number] PRN inhsol 05/27/18 [Rx] Ondansetron [Zofran] 4 mg IVP Q6HR PRN vial 05/27/18 [Rx] Allergies/Adverse Reactions: 3 Allergy/AdvReac Type Severity Reaction Status Date / Time Diclofenac [From Arthrotec] Allergy See Verified 05/20/18 16:50 Comments misoprostol [From Arthrotec] Allergy See Verified 05/20/18 16:50 Comments Qjseyvl-Sty-Aeo Reductase Allergy See Verified 05/20/18 16:50 Inhibitor Comments morphine AdvReac Agitated Verified 05/20/18 16:50 - Respiratory Orders None Smoking Cessation: Smoking cessation has been advised. For more information, call the [place] Tobacco Quit Line at 5-473-VBCH-NOW. - Mobility Orders Chair, Ambulate - Rehabiliation Orders Rehab Potential: Good Rehab Orders: ROM Exercises, Evaluation for Physical Therapy, Evaluation for Occupational Therapy Other: No knee ROM. WBAT in cast. - Treatments Skin tear care topically daily PRN per policy, May check for fecal impaction rectally daily PRN, Fleet enema rectally every other day PRN cleansing purposes List/Other: Opsite dressing and Zipline and paul placed, leave intact until first post- operative visit. Will plan to assess wound at first post-op visit secondary to cast. Gleason/Zipline dressing in place, plan to remove at POD#14-16. PT: Total Joint Precautions x 6 weeks. No knee flexion x 6 weeks to allow for wound healing. Apply ICE/cold therapy wrap through cast 3-6x/day for 20 minutes at a time. Encourage ambulation throughout the day and incentive spirometer 10x/hour. Elevate affected extremity above heart as tolerated. Long leg cast in placed, placed on 05/22. Keep HEEL off bed at all times to prevent wound breakdown. Cultures negative to date. Will discharge on IV Clindamycin x 2-4 weeks. Midline placed on 05/27. Midline care needed daily. - Diet Orders Regular CERTIFICATION: I certify that the transfer of the above named patient to an Extended Care Facility is necessary for the continuing treatment of the diagnosis listed. The above information is true and accurate reflection of patient's current condition. Confidential - Redisclosure prohibited without a patient's written consent.
[2018-05-27 17:33] LABS: Basophils # 0.1 K/mcL (0.0-0.2); Basophils % 0.9 %; Eosinophils # 0.1 K/mcL (0.0-0.6); Eosinophils % 2.1 %; Hematocrit 29.5 % (35.3-44.9); Hemoglobin 9.5 g/dL (11.5-15.4); Immature Granulocytes % 0.5 % (0-4); Lymphocytes # 1.1 K/mcL (0.6-4.6); Lymphocytes % 19.5 %; Mean Corpuscular HGB Conc 32.2 g/dL (31.6-35.5); Mean Corpuscular Hemoglobin 29.3 pg (28.0-33.3); Mean Platelet Volume 9.3 fL (9.4-12.4); Monocytes # 0.5 K/mcL (0.0-1.3); Monocytes % 9.4 %; Neutrophils # 3.9 K/mcL (1.6-8.9); Platelet Count 265 K/mcL (140-400); Red Blood Count 3.24 M/mcL (3.82-4.97); Segmented Neutrophils % 67.6 %
--- NOTE | 2018-05-27 18:25 | Event Note ---
Date of Encounter: 05/27/18 Time of Encounter: 16:45 Nurse asked me to check on patient due to drowsiness. She was asleep upon entering the room. She easily awoken with verbal stimuli and answered my questions. She knew her name and date of . She knew she was at a hospital in [place] but couldnt remember the name and she remembered the name of the president. She could not tell me the current month. She did keep her eyes closed through entire exam and would need to be awoken again. Discussed with Gardenia Kaiser who states this appears to be her baseline as this is my first time evaluating this patient. Otherwise stable and in no distress. Gardenia Kaiser to order stat CBC. If labs stable then will continue with plan for DC today to ECF.
[2018-05-27 19:33] VITALS: BP 131/80
== END 2018-05-27 21:11 | DRG 908 ==
LOC: 3NENU 12:02
PROVIDERS: ADMIT Orthopaedic Surgery; ATTEND Orthopaedic Surgery
PROC: ORTPOLY (2018-05-22 10:05)

== ENCOUNTER 2018-06-29 12:56 | Inpatient (IN) ==
--- NOTE | 2018-06-29 16:21 | Internal Med History&Physical ---
Date of Encounter: 06/29/18 Time of Encounter: 16:17 Internal Medicine - H&P: HPI Chief complaint: bright red blood per rectum Admitted From: Home Plans for Post Hospital Care: Home History of present illness: Ms. Calero is a 82 year old female with past medical history of TIA, colonic CA, HTN, COPD, GI bleed, acute blood loss anemia, and CKD. Pt presented to ED with rectal bleeding this morning, 06/29/2018. Pt reports history of colon CA and states she is s/p colon resectiokn. She states she missed her appointment with oncology back in March 2018. She denies any unexpected weight loss. She states she is currently at SNF getting rehab. She denies Abdominal pain or bloody emesis. In ED Hgb 8.5, hct 26.9, plt 304. Na 139, K 4.4, BUN 25, Cr 1.24. Past Med Surg Social Fam HX - Past Medical History Medical history: arthritis, cancer, COPD, GERD, hyperlipidemia, hypertension, TIA Additional medical history: colon CA, neuropathy Psychiatric history: anxiety, depression, panic disorder - Past Surgical History Surgical History: appendectomy, , cancer surgery, cholecystectomy, colectomy, hysterectomy, other Additional surgical history: Left Tibial Loosening with Total left knee replacement. - Social History Smoking Status: Never smoker Smokeless Tobacco Status: No Alcohol use: none Drug use: none - Family History Mother Adopted: No Family Member Ethnicity: Non- Living Status: Hx Family Cardiac Disorders: No Hx Family Respiratory Disorders: No Hx Family Cancer: Yes (breast, colon) Hx Family GI Disorders: No Hx Family Endocrine Disorder: No Hx Family Neuromuscular Disorders: No Hx Family Neurologic Disorders: No Hx Family HEENT Disorders: No Hx Family Autoimmune Disorders: No Internal Medicine - H&P: Meds Clopidogrel [Plavix] 75 mg PO DAILY 09/08/15 [History] Colesevelam HCl [Welchol] 1,875 mg PO BID 09/08/15 [History] Duloxetine HCl [Cymbalta] 60 mg PO DAILY 09/08/15 [History] Fenofibrate Nanocrystallized [Tricor] 48 mg PO DAILY 08/26/16 [History] Amitriptyline [Elavil] 50 mg PO HS 03/29/18 [History] Fluticasone/Salmeterol [Advair 250-50 Diskus] 1 puff IH BID 03/29/18 [History] Levothyroxine [Synthroid] 100 mcg PO DAILY 03/29/18 [History] Aspirin Enteric Coated [Aspirin EC] 325 mg PO BID 10 Days tablet. 04/05/18 [Rx] Pantoprazole Sodium 40 mg PO DAILY 04/12/18 [History] Cholecalciferol (D-3) [Vitamin D] 2,000 unit PO DAILY 05/21/18 [History] Gabapentin [Neurontin] 600 mg PO BID 05/21/18 [History] Clindamycin 900 MG/50 ML [Cleocin Premix 900 MG/50 ML] 900 mg IV Q8H 28 Days #1 bag 05/27/18 [Rx] Docusate [Colace] 100 mg PO BID capsule 05/27/18 [Rx] Ferrous Sulfate 325 mg PO BIDWM tablet 05/27/18 [Rx] Ipratropium/Albuterol Neb [Duoneb] 3 ml IH [id number] PRN inhsol 05/27/18 [Rx] Ondansetron [Zofran] 4 mg IVP Q6HR PRN vial 05/27/18 [Rx] Fluticasone/Vilanterol [Breo Ellipta 100-25 Mcg INH] 1 puff IN DAILY 06/29/18 [History] Gabapentin [Neurontin] 800 mg PO HS 06/29/18 [History] Tramadol HCl [Ultram] 50 mg PO QID PRN 06/29/18 [History] Allergy/AdvReac Type Severity Reaction Status Date / Time Diclofenac [From Arthrotec] Allergy See Verified 06/07/18 23:15 Comments misoprostol [From Arthrotec] Allergy See Verified 06/07/18 23:15 Comments Ndbwoej-Kzb-Kho Reductase Allergy See Verified 06/07/18 23:15 Inhibitor Comments morphine AdvReac Agitated Verified 06/07/18 23:15 All Systems PM: A 10-system review of systems was performed and is negative for pertinent findings except as documented above in the HPI. - Constitutional Vitals: Temp Pulse Resp BP Pulse Ox 98.1 F 74 16 100/64 91 06/29/18 15:09 06/29/18 15:09 06/29/18 15:09 06/29/18 15:09 06/29/18 15:09 General appearance: Present: A&O X 3, no acute distress Exam: . - Head Head exam: Present: atraumatic, normocephalic - Eye Eye exam: Present: PERRL, conjuntiva pink, sclera anicteric Pupils: Present: PERRL - Neck Neck exam general surgery: Present: supple, trachea midline. Absent: lymphadenopathy - Respiratory Respiratory exam: Present: CTAB. Absent: accessory muscle use, rales, rhonchi, wheezes - Cardiovascular Cardiovascular exam: Present: RRR, +S1, +S2. Absent: diastolic murmur, gallop, rubs, systolic murmur - GI/Abdominal GI/Abdominal exam: Present: normal bowel sounds, soft, no peritoneal signs. Absent: distended, tenderness - Extremities Exam Extremities exam: Present: warm, radial pulses palpable and symmetrical. Absent: calf tenderness, cyanotic, pedal edema - Neurological Exam Neurological exam: Present: CN II-XII intact, oriented X3, no focal deficits. Absent: pronater drift, facial droop, speech deficit - Skin Skin exam: Present: dry, intact - Assessment and plan (1) GI bleeding Current Visit: No Status: Acute Assessment and plan: Pt has pior hx of GI bleed. She is on ASA and plavix. Will hold plavix for now Colonoscopy done 03/01/2017 showed multiple internal hemorrhoids. Will check abdominal CT with PO contrast. Will consult GI or surgery depending on who is on for the weekend. Qualifiers: GI bleed type/associated pathology: unspecified gastrointestinal hemorrhage type Qualified Code(s): K92.2 - Gastrointestinal hemorrhage, unspecified (2) Normocytic anemia Current Visit: Yes Status: Acute Assessment and plan: Will monitor Hgb. Will transfuse if < 7.0 (3) CKD (chronic kidney disease) stage 3, GFR 30-59 ml/min Current Visit: Yes Status: Acute Assessment and plan: Will monitor renal function (4) Hypertension Current Visit: No Status: Chronic Assessment and plan: Meds need verified. Will hold BP medications for now due to hypotension. Qualifiers: Hypertension type: essential hypertension Qualified Code(s): I10 - Essential (primary) hypertension - Time Spent With Patient Total time spent is greater than 50% in coordination of care (as documented) at patient's floor/unit and/or counseling patient: 25 - 35 minutes
[2018-06-29] MEDS ORDERED: Naloxone 0.4 MG/ML INJ IVP PRN (16:22)
[2018-06-29 17:10] LABS: INR 1.1; Prothrombin Time 12.9 Seconds (9.4-12.1)
[2018-06-29] MEDS ORDERED: Isovue-370 500 ML INFUS..BTL PO ONE (18:34)
[2018-06-29] MEDS: Acetaminophen 325 MG TABLET PO PRN (22:57)
[2018-06-30 04:54] LABS: Hematocrit 29.1 % (35.3-44.9); Hemoglobin 9.1 g/dL (11.5-15.4); Mean Corpuscular HGB Conc 31.3 g/dL (31.6-35.5); Mean Corpuscular Hemoglobin 27.7 pg (28.0-33.3); Mean Corpuscular Volume 88.4 fL (83.0-100.0); Mean Platelet Volume 9.6 fL (9.4-12.4); Platelet Count 364 K/mcL (140-400); Red Blood Count 3.29 M/mcL (3.82-4.97); Red Cell Distribution Width 15.5 % (11.5-14.5)
[2018-06-30 05:11] LABS: BUN/Creatinine Ratio 20 (6-26); Blood Urea Nitrogen 20 mg/dL (8-23); Calcium 9.4 mg/dL (8.6-10.3); Carbon Dioxide 27 mEq/L (23-29); Chloride 104 mEq/L (98-107); Glucose 105 mg/dL (70-105); Osmolality,Calculated 289 (280-300); Potassium 4.1 mEq/L (3.5-5.1); Sodium 138 mEq/L (136-145); eGFR For Non-African Americans 53 (> 60)
[2018-06-30] MEDS: Acetaminophen 325 MG TABLET PO PRN ×2 (05:22→16:50)
[2018-06-30] MEDS: Levothyroxine Sodium 100 MCG VIAL IVP SCH (08:43)
[2018-06-30] MEDS: Pantoprazole 40 MG VIAL IVP SCH (08:43)
--- NOTE | 2018-06-30 11:32 | Internal Med Progress Note ---
Hospitalist Progress Note - Encounter Date of Encounter: 06/30/18 Time of Encounter: 08:49 - Subjective Interval History: Patient seen and examined this morning. No acute overnight events. NPO for now. Denies dizziness, palpitation, chest pain, sob or abdominal pain. - Exam Vitals: Temp Pulse Resp BP Pulse Ox 98.9 F 83 14 182/84 96 06/30/18 10:34 06/30/18 10:34 06/30/18 10:34 06/30/18 10:34 06/30/18 10:34 Exam: General: In no acute distress. Conversant. Obese. Respiratory exam: CTAB. no accessory muscle use, rales, rhonchi, wheezes Cardiovascular exam: RRR, +S1, +S2. no murmur, gallop, rubs. GI/Abdominal exam: Non-tender, Non-distended, normal bowel sounds, soft, no peritoneal signs. Extremities exam: trace 1+ pedal edema, warm, pulses palpable in Rt lower extremities. no calf tenderness. Lt leg with brace present. Lt hand fluctuant swelling. Mildly tender . non erythematous. Not warm. Neurological exam: CN II-XII intact, AO X3, no focal deficits. no pronater drift , facial droop, speech deficit Skin exam: No skin rash, ulcer, purpura or ecchymosis. - Assessment and Plan (1) Hypertension Current Visit: No Status: Chronic (2) GI bleeding Current Visit: No Status: Acute (3) Normocytic anemia Current Visit: Yes Status: Acute (4) CKD (chronic kidney disease) stage 3, GFR 30-59 ml/min Current Visit: Yes Status: Acute - Summary of Assessment and Plan Summary of Assessment and Plan: GI bleeding - Pt has pior hx of GI bleed. She is on ASA and plavix. Will hold plavix for now - Colonoscopy done 03/01/2017 showed multiple internal hemorrhoids, diverticulosis of sigmoid. - Abdominal CT with colonic diverticulosis with diverticulitis. No mass noted. - Appears to Lower GI as patient mentions BM to be on bright red side and on/off on tissue for months. Possible from internal hemorrhoids. - NPO. f/u surgery Normocytic anemia - Baseline appears to be around 9-10 - Came with 8.7>8.5>9.1 - Will transfuse if < 7.0 - Some component of CKD h/o knee replacement - Wound grew MRSA and was discharged on clidamycin for 2-4 weeks starting 05/27. - appears to finished course. - Was being followed by orthopedist Lt hand swelling - Has been followed with orthopedist. Improving over past few weeks. - Does not appear to be infected - Will monitor for now Hypothyroid - Start IV levothyroxin at 50 CKD II - Will monitor renal function Hypertension - BP elevated this morning. - Start prn labetalol 5 iv q6hr for BP >160 - Time Spent with Patient Total time spent is greater than 50% in coordination of care (as documented) at patient's floor/unit and/or counseling patient: Internal Medicine: Result - Labs CBC & Chem 7: 06/30/18 04:11 06/30/18 04:11 Labs: Short CBC 06/30/18 Range/Units 04:11 WBC 4.8 (4.3-11.1) K/mcL Hgb 9.1 L (11.5-15.4) g/dL Hct 29.1 L (35.3-44.9) % Plt Count 364 (140-400) K/mcL BMP 06/30/18 04:11 Sodium 138 Potassium 4.1 Chloride 104 Carbon Dioxide 27 BUN 20 Creatinine 1.01 Glucose 105 Calcium 9.4 - ABG Interpretation ABG results: PT/INR, D-dimer PT 12.9 Seconds (9.4-12.1) H 06/29/18 16:43 - Impressions Impressions Abdomen/Pelvis CT 06/29/18 21:00 IMPRESSION: No acute abnormality. D/ / 06/29/2018 21:51:10 Brando Saba MD / [email or web address] Interpreting Provider: Brando Saba MD Consult Discharge Plan - Plan Referrals: NONE,PCP [Primary Care Provider] - (1) Hypertension Qualifiers: Hypertension type: essential hypertension Qualified Code(s): I10 - Essential (primary) hypertension (2) GI bleeding Qualifiers: GI bleed type/associated pathology: unspecified gastrointestinal hemorrhage type Qualified Code(s): K92.2 - Gastrointestinal hemorrhage, unspecified
[2018-06-30] MEDS ORDERED: *HR* Labetalol 20 MG/4 ML SYRINGE IVP ONE (11:36)
--- NOTE | 2018-06-30 16:42 | General Surgery Consult Note ---
Date of Encounter: 06/30/18 Time of Encounter: 16:42 Assessment and Plan (1) Lower GI bleed Current Visit: Yes Status: Acute 82F multiple comorbidities, prior colon cancer with recurrent LGIB; HDS trend h/h CLD, NPO at midnight plan for EGD, colonoscopy in AM hold plavix cares per primary team History of Present Illness Consult date: 06/30/18 Reason for consult: other (lower GI bleed) History of present illness: 82F h/o COPDP, TIA, colon cancer s/p resection in 2007 who presents with recurrent lower GI bleeding. It was reported as bright red blood with clots within the bowel. It is difficult to ascertain how long this has been going on, but she has had a recent colonoscopy (about 1 year ago) which demonstrated hemorrhoids and diverticulosis. No reports of dizziness, lightheadedness, chest pain nor shortness of breath. No She has had a recent knee surgery and is wearing a left knee brace. She denies any increase of pain in her left leg. She states she feels well other than "I am just tired". It is noted on bedside exam that she has prominent swelling over the dorsum of her left hand. She states that his been present for 2-3 weeks and has been diagnosed as a hematoma. She has had negative x-rays as well as an attempted aspiration of the hematoma/seroma that was unsuccessful. Past Med Surg Social Fam HX - Past Medical History Medical history: arthritis, cancer, COPD, GERD, hyperlipidemia, hypertension, TIA Additional medical history: colon CA, neuropathy Psychiatric history: anxiety, depression, panic disorder - Past Surgical History Surgical History: appendectomy, , cancer surgery, cholecystectomy, colectomy, hysterectomy, other Additional surgical history: Left Tibial Loosening with Total left knee replacement. - Social History Smoking Status: Never smoker Smokeless Tobacco Status: No Alcohol use: none Drug use: none - Family History Mother Adopted: No Family Member Ethnicity: Non- Living Status: Hx Family Cardiac Disorders: No Hx Family Respiratory Disorders: No Hx Family Cancer: Yes (breast, colon) Hx Family GI Disorders: No Hx Family Endocrine Disorder: No Hx Family Neuromuscular Disorders: No Hx Family Neurologic Disorders: No Hx Family HEENT Disorders: No Hx Family Autoimmune Disorders: No Medications and Allergies Clopidogrel [Plavix] 75 mg PO DAILY 09/08/15 [History] Duloxetine HCl [Cymbalta] 60 mg PO DAILY 09/08/15 [History] Amitriptyline [Elavil] 50 mg PO HS 03/29/18 [History] Fluticasone/Salmeterol [Advair 250-50 Diskus] 1 puff IH BID 03/29/18 [History] Levothyroxine [Synthroid] 100 mcg PO DAILY 03/29/18 [History] Pantoprazole Sodium 40 mg PO DAILY 04/12/18 [History] Cholecalciferol (D-3) [Vitamin D] 2,000 unit PO DAILY 05/21/18 [History] Gabapentin [Neurontin] 600 mg PO BID 05/21/18 [History] Clindamycin 900 MG/50 ML [Cleocin Premix 900 MG/50 ML] 900 mg IV Q8H 28 Days #1 bag 05/27/18 [Rx] Ferrous Sulfate 325 mg PO BIDWM tablet 05/27/18 [Rx] Fluticasone/Vilanterol [Breo Ellipta 100-25 Mcg INH] 1 puff IN DAILY 06/29/18 [History] Gabapentin [Neurontin] 800 mg PO HS 06/29/18 [History] Tramadol HCl [Ultram] 50 mg PO QID PRN 06/29/18 [History] Aspirin Enteric Coated [Aspirin EC] 325 mg PO DAILY 06/30/18 [History] Colestipol HCl [Colestid] 2 gm PO BID 06/30/18 [History] Docusate [Colace] 100 mg PO BID PRN 06/30/18 [History] Fenofibrate [Tricor] 54 mg PO DAILY 06/30/18 [History] Allergy/AdvReac Type Severity Reaction Status Date / Time Diclofenac [From Arthrotec] Allergy See Verified 06/07/18 23:15 Comments misoprostol [From Arthrotec] Allergy See Verified 06/07/18 23:15 Comments Jdhiwnj-Gdr-Qvt Reductase Allergy See Verified 06/07/18 23:15 Inhibitor Comments morphine AdvReac Agitated Verified 06/07/18 23:15 Review of Systems All systems PM: 12 point ROS negative besides HPI findings General Surgery Exam Initial Vital Signs Temp Pulse Resp BP Pulse Ox 98.1 F 74 16 100/64 91 06/29/18 15:09 06/29/18 15:09 06/29/18 15:09 06/29/18 15:09 06/29/18 15:09 - General physical appearance no distress - Eyes normal ocular movement - ENT normocephalic - Neck no lymphadectomy - Respiratory normal expansion, normal respiratory effort - Cardiovascular Cardiovascular exam: Present: RRR - Abdomen Abdomen general surgery: Present: soft, non tender - Integumentary Integumentary general surgery: Present: warm and dry - Neurologic Present: CN 2-12 grossly intact - Musculoskeletal Present: normal posture - Psychiatric Psychiatric general surgery: Present: A&Ox3 Exam Initial Vital Signs Temp Pulse Resp BP Pulse Ox 98.1 F 74 16 100/64 91 06/29/18 15:09 06/29/18 15:09 06/29/18 15:09 06/29/18 15:09 06/29/18 15:09 Results - Labs 06/30/18 04:11 06/30/18 04:11 Abnormal lab results RBC 3.29 M/mcL (3.82-4.97) L 06/30/18 04:11 Hgb 9.1 g/dL (11.5-15.4) L 06/30/18 04:11 Hct 29.1 % (35.3-44.9) L 06/30/18 04:11 MCH 27.7 pg (28.0-33.3) L 06/30/18 04:11 MCHC 31.3 g/dL (31.6-35.5) L 06/30/18 04:11 RDW 15.5 % (11.5-14.5) H 06/30/18 04:11 PT 12.9 Seconds (9.4-12.1) H 06/29/18 16:43 Est GFR (Non-Af Amer) 53 (> 60) L 06/30/18 04:11 Diabetes panel 06/30/18 Range/Units 04:11 Sodium 138 (136-145) mEq/L Potassium 4.1 (3.5-5.1) mEq/L Chloride 104 (98-107) mEq/L Carbon Dioxide 27 (23-29) mEq/L BUN 20 (8-23) mg/dL Creatinine 1.01 (0.60-1.20) mg/dL Glucose 105 (70-105) mg/dL Calcium 9.4 (8.6-10.3) mg/dL Calcium panel 06/30/18 Range/Units 04:11 Calcium 9.4 (8.6-10.3) mg/dL Pituitary panel 06/30/18 Range/Units 04:11 Sodium 138 (136-145) mEq/L Potassium 4.1 (3.5-5.1) mEq/L Chloride 104 (98-107) mEq/L Carbon Dioxide 27 (23-29) mEq/L BUN 20 (8-23) mg/dL Creatinine 1.01 (0.60-1.20) mg/dL Glucose 105 (70-105) mg/dL Calcium 9.4 (8.6-10.3) mg/dL Adrenal panel 06/30/18 Range/Units 04:11 Sodium 138 (136-145) mEq/L Potassium 4.1 (3.5-5.1) mEq/L Chloride 104 (98-107) mEq/L Carbon Dioxide 27 (23-29) mEq/L BUN 20 (8-23) mg/dL Creatinine 1.01 (0.60-1.20) mg/dL Glucose 105 (70-105) mg/dL Calcium 9.4 (8.6-10.3) mg/dL All other labs normal. Consult Discharge Plan - Plan Referrals: NONE,PCP [Primary Care Provider] -
[2018-06-30] MEDS: *HR* Labetalol 20 MG/4 ML SYRINGE IVP PRN (16:49)
[2018-06-30] MEDS ORDERED: Polyethylene Glycol 3350 255 GM POWDER PO ONE (19:47)
[2018-07-01] MEDS: Acetaminophen 325 MG TABLET PO PRN ×2 (05:05→11:37)
[2018-07-01 07:03] LABS: Hematocrit 31.6 % (35.3-44.9); Hemoglobin 10.2 g/dL (11.5-15.4); Mean Corpuscular HGB Conc 32.3 g/dL (31.6-35.5); Mean Corpuscular Hemoglobin 27.7 pg (28.0-33.3); Mean Corpuscular Volume 85.9 fL (83.0-100.0); Mean Platelet Volume 9.7 fL (9.4-12.4); Platelet Count 350 K/mcL (140-400); Red Blood Count 3.68 M/mcL (3.82-4.97); Red Cell Distribution Width 15.1 % (11.5-14.5)
[2018-07-01] MEDS: Pantoprazole 40 MG VIAL IVP SCH (09:46)
[2018-07-01] MEDS: Levothyroxine Sodium 100 MCG VIAL IVP SCH (09:46)
--- NOTE | 2018-07-01 11:35 | Internal Med Progress Note ---
Hospitalist Progress Note - Encounter Date of Encounter: 07/01/18 Time of Encounter: 08:53 - Subjective Interval History: Patient seen and examined this morning. No acute overnight events. NPO for procedures. Denies dizziness, palpitation, chest pain, sob or abdominal pain. - Exam Vitals: Temp Pulse Resp BP Pulse Ox 98.0 F 84 14 171/89 95 07/01/18 10:37 07/01/18 10:37 07/01/18 10:37 07/01/18 10:43 07/01/18 10:37 Exam: General: In no acute distress. Conversant. Obese. Respiratory exam: CTAB. no accessory muscle use, rales, rhonchi, wheezes Cardiovascular exam: RRR, +S1, +S2. no murmur, gallop, rubs. GI/Abdominal exam: Non-tender, Non-distended, normal bowel sounds, soft, no peritoneal signs. Extremities exam: trace 1+ pedal edema, warm, pulses palpable in Rt lower extremities. no calf tenderness. Lt leg with brace present. Lt hand fluctuant swelling. Mildly tender . non erythematous. Not warm. Neurological exam: CN II-XII intact, AO X3, no focal deficits. no pronater drift, facial droop, speech deficit Skin exam: No skin rash, ulcer, purpura or ecchymosis. - Assessment and Plan (1) Hypertension Current Visit: No Status: Chronic (2) GI bleeding Current Visit: No Status: Acute (3) Normocytic anemia Current Visit: Yes Status: Acute (4) CKD (chronic kidney disease) stage 3, GFR 30-59 ml/min Current Visit: Yes Status: Acute - Summary of Assessment and Plan Summary of Assessment and Plan: GI bleeding - Pt has pior hx of GI bleed. She is on ASA and plavix. Will hold plavix for now - Colonoscopy done 03/01/2017 showed multiple internal hemorrhoids, diverticulosis of sigmoid. - Abdominal CT with colonic diverticulosis with diverticulitis. No mass noted. - Appears to Lower GI as patient mentions BM to be on bright red side and on/off on tissue for months. Possible from internal hemorrhoids. - Plan for EGD, colonoscopy today - Surgery following Normocytic anemia - Baseline appears to be around 9-10 - Came with 8.7>8.5>9.1>10.1 - Will transfuse if < 7.0 - Some component of CKD h/o knee replacement - Wound grew MRSA and was discharged on clidamycin for 2-4 weeks starting 05/27. - appears to finished course. - Was being followed by orthopedist Lt hand swelling - Has been followed with orthopedist. Improving over past few weeks. - Does not appear to be infected - Will monitor for now Hypothyroid - Start IV levothyroxin at 50 CKD II - Will monitor renal function Hypertension - BP elevated. Home med without any antihypertensives - Start hydarlasine IV q8hr. Will discharge on Lisinopril on given CKD. - prn labetalol 5 iv q6hr for BP >160 - Time Spent with Patient Total time spent is greater than 50% in coordination of care (as documented) at patient's floor/unit and/or counseling patient: Internal Medicine: Result - Labs CBC & Chem 7: 07/01/18 06:24 06/30/18 04:11 Labs: Short CBC 07/01/18 Range/Units 06:24 WBC 5.1 (4.3-11.1) K/mcL Hgb 10.2 L (11.5-15.4) g/dL Hct 31.6 L (35.3-44.9) % Plt Count 350 (140-400) K/mcL - ABG Interpretation ABG results: PT/INR, D-dimer PT 12.9 Seconds (9.4-12.1) H 06/29/18 16:43 Consult Discharge Plan - Plan Referrals: NONE,PCP [Primary Care Provider] - (1) Hypertension Qualifiers: Hypertension type: essential hypertension Qualified Code(s): I10 - Essential (primary) hypertension (2) GI bleeding Qualifiers: GI bleed type/associated pathology: unspecified gastrointestinal hemorrhage type Qualified Code(s): K92.2 - Gastrointestinal hemorrhage, unspecified
[2018-07-01] MEDS: *HR* Labetalol 20 MG/4 ML SYRINGE IVP PRN (11:38)
[2018-07-01] MEDS ORDERED: Propofol 500 MG/50 ML INFUS..BTL ONE (12:13)
--- NOTE | 2018-07-01 12:27 | Anesthesia Evaluation PreOp ---
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 left leg I&D) : No Alcohol Use: none Drug use: none Medications and Allergies Clopidogrel [Plavix] 75 mg PO DAILY 09/08/15 [History] Duloxetine HCl [Cymbalta] 60 mg PO DAILY 09/08/15 [History] Amitriptyline [Elavil] 50 mg PO HS 03/29/18 [History] Fluticasone/Salmeterol [Advair 250-50 Diskus] 1 puff IH BID 03/29/18 [History] Levothyroxine [Synthroid] 100 mcg PO DAILY 03/29/18 [History] Pantoprazole Sodium 40 mg PO DAILY 04/12/18 [History] Cholecalciferol (D-3) [Vitamin D] 2,000 unit PO DAILY 05/21/18 [History] Gabapentin [Neurontin] 600 mg PO BID 05/21/18 [History] Clindamycin 900 MG/50 ML [Cleocin Premix 900 MG/50 ML] 900 mg IV Q8H 28 Days #1 bag 05/27/18 [Rx] Ferrous Sulfate 325 mg PO BIDWM tablet 05/27/18 [Rx] Fluticasone/Vilanterol [Breo Ellipta 100-25 Mcg INH] 1 puff IN DAILY 06/29/18 [History] Gabapentin [Neurontin] 800 mg PO HS 06/29/18 [History] Tramadol HCl [Ultram] 50 mg PO QID PRN 06/29/18 [History] Aspirin Enteric Coated [Aspirin EC] 325 mg PO DAILY 06/30/18 [History] Colestipol HCl [Colestid] 2 gm PO BID 06/30/18 [History] Docusate [Colace] 100 mg PO BID PRN 06/30/18 [History] Fenofibrate [Tricor] 54 mg PO DAILY 06/30/18 [History] Allergy/AdvReac Type Severity Reaction Status Date / Time Diclofenac [From Arthrotec] Allergy See Verified 06/07/18 23:15 Comments misoprostol [From Arthrotec] Allergy See Verified 06/07/18 23:15 Comments Zsjpnce-Gtz-Eow Reductase Allergy See Verified 06/07/18 23:15 Inhibitor Comments morphine AdvReac Agitated Verified 06/07/18 23:15 - Meds/Allergy Pre-op Review Medications Reviewed: Yes Allergies Reviewed: Yes Anesthesia Results - Labs 07/01/18 06:24 06/30/18 04:11 - Imaging EKG: report reviewed (SINUS RHYTHM WITH SINUS ARRHYTHMIA MARKED LEFT AXIS DEVIATION VOLTAGE CRITERIA FOR LVH) Anesthesia Exam Vital Signs/O2 Sat, Most Current Temp Pulse Resp BP Pulse Ox 98.0 F 84 14 171/89 95 07/01/18 10:37 07/01/18 10:37 07/01/18 10:37 07/01/18 10:43 07/01/18 10:37 NPO (# of Hours): > 8 hrs Pain Scale: 0 Pain Scale Used: Numeric (1 - 10) - HEENT Pupil (Motor): Pupils equal, EOMI Mallampati: III Teeth: Edentulous Oral Opening: Greater than 3 - INDUSTRY ANALYST LOC: Oriented INDUSTRY ANALYST Motor: Normal RUE, Normal LUE, Normal RLE, Normal LLE, Normal Face INDUSTRY ANALYST Sensory: Normal: RUE, LUE, RLE, LLE, Face - Cardiac Rhythm: Regular Murmur: None JVD: No Carotid Bruit: No - Pulmonary Breath Sounds: bilateral Clear Respiratory Effort: Symmetrical Anesthesia Assess/Plan ASA Score: 3 Modified Donaldo Scale for Level of Consciousness: Cooperative, oriented, and tranquil Anesthetic Plan: MAC Autologous Blood: Yes Monitoring Plan: Standard Monitors Recovery Plan: Other <Reuben Hauser - Last Filed: 07/01/18 13:07> - Past History Cardiac History: Other (Anemia) Other Medical History: Renal (CKD), Other (RLS, Colon CA MO) - Meds/Allergy Pre-op Review Medications Reviewed: Yes Allergies Reviewed: Yes Beta Blockers on Current Med List: Yes (Labetalolo today [id number]) Anesthesia Results - Labs 07/01/18 06:24 06/30/18 04:11 - Imaging EKG: report reviewed Anesthesia Exam - HEENT Pupil (Motor): Pupils equal, EOMI Mallampati: III Teeth: Edentulous Oral Opening: Greater than 3 - INDUSTRY ANALYST LOC: Oriented INDUSTRY ANALYST Motor: Normal RUE, Normal LUE, Normal RLE, Normal LLE, Normal Face INDUSTRY ANALYST Sensory: Normal: RUE, LUE, RLE, LLE, Face Anesthesia Assess/Plan Recovery Plan: Other (Discussed MAC, agrees to proceed)
[2018-07-01] MEDS ORDERED: *HR* Propofol 200 MG/20 ML VIAL IVP ONE (12:58)
[2018-07-01] MEDS ORDERED: Lidocaine -MPF 2% 2 ML VIAL ONE (13:15)
--- NOTE | 2018-07-01 14:20 | Anesthesia Evaluation Post Op ---
Date of Encounter: 07/01/18 Time of Encounter: 14:19 - Vital Signs Vital Signs: Vital Signs Temperature 98.1 F 06/29/18 15:09 Pulse Rate 74 06/29/18 15:09 Respiratory Rate 16 06/29/18 15:09 Blood Pressure 100/64 06/29/18 15:09 O2 Sat by Pulse Oximetry 91 06/29/18 15:09 Temperature 98.0 F 07/01/18 13:10 Pulse Rate 106 07/01/18 13:10 Respiratory Rate 20 07/01/18 13:10 Blood Pressure 174/113 07/01/18 13:10 O2 Sat by Pulse Oximetry 99 07/01/18 13:10 - Lungs Lungs: Clear Ascult./Percussion - Airway Airway: Non-obstructed - Cardiovascular Regular Rate - Mental Status Mental Status: Alert & Oriented, Answers Appropriately - Pain Pain Scale: 0 Pain Scale used: Numeric (1 - 10) - Nausea Vomiting Nausea Vomiting: Not Present - Hydration Hydration: NPO, Has not voided - Discharge PostOp Status: Transfer Patient to floor
[2018-07-01] MEDS: hydrALAZINE 25 MG TABLET PO SCH ×3 (15:04→23:12)
[2018-07-01] MEDS: Budesonide/Formoterol 160/4.5 1 PUFF INH IH SCH (20:41)
[2018-07-02] MEDS: *HR* Labetalol 20 MG/4 ML SYRINGE IVP PRN (04:42)
--- NOTE | 2018-07-02 09:07 | General Surgery Progress Note ---
<Vicente Hurst - Last Filed: 07/02/18 09:05> Date of Encounter: 07/02/18 Time of Encounter: 09:05 - Assessment and Plan (1) GI bleeding Current Visit: No Status: Acute Patient is post-op day 1 for EGD and colonoscopy Procedure showed diverticulosis in multiple areas of colon, non-bleeding internal hemorrhoids, and a small hiatal hernia Patient denies BM since procedure Patient on protonix 40 mg IV daily Hgb 9.1 > 10.2 today Instructed patient to increase fiber in diet Patient may follow-up with Dr. Vail as needed Surgery will sign off now, thank you for the consult Qualifiers: GI bleed type/associated pathology: unspecified gastrointestinal hemorrhage type Qualified Code(s): K92.2 - Gastrointestinal hemorrhage, unspecified Subjective Patient reports: no new complaints, feels better, flatus, no bowel movement, afebrile Narrative: Patient admits to some nausea. She denies abdominal pain, vomiting Objective Vital Signs - Last 8 Hours Temp Pulse Resp BP Pulse Ox 07/02/18 06:24 99 F 81 15 167/87 95 07/02/18 04:15 98.1 F 86 16 179/78 96 Intake and Output 07/01/18 07/02/18 07/02/18 23:59 07:59 15:59 Intake Total 0 / 0 0 / 0 Output Total 400 / 400 0 / 0 Balance -400 / -400 0 / 0 Intake: Oral 0 / 0 0 / 0 Output: Urine 0 / 0 0 / 0 Urine/Stool Mix 400 / 400 Other: # Voids 1 # Urine Diapers 2 # Bowel Movements 1 Weight 95.3 kg Blood Glucose* 125 132 Patient Weight 07/02/18 23:59 Weight 95.3 kg - General physical appearance well developed - Respiratory normal expansion, normal respiratory effort - Cardiovascular Cardiovascular exam: Present: RRR - Abdomen Abdomen: Present: bowel sounds present, soft, non tender - Integumentary no rash - Psychiatric oriented to time, oriented to person, oriented to place - Labs 07/01/18 06:24 06/30/18 04:11 Consult Discharge Plan - Plan Referrals: NONE,PCP [Primary Care Provider] - <Lnony Vail - Last Filed: 07/02/18 11:55> - Assessment and Plan (1) Lower GI bleed Current Visit: Yes Status: Acute Objective Vital Signs - Last 8 Hours Temp Pulse Resp BP Pulse Ox 07/02/18 10:00 98 07/02/18 09:53 98.2 F 92 14 164/93 98 07/02/18 06:24 99 F 81 15 167/87 95 07/02/18 04:15 98.1 F 86 16 179/78 96 Intake and Output 07/01/18 07/02/18 07/02/18 23:59 07:59 15:59 Intake Total 0 / 0 0 / 0 0 / 0 Output Total 400 / 400 0 / 0 Balance -400 / -400 0 / 0 0 / 0 Intake: Oral 0 / 0 0 / 0 0 / 0 Output: Urine 0 / 0 0 / 0 Urine/Stool Mix 400 / 400 Other: Meal npo # Voids 1 1 # Urine Diapers 2 # Bowel Movements 1 Weight 95.3 kg Blood Glucose* 125 132 112 Patient Weight 07/02/18 23:59 Weight 95.3 kg - Labs 07/01/18 06:24 06/30/18 04:11 - Attending Attestation patient seen and examined. i have reviewed all labs, imaging and notes. i have discussed the plan in detail with the resident. I agree with the above assessment and plan.
[2018-07-02] MEDS: hydrALAZINE 25 MG TABLET PO SCH ×2 (10:03→16:23)
[2018-07-02] MEDS: Levothyroxine Sodium 100 MCG VIAL IVP SCH (10:03)
[2018-07-02] MEDS: Pantoprazole 40 MG VIAL IVP SCH (10:04)
[2018-07-02] MEDS: Budesonide/Formoterol 160/4.5 1 PUFF INH IH SCH ×2 (10:48→20:25)
--- NOTE | 2018-07-02 14:16 | Internal Med Progress Note ---
<Tamara Lopez E - Last Filed: 07/02/18 15:45> Hospitalist Progress Note - Encounter Date of Encounter: 07/02/18 Time of Encounter: 08:45 - Subjective Interval History: Yan Calero was admitted for rectal bleeding on 06/29/18. She has a history of TIA, colonic CA, HTN, GI bleed. She is s/p colonic resection. HAd EGD and Co lonoscopy yesterday. EGD without abnormalities. Colonoscopy with widespread diverticulosis, no active bleeding. Patient was on aspirin and plavix but is a poor historian and does not know when she was originally placed on these, first she said for her broken leg and then for her strokes. She has not had any bright nikki blood per-rectum since she came to the ED. - Exam Vitals: Temp Pulse Resp BP Pulse Ox 98.2 F 92 14 164/93 98 07/02/18 09:53 07/02/18 09:53 07/02/18 09:53 07/02/18 09:53 07/02/18 10:00 Exam: General: awake, alert, oriented, no acute distress, answers qeustions appropriately Cardiovascular: RRR, no murmurs, rubs or gallops Pulmonary: clear to auscultation bialterally, no wheezes, rales, rhonchi GI: normoactive bowel sounds, no guarding or rigidity. Skin: warm, dry, intact Musculoskeletal: no pitting edema, able to get self out of bed with help. - Assessment and Plan (1) GI bleeding Current Visit: No Status: Acute Assessment and Plan: Pt has history of GI bleed, was on aspirin and plavix, this was held on her admission. Colonoscopy and EGD performed yesterday. EGD benign. Colonoscopy showed widespread diverticulosis with no active bleeding. Surgery recommends increase in fiber and follow up outpatient if needed Started on clear liquid diet (2) Normocytic anemia Current Visit: Yes Status: Acute Assessment and Plan: Baseline appears around 9-10 Today 10.2 Continue to monitor (3) Status post total knee replacement, left Current Visit: No Status: Acute Assessment and Plan: Wound grew MRSA, was discharged on clidamycin for 2-4 weeks starting 05/27, finised course Followed by orthopedist outpatient (4) CKD (chronic kidney disease) stage 3, GFR 30-59 ml/min Current Visit: Yes Status: Acute Assessment and Plan: continue to monitor renal function (5) Hypertension Current Visit: No Status: Chronic Assessment and Plan: Start lisinopril 10mg as she is not currently on any home medications for hypertension Will restart Aspirin (6) Hypothyroidism Current Visit: No Status: Chronic Assessment and Plan: restart levothyroxin oral 100mg DVT Prophylaxis: Restarting Aspirin 325 Restart Plavix 75mg - Time Spent with Patient Total time spent is greater than 50% in coordination of care (as documented) at patient's floor/unit and/or counseling patient: Plan of Care Discussed with: patient Internal Medicine: Result - Labs CBC & Chem 7: 07/01/18 06:24 06/30/18 04:11 - ABG Interpretation ABG results: PT/INR, D-dimer PT 12.9 Seconds (9.4-12.1) H 06/29/18 16:43 Consult Discharge Plan - Plan Referrals: NONE,PCP [Primary Care Provider] - <Timmy Muñoz - Last Filed: 07/02/18 17:14> Hospitalist Progress Note - Exam Vitals: Temp Pulse Resp BP Pulse Ox 98.1 F 106 15 149/96 98 07/02/18 14:13 07/02/18 15:48 07/02/18 14:13 07/02/18 14:13 07/02/18 14:13 - Assessment and Plan (1) Hypertension Current Visit: No Status: Chronic (2) GI bleeding Current Visit: No Status: Acute (3) Normocytic anemia Current Visit: Yes Status: Acute (4) CKD (chronic kidney disease) stage 3, GFR 30-59 ml/min Current Visit: Yes Status: Acute - Time Spent with Patient Total time spent is greater than 50% in coordination of care (as documented) at patient's floor/unit and/or counseling patient: Internal Medicine: Result - Labs CBC & Chem 7: 07/01/18 06:24 06/30/18 04:11 - ABG Interpretation ABG results: PT/INR, D-dimer PT 12.9 Seconds (9.4-12.1) H 06/29/18 16:43 - Attending Attestation I examined this patient and my medical decision-making was reviewed with the Resident Physician. I agree with the documented findings, disposition and treatment plan as described except to the extent set forth below. <HarmeetlevyOchoa camarenagloria Cannon - Last Filed: 07/02/18 15:45> (1) GI bleeding Qualifiers: GI bleed type/associated pathology: unspecified gastrointestinal hemorrhage type Qualified Code(s): K92.2 - Gastrointestinal hemorrhage, unspecified (5) Hypertension Qualifiers: Hypertension type: essential hypertension Qualified Code(s): I10 - Essential (primary) hypertension (6) Hypothyroidism Qualifiers: Hypothyroidism type: unspecified Qualified Code(s): E03.9 - Hypothyroidism, unspecified <Timmy Muñoz - Last Filed: 07/02/18 17:14> (1) Hypertension Qualifiers: Hypertension type: essential hypertension Qualified Code(s): I10 - Essential (primary) hypertension (2) GI bleeding Qualifiers: GI bleed type/associated pathology: unspecified gastrointestinal hemorrhage type Qualified Code(s): K92.2 - Gastrointestinal hemorrhage, unspecified
[2018-07-02] MEDS: Acetaminophen 325 MG TABLET PO PRN (22:40)
[2018-07-03] MEDS: hydrALAZINE 25 MG TABLET PO SCH ×2 (00:17→07:58)
[2018-07-03] MEDS: Acetaminophen 325 MG TABLET PO PRN (04:58)
[2018-07-03 05:32] LABS: Basophils # 0.1 K/mcL (0.0-0.2); Basophils % 1.2 %; Eosinophils # 0.1 K/mcL (0.0-0.6); Eosinophils % 1.4 %; Hematocrit 33.5 % (35.3-44.9); Hemoglobin 10.9 g/dL (11.5-15.4); Immature Granulocytes % 0.3 % (0-4); Lymphocytes # 1.3 K/mcL (0.6-4.6); Lymphocytes % 19.4 %; Mean Corpuscular HGB Conc 32.5 g/dL (31.6-35.5); Mean Corpuscular Hemoglobin 27.9 pg (28.0-33.3); Mean Corpuscular Volume 85.7 fL (83.0-100.0); Mean Platelet Volume 9.8 fL (9.4-12.4); Monocytes # 0.5 K/mcL (0.0-1.3); Neutrophils # 4.6 K/mcL (1.6-8.9); Platelet Count 390 K/mcL (140-400); Red Blood Count 3.91 M/mcL (3.82-4.97); Red Cell Distribution Width 15.7 % (11.5-14.5); Segmented Neutrophils % 69.7 %
[2018-07-03 07:48] VITALS: BP 153/84
[2018-07-03] MEDS: Budesonide/Formoterol 160/4.5 1 PUFF INH IH SCH (08:28)
[2018-07-03] MEDS ORDERED: Aspirin 325 MG TABLET PO SCH (09:00)
[2018-07-03 09:33] LABS: Albumin 3.9 g/dL (3.5-5.7); Albumin/Globulin Ratio 1.1 (1.1-2.2); Bilirubin,Total 0.4 mg/dL (0.3-1.0); Calcium 9.6 mg/dL (8.6-10.3); Globulin 3.7 g/dL (2.4-3.5); Potassium 3.3 mEq/L (3.5-5.1); Total Protein 7.6 g/dL (6.4-8.9)
[2018-07-03] MEDS ORDERED: Ipratropium/Albuterol Neb 3 ML IH PRN (11:36)
[2018-07-03] MEDS ORDERED: Ondansetron ODT 4 MG TAB.RAPDIS PO PRN (11:36)
--- NOTE | 2018-07-03 14:44 | Discharge Summary ---
- NOTES TO OUTPATIENT PROVIDER Notes to Outpatient Provider: - Follow-up CBC in 3 days for anemia. - Follow-up BMP in 3 days for renal function (baseline is 1.0-1.4). - Primary care should re-assess if patient needs dual antiplatelet therapy as was on admission. Aspirin and Plavix were held on admission. Patient now stable. Will HOLD Plavix on discharge, but continue Aspirin 325 mg daily on DC. - Recommend follow-up of the left hand mass. Consider imaging or referral to specialist. Date of Encounter: 07/03/18 Time of Encounter: 14:42 - Discharge Diagnosis (1) GI bleeding Priority: Primary Status: Acute Qualifiers: GI bleed type/associated pathology: unspecified gastrointestinal hemorrhage type Qualified Code(s): K92.2 - Gastrointestinal hemorrhage, unspecified (2) Hypertension Priority: Secondary Status: Chronic Qualifiers: Hypertension type: essential hypertension Qualified Code(s): I10 - Essential (primary) hypertension (3) Normocytic anemia Priority: Secondary Status: Acute (4) CKD (chronic kidney disease) stage 3, GFR 30-59 ml/min Priority: Secondary Status: Acute (5) Diverticulosis Priority: Secondary Status: Acute Qualifiers: Diverticulosis site: unspecified location Diverticulosis bleeding: diverticulosis with bleeding Qualified Code(s): K57.91 - Diverticulosis of intestine, part unspecified, without perforation or abscess with bleeding (6) History of TIA (transient ischemic attack) Priority: Secondary Status: Acute Assessment and Plan: She is on Plavix per records for TIA. She is on aspirin for DVT prophylaxis. (7) Left upper extremity deep vein thrombosis Priority: Secondary Status: Acute Assessment and Plan: Reviewed venous duplex done on 06/11/18. On Aspirin for DVT prophylaxis per ECF med rec. She is on Plavix for TIA history. 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 Calero is a 82 year old female with past medical history of TIA, colon CA s/p resection, HTN, COPD, history of GI bleed, CKD, DVT of LUE 06/11/18. She presented from SNF for rectal bleed. Her hemoglobin was found to be 8.5 and plt 304 prior to admission. Per SNF med list, she is on Plavix for TIA and Aspirin 325 mg daily for DVT prophylaxis. She had a CT done in ED that showed no acute abnormality. Upon admission her hemoglobin was 9.1. Surgery was consulted over the weekend and an EGD was done that was unremarkable, a colonoscopy showed diverticulosis. There was no active bleed seen. She remained hemodynamically stable and hemoglobin improved to 10.9. No further issues of GI bleed. She was stable for discharge with instructions for high fiber diet. Plavix will be held on discharge, but Aspirin will be resumed since she had a recent DVT. She is not on anticoagulation on admission. PCP will have to reassess if she needs to have Plavix added back on. - Time Spent with Patient Total time spent providing and/or coordinating discharge services: - Discharge Medications Prescriptions: Tramadol HCl [Ultram] 50 mg PO TID 3 Days #9 tablet Home Medications: Duloxetine HCl [Cymbalta] 60 mg PO DAILY 09/08/15 [History] Amitriptyline [Elavil] 50 mg PO HS 03/29/18 [History] Fluticasone/Salmeterol [Advair 250-50 Diskus] 1 puff IH BID 03/29/18 [History] Levothyroxine [Synthroid] 100 mcg PO DAILY 03/29/18 [History] Pantoprazole Sodium 40 mg PO DAILY 04/12/18 [History] Cholecalciferol (D-3) [Vitamin D] 2,000 unit PO DAILY 05/21/18 [History] Gabapentin [Neurontin] 600 mg PO BID 05/21/18 [History] Clindamycin 900 MG/50 ML [Cleocin Premix 900 MG/50 ML] 900 mg IV Q8H 28 Days #1 bag 05/27/18 [Rx] Ferrous Sulfate 325 mg PO BIDWM tablet 05/27/18 [Rx] Fluticasone/Vilanterol [Breo Ellipta 100-25 Mcg INH] 1 puff IN DAILY 06/29/18 [History] Aspirin Enteric Coated [Aspirin EC] 325 mg PO DAILY 06/30/18 [History] Colestipol HCl [Colestid] 2 gm PO BID 06/30/18 [History] Docusate [Colace] 100 mg PO BID PRN 06/30/18 [History] Fenofibrate [Tricor] 54 mg PO DAILY 06/30/18 [History] Ipratropium/Albuterol Neb [Duoneb] 3 ml IH Q4HR PRN 07/03/18 [History] Lactobacillus Acidophilus [Acidophilus Lactobacillus] 1 cap PO BID 07/03/18 [History] Ondansetron Oral Soln [Zofran Oral Soln] 4 mg PO Q6H PRN 07/03/18 [History] Tramadol HCl [Ultram] 50 mg PO TID 3 Days #9 tablet 07/03/18 [Rx] hydrALAZINE [HydrALAZINE] 25 mg PO TID tablet 07/03/18 [Rx] Allergies/Adverse Reactions: Allergy/AdvReac Type Severity Reaction Status Date / Time Diclofenac [From Arthrotec] Allergy See Verified 06/07/18 23:15 Comments misoprostol [From Arthrotec] Allergy See Verified 06/07/18 23:15 Comments Kghsfeg-Gfw-Oav Reductase Allergy See Verified 06/07/18 23:15 Inhibitor Comments morphine AdvReac Agitated Verified 06/07/18 23:15 Date of admission: 06/30/18 11:29 Primary care physician: PCP NONE Consults: 06/29/18 17:08 Consult to Surgery [CONS] Routine Consulting Provider: Lonny Vail Reason for Consult: GI bleed in pt with hx of colon CA Call Completed: Yes Discharging clinician: Timmy Muñoz - Constitutional Vitals: Temp Pulse Resp BP Pulse Ox 97.4 F L 83 16 153/84 97 07/03/18 07:46 07/03/18 07:46 07/03/18 08:28 07/03/18 08:28 07/03/18 08:28 General appearance: Present: A&O X 3, no acute distress Exam: General: awake, alert, oriented, no acute distress, answers qeustions appropriately Cardiovascular: RRR, no murmurs, rubs or gallops Pulmonary: clear to auscultation bialterally, no wheezes, rales, rhonchi GI: normoactive bowel sounds, no guarding or rigidity. Skin: warm, dry, intact Musculoskeletal: no pitting edema, able to get self out of bed with help. Left arm has dorsal aspect of hand with a non-tender, partially fluctuant, non-mobile mass. There is no erythema, it is not tender. - Patient Status Disposition: Transfer SNF Condition: Undetermined Functional capacity at discharge: wheelchair bound Overall status at discharge: patient is progressing back to baseline - Discharge Instructions Follow Up With: NONE,PCP [Primary Care Provider] - - Diet and Activity Activity: as per physical therapy Diet: advance to your usual diet
[2018-07-03] MEDS ORDERED: hydrALAZINE 25 MG TABLET PO SCH (15:00)
--- NOTE | 2018-07-03 15:17 | Physician Discharge Referral ---
ExtendedCare Referral Info Institutional Level of Care: Skilled - Diagnosis (1) GI bleeding Priority: Primary Status: Acute (2) Hypertension Priority: Secondary Status: Chronic (3) Normocytic anemia Priority: Secondary Status: Acute (4) CKD (chronic kidney disease) stage 3, GFR 30-59 ml/min Priority: Secondary Status: Acute (5) Diverticulosis Priority: Secondary Status: Acute (6) History of TIA (transient ischemic attack) Priority: Secondary Status: Acute (7) Left upper extremity deep vein thrombosis Priority: Secondary Status: Acute - Transfer Medications Prescriptions: Tramadol HCl [Ultram] 50 mg PO TID 3 Days #9 tablet Home Medications: Duloxetine HCl [Cymbalta] 60 mg PO DAILY 09/08/15 [History] Amitriptyline [Elavil] 50 mg PO HS 03/29/18 [History] Fluticasone/Salmeterol [Advair 250-50 Diskus] 1 puff IH BID 03/29/18 [History] Levothyroxine [Synthroid] 100 mcg PO DAILY 03/29/18 [History] Pantoprazole Sodium 40 mg PO DAILY 04/12/18 [History] Cholecalciferol (D-3) [Vitamin D] 2,000 unit PO DAILY 05/21/18 [History] Gabapentin [Neurontin] 600 mg PO BID 05/21/18 [History] Clindamycin 900 MG/50 ML [Cleocin Premix 900 MG/50 ML] 900 mg IV Q8H 28 Days #1 bag 05/27/18 [Rx] Ferrous Sulfate 325 mg PO BIDWM tablet 05/27/18 [Rx] Fluticasone/Vilanterol [Breo Ellipta 100-25 Mcg INH] 1 puff IN DAILY 06/29/18 [History] Aspirin Enteric Coated [Aspirin EC] 325 mg PO DAILY 06/30/18 [History] Colestipol HCl [Colestid] 2 gm PO BID 06/30/18 [History] Docusate [Colace] 100 mg PO BID PRN 06/30/18 [History] Fenofibrate [Tricor] 54 mg PO DAILY 06/30/18 [History] Ipratropium/Albuterol Neb [Duoneb] 3 ml IH Q4HR PRN 07/03/18 [History] Lactobacillus Acidophilus [Acidophilus Lactobacillus] 1 cap PO BID 07/03/18 [History] Ondansetron Oral Soln [Zofran Oral Soln] 4 mg PO Q6H PRN 07/03/18 [History] Tramadol HCl [Ultram] 50 mg PO TID 3 Days #9 tablet 07/03/18 [Rx] hydrALAZINE [HydrALAZINE] 25 mg PO TID tablet 07/03/18 [Rx] Allergies/Adverse Reactions: Allergy/AdvReac Type Severity Reaction Status Date / Time Diclofenac [From Arthrotec] Allergy See Verified 06/07/18 23:15 Comments misoprostol [From Arthrotec] Allergy See Verified 06/07/18 23:15 Comments Hyfgrcn-Him-Grb Reductase Allergy See Verified 06/07/18 23:15 Inhibitor Comments morphine AdvReac Agitated Verified 06/07/18 23:15 - Respiratory Orders Smoking Cessation: Smoking cessation has been advised. For more information, call the [place] Tobacco Quit Line at 9-979-LICZ-NOW. - Lab Orders Lab Orders: CBC - Advance Directives Code Status: Full Code - Rehabiliation Orders Rehab Orders: Evaluation for Physical Therapy, Evaluation for Occupational Therapy - Treatments Skin tear care topically daily PRN per policy, May check for fecal impaction rectally daily PRN - Diet Orders Cardiac (high fiber diet) CERTIFICATION: I certify that the transfer of the above named patient to an Extended Care Facility is necessary for the continuing treatment of the diagnosis listed. The above information is true and accurate reflection of patient's current condition. Confidential - Redisclosure prohibited without a patient's written consent.
[2018-07-03] MEDS ORDERED: Lactobacillus 1 EACH CAP.SPRINK PO SCH (21:00)
[2018-07-03] MEDS ORDERED: Gabapentin 300 MG CAPSULE PO SCH (21:00)
[2018-07-03] MEDS ORDERED: NON-FORMULARY MEDICATION 1 EACH EACH (Fluticasone/Salmeterol [Advair 250-50 Diskus] 1 PUFF IH SCH (21:00)
[2018-07-04] MEDS ORDERED: Cholecalciferol (D-3) 1,000 UNIT TABLET PO SCH (09:00)
[2018-07-04] MEDS ORDERED: Fenofibrate 54 MG TABLET PO SCH (09:00)
[2018-07-04] MEDS ORDERED: NON-FORMULARY MEDICATION 1 EACH EACH (Fluticasone/Vilanterol [Breo Ellipta 100-25 Mcg Inh] IN SCH (09:00)
[2018-07-04] MEDS ORDERED: NON-FORMULARY MEDICATION 1 EACH EACH (Pantoprazole Sodium [Pantoprazole Sodium] 40 MG) PO SCH (09:00)
== END 2018-07-03 18:12 | DRG 378 ==
LOC: 3ANU → SUATTDRO 14:23
PROVIDERS: ADMIT Internal Medicine; ATTEND Internal Medicine

== ENCOUNTER 2018-07-26 10:19 | Inpatient (IN) ==
--- NOTE | 2018-07-26 10:22 | Emergency Department Note ---
Disposition Clinical Impression: Cellulitis of left knee GI bleed Qualifiers: GI bleed type/associated pathology: unspecified gastrointestinal hemorrhage type Qualified Code(s): K92.2 - Gastrointestinal hemorrhage, unspecified Disposition: Admitted As Inpatient Condition: Fair Referrals: NONE,PCP [Primary Care Provider] - Time of Disposition: 13:07 General Adult HPI - General Stated complaint: abnormal lab Time Seen by Provider: 07/26/18 10:21 Source: patient Mode of arrival: EMS Limitations: no limitations Nursing Notes Reviewed: Yes Vital Signs Reviewed: Yes - History of Present Illness HPI Narrative: Patient is an 82-year-old female with a past medical history of COPD, GERD, GI bleed, colectomy, and left knee replacement presents to the emergency department for evaluation after an abnormal lab value which was a hemoglobin of 5. Patient states over the past 23 weeks she has had exertional dyspnea and she also required nasal cannula oxygen last night for feeling short of breath. States she has a baseline shortness of breath however has been worse than usual she has had more difficulty performing her daily activities. She comes from a residential facility in which she is undergoing physical therapy after having a left knee replacement. States she currently follows along with her orthopedic surgeon for the left knee there is concern that there is cellulitis present due to swelling and erythema in which she has been on clindamycin for. 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 She denies any other symptoms such as fevers, cough, congestion, chest pain, abdominal pain or diarrhea. She does admit to 2 bloody stools at the beginning of this week on Sunday. States she is also had intermittent dark stools since that time however she is on a iron supplements for chronic anemia. - Related Data Home Medications Medication Instructions Recorded Confirmed Duloxetine HCl [Cymbalta] 60 mg PO DAILY 09/08/15 07/03/18 Amitriptyline [Elavil] 50 mg PO HS 03/29/18 07/03/18 Fluticasone/Salmeterol [Advair 1 puff IH BID 03/29/18 07/03/18 250-50 Diskus] Levothyroxine [Synthroid] 100 mcg PO DAILY 03/29/18 07/03/18 Pantoprazole Sodium 40 mg PO DAILY 04/12/18 07/03/18 Cholecalciferol (D-3) [Vitamin D] 2,000 unit PO DAILY 05/21/18 07/03/18 Gabapentin [Neurontin] 600 mg PO BID 05/21/18 07/03/18 Fluticasone/Vilanterol [Breo 1 puff IN DAILY 06/29/18 07/03/18 Ellipta 100-25 Mcg INH] Aspirin Enteric Coated [Aspirin EC] 325 mg PO DAILY 06/30/18 07/03/18 Colestipol HCl [Colestid] 2 gm PO BID 06/30/18 07/03/18 Docusate [Colace] 100 mg PO BID PRN 06/30/18 07/03/18 Fenofibrate [Tricor] 54 mg PO DAILY 06/30/18 07/03/18 Ipratropium/Albuterol Neb [Duoneb] 3 ml IH Q4HR PRN 07/03/18 07/03/18 Lactobacillus Acidophilus 1 cap PO BID 07/03/18 07/03/18 [Acidophilus Lactobacillus] Ondansetron Oral Soln [Zofran Oral 4 mg PO Q6H PRN 07/03/18 07/03/18 Soln] Previous Rx's Medication Instructions Recorded Clindamycin 900 MG/50 ML [Cleocin 900 mg IV Q8H 28 Days #1 bag 05/27/18 Premix 900 MG/50 ML] Ferrous Sulfate 325 mg PO BIDWM tablet 05/27/18 hydrALAZINE [HydrALAZINE] 25 mg PO TID tablet 07/03/18 Allergies Allergy/AdvReac Type Severity Reaction Status Date / Time Diclofenac [From Arthrotec] Allergy See Verified 06/07/18 23:15 Comments misoprostol [From Arthrotec] Allergy See Verified 06/07/18 23:15 Comments Xetxrxv-Ima-Ree Reductase Allergy See Verified 06/07/18 23:15 Inhibitor Comments morphine AdvReac Agitated Verified 06/07/18 23:15 All systems ED: reviewed and negative except as stated. Review of Systems: As Per HPI Constitutional: Denies: fever ENT ED: Denies: congestion Cardiovascular: Reports: dyspnea on exertion, edema. Denies: chest pain, palpitations, syncope Respiratory: Reports: dyspnea. Denies: cough, wheezes Gastrointestinal: Reports: melena, hematochezia. Denies: abdominal pain, nausea, vomiting, diarrhea, constipation, hematemesis Genitourinary: Denies: urgency, dysuria Neurological: Denies: weakness, numbness, paresthesias Past Medical History - Past Medical History Attestation: Yes The following information was validated with the patient. 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 Absent: tenderness - Respiratory Respiratory exam: Present: normal lung sounds bilaterally. Absent: respiratory distress, wheezes - Cardiovascular Cardiovascular exam: Present: regular rate, normal rhythm, normal heart sounds - Abdominal Exam Abdominal exam: Present: soft, Non-Tender, normal bowel sounds - Rectal Exam Rectal exam: Present: normal inspection, normal rectal tone. Absent: black sto ol, bloody stool - Extremities Exam Extremities exam: Present: other (edema of the left knee with overlying erythema more concentrated on the medial aspect. No crepitance or fluctuance. No drainage. Good pulses in bilateral lower extremities as well as sensation. ) - Neurological Exam Neurological exam: Present: alert, oriented X3 - Psychiatric Psychiatric exam: Present: normal affect, normal mood - Skin Skin exam: Present: warm, dry, intact Course Course Narrative: Patient was recently admitted in June 2018 for rectal bleeding. At that time she was on aspirin and Plavix. Those medicines were stopped. She had an EGD that was benign as well as colonoscopy that showed widespread diverticulosis with no active bleeding. At that time the patient had a hemoglobin of 9. 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 It appears that upon discharge the patient was restarted on her aspirin and Plavix. Upon review of the patient's recent admissions and lab work and does appear that she has bee n trending downwards as far as her hemoglobin. It does appear that she was restarted on her anticoagulants prior to discharge. Patient's hemoglobin lab was repeated in the emergency department showed hemoglobin of 6.0. She is typed and screened as well as ordered 1 unit of packed red blood cell. - Reevaluation(s) Reevaluation #1: Patient except as the hospital by the hospitalist, Dr. Blair, for GI bleed and left knee cellulitis. Time: 13:07 Vital Signs Temperature 98.7 F 07/26/18 10:23 Pulse Rate 83 07/26/18 10:23 Respiratory Rate 18 07/26/18 10:23 Blood Pressure 124/66 07/26/18 10:23 O2 Sat by Pulse Oximetry 94 07/26/18 10:23 Temperature 97.9 F 07/26/18 12:53 Pulse Rate 74 07/26/18 12:53 Respiratory Rate 20 07/26/18 12:53 Blood Pressure 125/64 07/26/18 12:53 O2 Sat by Pulse Oximetry 100 07/26/18 12:53 Oxygen Delivery Oxygen Delivery Room Air Medical Decision Making - [facility] Narrative Medical decision making narrative: Chest X-Ray 07/26/18 10:42 IMPRESSION: 1. Low lung volumes. No acute cardiopulmonary disease. 2. Moderate hiatal hernia. D/ / Elio Curry MD / Elio Curry MD Interpreting Provider: Elio Curry MD Knee CT 07/26/18 10:49 IMPRESSION: 1. Diffuse subcutaneous edema and anterior skin thickening may reflect cellulitis. 2. There is skin irregularity anterior at the level of the proximal tibia. There is attenuation of the underlying subcutaneous tissues which may reflect scarring. Phlegmonous change is felt less likely. An abscess is not identified. There is no soft tissue gas. 3. Prior left knee arthroplasty. The patella has been resected. D/ / 07/26/2018 12:18:16 Mumtaz Higgins MD / kenna Interpreting Provider: Mumtaz Higgins MD 40 hours: We will go admit her for her anemia. Patient's agreement this plan. We did order type and screen on her also. And if her blood completes we will go ahead and start that on her here. She is already on clindamycin for her knee. At this point I will not make any changes since she was seen by orthopedics for this also. - Medical Records Medical records reviewed: Yes I reviewed the patient's medical records. - Lab Data Lab results reviewed: Yes I reviewed the patient's lab results. Result diagrams: 07/26/18 10:35 07/26/18 10:35 Lab Results 07/26/18 07/26/18 07/26/18 Range/Units 10:35 10:35 10:35 WBC 5.6 (4.3-11.1) K/mcL RBC 2.22 L (3.82-4.97) M/mcL Hgb 6.0 L* (11.5-15.4) g/dL Hct 20.0 L (35.3-44.9) % MCV 90.1 (83.0-100.0) fL MCH 27.0 L (28.0-33.3) pg MCHC 30.0 L (31.6-35.5) g/dL RDW 17.2 H (11.5-14.5) % Plt Count 342 (140-400) K/mcL MPV 9.1 L (9.4-12.4) fL Immature Gran % 0.2 (0-4) % Seg Neutrophils % 68.4 % Lymphocytes % 20.8 % Monocytes % 7.2 % Eosinophils % 2.7 % Basophils % 0.7 % Neutrophils # 3.8 (1.6-8.9) K/mcL Lymphocytes # 1.2 (0.6-4.6) K/mcL Monocytes # 0.4 (0.0-1.3) K/mcL Eosinophils # 0.2 (0.0-0.6) K/mcL Basophils # 0.0 (0.0-0.2) K/mcL Sodium 139 (136-145) mEq/L Potassium 4.4 (3.5-5.1) mEq/L Chloride 108 H (98-107) mEq/L Carbon Dioxide 25 (23-29) mEq/L BUN 22 (8-23) mg/dL Creatinine 1.14 (0.60-1.20) mg/dL Est GFR ( Amer) 55 L (> 60) Est GFR (Non-Af Amer) 46 L (> 60) BUN/Creatinine Ratio 19 (6-26) Glucose 99 (70-105) mg/dL Calculated Osmolality 291 (280-300) Calcium 8.2 L (8.6-10.3) mg/dL Total Bilirubin 0.2 L (0.3-1.0) mg/dL AST 11 L (13-39) Units/L ALT 5 L (7-52) Units/L Alkaline Phosphatase 51 (34-104) Units/L Troponin I < 0.03 (< 0.04) ng/mL B-Natriuretic Peptide (Less than 100) pg/mL Serum Total Protein 6.3 L (6.4-8.9) g/dL Albumin 3.3 L (3.5-5.7) g/dL Globulin 3.0 (2.4-3.5) g/dL Albumin/Globulin Ratio 1.1 (1.1-2.2) Ur Specimen Adequacy Urine Color (Yellow) Urine Clarity (Clear) Urine pH (5.0-8.0) pH Units Ur Specific [place] (1.010-1.025) Urine Protein (Neg-Trace) mg/dL Urine Glucose (UA) (Normal) mg/dL Urine Ketones (Negative) mg/dL Urine Blood (Negative) Urine Nitrite (Negative) Urine Bilirubin (Negative) Urine Urobilinogen (Normal) mg/dL Ur Leukocyte Esterase (Negative) Ur Culture Indicated? (NO) Blood Type AB POSITIVE Antibody Screen NEGATIVE Crossmatch See Detail 07/26/18 07/26/18 Range/Units 10:35 10:51 WBC (4.3-11.1) K/mcL RBC (3.82-4.97) M/mcL Hgb (11.5-15.4) g/dL Hct (35.3-44.9) % MCV (83.0-100.0) fL MCH (28.0-33.3) pg MCHC (31.6-35.5) g/dL RDW (11.5-14.5) % Plt Count (140-400) K/mcL MPV (9.4-12.4) fL Immature Gran % (0-4) % Seg Neutrophils % % Lymphocytes % % Monocytes % % Eosinophils % % Basophils % % Neutrophils # (1.6-8.9) K/mcL Lymphocytes # (0.6-4.6) K/mcL Monocytes # (0.0-1.3) K/mcL Eosinophils # (0.0-0.6) K/mcL Basophils # (0.0-0.2) K/mcL Sodium (136-145) mEq/L Potassium (3.5-5.1) mEq/L Chloride (98-107) mEq/L Carbon Dioxide (23-29) mEq/L BUN (8-23) mg/dL Creatinine (0.60-1.20) mg/dL Est GFR ( Amer) (> 60) Est GFR (Non-Af Amer) (> 60) BUN/Creatinine Ratio (6-26) Glucose (70-105) mg/dL Calculated Osmolality (280-300) Calcium (8.6-10.3) mg/dL Total Bilirubin (0.3-1.0) mg/dL AST (13-39) Units/L ALT (7-52) Units/L Alkaline Phosphatase (34-104) Units/L Troponin I (< 0.04) ng/mL B-Natriuretic Peptide 522 H (Less than 100) pg/mL Serum Total Protein (6.4-8.9) g/dL Albumin (3.5-5.7) g/dL Globulin (2.4-3.5) g/dL Albumin/Globulin Ratio (1.1-2.2) Ur Specimen Adequacy See below A Urine Color Yellow (Yellow) Urine Clarity Clear (Clear) Urine pH 5.5 (5.0-8.0) pH Units Ur Specific [place] 1.014 (1.010-1.025) Urine Protein Negative (Neg-Trace) mg/dL Urine Glucose (UA) Normal (Normal) mg/dL Urine Ketones Negative (Negative) mg/dL Urine Blood Negative (Negative) Urine Nitrite Negative (Negative) Urine Bilirubin Negative (Negative) Urine Urobilinogen Normal (Normal) mg/dL Ur Leukocyte Esterase Negative (Negative) Ur Culture Indicated? NO (NO) Blood Type Antibody Screen Crossmatch - Radiology Data Radiology results reviewed: Yes I reviewed the patient's radiology results. Chest X-Ray 07/26/18 10:42 IMPRESSION: 1. Low lung volumes. No acute cardiopulmonary disease. 2. Moderate hiatal hernia. D/ / Elio Curry MD / Elio Curry MD Interpreting Provider: Elio Curry MD Knee CT 07/26/18 10:49 IMPRESSION: 1. Diffuse subcutaneous edema and anterior skin thickening may reflect cellulitis. 2. There is skin irregularity anterior at the level the proximal tibia. There is attenuation of the underlying subcutaneous tissues which may reflect scarring. Phlegmonous change is felt less likely. An abscess is not identified. There is no soft tissue gas. 3. Prior left knee arthroplasty. The patella has been resected. D/ / Mumtaz Higgins MD / Mumtaz Higgins MD Interpreting Provider: Mumtaz Higgins MD - EKG Data EKG #1 EKG attestation: Yes I reviewed and interpreted this EKG. EKG results narrative: EKG done at 10:28 shows sinus rhythm at a rate of 85 bpm. Normal axis. Intervals within normal limits. No signs of ischemia. No STEMI Critical Care Time Critical Care Time: Yes Total Critical Care Time: 35 Attestation: Excluding any separately billable procedures. Attestation Statement - Attestation Attestation: This documentation is done with the assistance of Dragon dictation. Despite efforts made to ensure accuracy, there may be inaccuracies in hide spreader or spelling and typographical errors. I examined this patient and my medical decision-making was reviewed with the Resident Physician. I agree with the documented findings, disposition and treatment plan as described except to the extent set forth below. Patient seen and evaluated by Dr. Tomlinson and myself, I agree with his evaluation and management plan, supervised the care the patient's stay. Patient comes in today due to labs drawn as an outpatient with a low hemoglobin. She has had a recent knee surgery that had cellulitis. She is also redness around the knee. She has some edema in the lower extremities bilaterally. She has also had some dyspnea which may be related to fluid that may be related to the fact she has a low hemoglobin. Were going to check labs on her to get her feeling better she is on clindamycin now for wound infection. No fevers here. Then reassess. If her creatinine is okay we may scan this leg.
[2018-07-26] MEDS ORDERED: Isovue-370 500 ML INFUS..BTL IV ONE (10:49)
[2018-07-26 11:05] LABS: Basophils % 0.7 %; Eosinophils # 0.2 K/mcL (0.0-0.6); Eosinophils % 2.7 %; Immature Granulocytes % 0.2 % (0-4); Lymphocytes # 1.2 K/mcL (0.6-4.6); Lymphocytes % 20.8 %; Mean Corpuscular Volume 90.1 fL (83.0-100.0); Mean Platelet Volume 9.1 fL (9.4-12.4); Monocytes # 0.4 K/mcL (0.0-1.3); Monocytes % 7.2 %; Neutrophils # 3.8 K/mcL (1.6-8.9); Platelet Count 342 K/mcL (140-400); Red Blood Count 2.22 M/mcL (3.82-4.97); Red Cell Distribution Width 17.2 % (11.5-14.5); Segmented Neutrophils % 68.4 %
[2018-07-26 11:14] LABS: Bilirubin,Urine Negative (Negative); Blood,Urine Negative (Negative); Clarity,Urine Clear (Clear); Color,Urine Yellow (Yellow); Glucose,Urine (UA) Normal (Normal); Ketones,Urine Negative (Negative); Leukocyte Esterase,Urine Negative (Negative); Nitrite,Urine Negative (Negative); PH,Urine 5.5 pH Units (5.0-8.0); Protein,Urine Negative (Neg-Trace); Specific Gravity,Urine 1.014 (1.010-1.025); Urobilinogen,Urine Normal (Normal)
[2018-07-26 11:26] LABS: Alanine Aminotransferase 5 Units/L (7-52); Albumin 3.3 g/dL (3.5-5.7); Albumin/Globulin Ratio 1.1 (1.1-2.2); Alkaline Phosphatase 51 Units/L (34-104); Aspartate Amino Transferase 11 Units/L (13-39); BUN/Creatinine Ratio 19 (6-26); Bilirubin,Total 0.2 mg/dL (0.3-1.0); Blood Urea Nitrogen 22 mg/dL (8-23); Calcium 8.2 mg/dL (8.6-10.3); Carbon Dioxide 25 mEq/L (23-29); Chloride 108 mEq/L (98-107); Glucose 99 mg/dL (70-105); Osmolality,Calculated 291 (280-300); Potassium 4.4 mEq/L (3.5-5.1); Sodium 139 mEq/L (136-145); Total Protein 6.3 g/dL (6.4-8.9); eGFR For Non-African Americans 46 (> 60)
[2018-07-26 11:27] LABS: Troponin I < 0.03 ng/mL (< 0.04)
[2018-07-26] MEDS ORDERED: 0.9 % Sodium Chloride 1,000 ML ONE (12:56)
--- NOTE | 2018-07-26 15:49 | Internal Med History&Physical ---
Date of Encounter: 07/26/18 Time of Encounter: 16:08 Internal Medicine - H&P: HPI Chief complaint: gi bleed Admitted From: Emergency Dept Plans for Post Hospital Care: Transfer Intermediate Facility History of present illness: Ms. Calero is a 82 year old female Patient with history of colon cancer had colectomy in the past, history of diverticulosis, recurrent GI bleed, COPD, GERD, high cholesterol, hypertension, TIA and CK D patient was just in the hospital about 2 weeks ago with GI bleed seen by general surgery underwent colonoscopy which was unremarkable showing non bleeding diverticulosis and patient [facility] where she undergoing rehabilitation for recent hip replacement patient noted intermittent dark stool labs drawn from [facility] shows hemoglobin of 5 and then she was sent to the emergency room she has symptoms of exertional shortness of breath and fatigue and malaise the ER hemoglobin is 6 since being given some blood transfusion and admitted for follow evaluation. Denies any chest pain Also noted to have left knee cellulitis from recent surgical site Past Med Surg Social Fam HX - Past Medical History Source: old records reviewed Medical history: arthritis, cancer, COPD, GERD, hyperlipidemia, hypertension, TIA Additional medical history: stage III renal disease. hypothyroidism. malignant neoplasm of transverse colon. anemia Psychiatric history: anxiety, depression, panic disorder - Past Surgical History Surgical History: appendectomy, , cancer surgery, cholecystectomy, colectomy, hysterectomy, other Additional surgical history: Left Tibial Loosening with Total left knee replacement. - Social History Smoking Status: Never smoker Smokeless Tobacco Status: No Alcohol use: none Drug use: none - Family History Mother Adopted: No Family Member Ethnicity: Non- Living Status: Hx Family Cardiac Disorders: No Hx Family Respiratory Disorders: No Hx Family Cancer: Yes (breast, colon) Hx Family GI Disorders: No Hx Family Endocrine Disorder: No Hx Family Neuromuscular Disorders: No Hx Family Neurologic Disorders: No Hx Family HEENT Disorders: No Hx Family Autoimmune Disorders: No Internal Medicine - H&P: Meds RX: Duloxetine HCl [Cymbalta] 60 mg PO DAILY 09/08/15 [History] RX: Amitriptyline [Elavil] 50 mg PO HS 03/29/18 [History] RX: Levothyroxine [Synthroid] 100 mcg PO DAILY 03/29/18 [History] RX: Pantoprazole Sodium 40 mg PO DAILY 04/12/18 [History] RX: Cholecalciferol (D-3) [Vitamin D] 2,000 unit PO DAILY 05/21/18 [History] RX: Gabapentin [Neurontin] 600 mg PO BID 05/21/18 [History] RX: Ferrous Sulfate 325 mg PO BIDWM tablet 05/27/18 [Rx] RX: Fluticasone/Vilanterol [Breo Ellipta 100-25 Mcg INH] 1 puff IN DAILY 06/29/18 [History] RX: Aspirin Enteric Coated [Aspirin EC] 325 mg PO DAILY 06/30/18 [History] RX: Colestipol HCl [Colestid] 2 gm PO BID 06/30/18 [History] RX: Docusate [Colace] 100 mg PO BID PRN 06/30/18 [History] RX: Fenofibrate [Tricor] 54 mg PO HS 06/30/18 [History] RX: Ipratropium/Albuterol Neb [Duoneb] 3 ml IH Q4HR PRN 07/03/18 [History] RX: Ondansetron Oral Soln [Zofran Oral Soln] 4 mg PO Q6H PRN 07/03/18 [History] RX: hydrALAZINE [HydrALAZINE] 25 mg PO TID tablet 07/03/18 [Rx] ALPRAZolam [Xanax 0.25 MG Tablet] 0.25 mg PO TID PRN 07/26/18 [History] Acetaminophen [Tylenol] 500 mg PO Q8H PRN 07/26/18 [History] Albuterol Sulfate [Ventolin Hfa] 2 puff IH QID PRN 07/26/18 [History] Clindamycin HCl [Cleocin HCl] 300 mg PO QID 07/26/18 [History] Phenylephrine HCl/[place] Butter [Hemorrhoidal Suppositories] 1 supp RC DAILY PRN 07/26/18 [History] RX: Melatonin 5 mg PO HS PRN 07/26/18 [History] Allergy/AdvReac Type Severity Reaction Status Date / Time Diclofenac [From Arthrotec] Allergy See Verified 07/26/18 13:53 Comments misoprostol [From Arthrotec] Allergy See Verified 07/26/18 13:53 Comments Dmusneb-Hxa-Fzz Reductase Allergy See Verified 07/26/18 13:53 Inhibitor Comments morphine AdvReac Agitated Verified 07/26/18 13:53 All Systems PM: A 10-system review of systems was performed and is negative for pertinent findings except as documented above in the HPI. - Constitutional Vitals: Temp Pulse Resp BP Pulse Ox 97.9 F 82 20 126/68 99 07/26/18 12:53 07/26/18 13:15 07/26/18 13:15 07/26/18 13:15 07/26/18 14:33 General appearance: Present: A&O X 3 Exam: done - Eye Eye exam: Present: PERRL, conjuntiva pink, sclera anicteric Pupils: Present: PERRL - Neck Neck exam general surgery: Present: supple, trachea midline. Absent: lymphadenopathy - Respiratory Respiratory exam: Present: decreased breath sounds, CTAB. Absent: accessory muscle use, rales, rhonchi, wheezes - Cardiovascular Cardiovascular exam: Present: RRR, +S1, +S2. Absent: diastolic murmur, gallop, rubs, systolic murmur - GI/Abdominal GI/Abdominal exam: Present: normal bowel sounds, soft, no peritoneal signs. Absent: distended, tenderness - Extremities Exam Extremities exam: Present: calf tenderness, cyanotic, pedal edema, tenderness, warm, radial pulses palpable and symmetrical Internal Med - H&P Results - Labs CBC & Chem 7: 07/26/18 10:35 07/26/18 10:35 Labs: Short CBC 07/26/18 Range/Units 10:35 WBC 5.6 (4.3-11.1) K/mcL Hgb 6.0 L* (11.5-15.4) g/dL Hct 20.0 L (35.3-44.9) % Plt Count 342 (140-400) K/mcL Neutrophils # 3.8 (1.6-8.9) K/mcL BMP 07/26/18 10:35 Sodium 139 Potassium 4.4 Chloride 108 H Carbon Dioxide 25 BUN 22 Creatinine 1.14 Glucose 99 Calcium 8.2 L Cardiac Enzymes 07/26/18 Range/Units 10:35 Troponin I < 0.03 (< 0.04) ng/mL Liver Function 07/26/18 Range/Units 10:35 Total Bilirubin 0.2 L (0.3-1.0) mg/dL AST 11 L (13-39) Units/L ALT 5 L (7-52) Units/L Alkaline Phosphatase 51 (34-104) Units/L Albumin 3.3 L (3.5-5.7) g/dL Urine 07/26/18 Range/Units 10:51 Urine Color Yellow (Yellow) Urine Clarity Clear (Clear) Urine pH 5.5 (5.0-8.0) pH Units Ur Specific [place] 1.014 (1.010-1.025) Urine Protein Negative (Neg-Trace) mg/dL Urine Glucose (UA) Normal (Normal) mg/dL - Impressions ITS Impressions Chest X-Ray 07/26/18 10:42 IMPRESSION: 1. Low lung volumes. No acute cardiopulmonary disease. 2. Moderate hiatal hernia. D/ / Elio Curry MD / Elio Curry MD Interpreting Provider: Elio Curry MD Knee CT 07/26/18 10:49 IMPRESSION: 1. Diffuse subcutaneous edema and anterior skin thickening may reflect cellulitis. 2. There is skin irregularity anterior at the level of the proximal tibia. There is attenuation of the underlying subcutaneous tissues which may reflect scarring. Phlegmonous change is felt less likely. An abscess is not identified. There is no soft tissue gas. 3. Prior left knee arthroplasty. The patella has been resected. D/ / 07/26/2018 12:18:16 Mumtaz Higgins MD / [facility] Interpreting Provider: Mumtaz Higgins MD - Assessment and plan (1) COPD (chronic obstructive pulmonary disease) Current Visit: Yes Status: Chronic Assessment and plan: no active wheezing Qualifiers: COPD type: emphysema Emphysema type: unspecified Qualified Code(s): J43.9 - Emphysema, unspecified (2) HTN (hypertension) Current Visit: Yes Status: Chronic Assessment and plan: well controlled Qualifiers: Hypertension type: essential hypertension Qualified Code(s): I10 - Essential (primary) hypertension (3) Cellulitis of left knee Current Visit: Yes Status: Acute Assessment and plan: will continue on vanco (4) GI bleed Current Visit: Yes Status: Acute Assessment and plan: recurrent gi bleed discussed with GI npo after md prep for egd nd colonoscopy in am and give 3 units of bleed Qualifiers: GI bleed type/associated pathology: melena Qualified Code(s): K92.1 - Melena (5) Acute blood loss anemia Current Visit: No Status: Acute Assessment and plan: with severe anemia - Time Spent With Patient Total time spent is greater than 50% in coordination of care (as documented) at patient's floor/unit and/or counseling patient: Greater than 35 minutes
[2018-07-26] MEDS ORDERED: Naloxone 0.4 MG/ML INJ IVP PRN (16:10)
[2018-07-26] MEDS ORDERED: Melatonin 3 MG TABLET PO PRN (16:15)
[2018-07-26] MEDS ORDERED: COCOA BUTTER RC PRN (16:15)
[2018-07-26] MEDS ORDERED: ALPRAZolam 0.25 MG TABLET PO PRN (16:15)
[2018-07-26] MEDS ORDERED: Ipratropium/Albuterol Neb 3 ML IH PRN (16:15)
[2018-07-26] MEDS ORDERED: PHENYLEPHRINE HCL RC PRN (16:15)
[2018-07-26] MEDS ORDERED: SODIUM CHLORIDE/NAHCO3/KCL/PEG 4,000 ML SOLN.RECON PO ONE (16:21)
[2018-07-26 16:45] LABS: Eosinophils # 0.1 K/mcL (0.0-0.6); Eosinophils % 3.5 %; Hemoglobin 6.3 g/dL (11.5-15.4); Immature Granulocytes % 0.5 % (0-4); Lymphocytes # 0.9 K/mcL (0.6-4.6); Lymphocytes % 22.6 %; Mean Corpuscular HGB Conc 31.5 g/dL (31.6-35.5); Mean Corpuscular Volume 88.9 fL (83.0-100.0); Mean Platelet Volume 8.7 fL (9.4-12.4); Monocytes # 0.4 K/mcL (0.0-1.3); Monocytes % 8.7 %; Neutrophils # 2.6 K/mcL (1.6-8.9); Platelet Count 297 K/mcL (140-400); Red Blood Count 2.25 M/mcL (3.82-4.97); Red Cell Distribution Width 17.5 % (11.5-14.5); Segmented Neutrophils % 63.7 %
--- NOTE | 2018-07-26 16:45 | Electrocardiograph Report ---
[facility] [employer] Test Date: 2018-07-26 Pat Name: Maye Calero Department: EXAM4 Room: 2A31 Gender: F Behavioral Health Professional: : 1935 Requested By: Enrico Tomlinson Order Number: [id number] Reading MD: Steven Vazquez Measurements Intervals [place] Rate: 85 P: 30 CO: 183 QRS: -17 QRSD: 96 T: 60 QT: 384 QTc: 457 Interpretive Statements Sinus rhythm Borderline left axis deviation Low voltage, precordial leads Abnormal R-wave progression, early transition Electronically Signed On 07-26-2018 16:43:48 EST by Steven Vazquez
[2018-07-26] MEDS ORDERED: 0.9 % Sodium Chloride 250 ML ONE ×2 (16:59→22:33)
[2018-07-26] MEDS: Gabapentin 300 MG CAPSULE PO SCH (20:17)
[2018-07-26] MEDS: hydrALAZINE 25 MG TABLET PO SCH (20:17)
[2018-07-26] MEDS: Colestipol Hcl [Colestid] 2 GM PO SCH (20:32)
[2018-07-26] MEDS ORDERED: Fenofibrate 54 MG TABLET PO SCH (21:00)
[2018-07-27] MEDS ORDERED: 0.9 % Sodium Chloride 250 ML ONE (02:10)
[2018-07-27 07:16] LABS: INR 1.1; Prothrombin Time 12.5 Seconds (9.4-12.1)
--- NOTE | 2018-07-27 07:25 | Anesthesia Evaluation PreOp ---
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 History: TIA Other Medical History: Renal (CKD), Bleeding (RECURRENT GI BLEED, SEVERE ANEMIA), GERD, Other (ARTHRITIS) Anesthesia History: No Prior Anesthetic Complications, Past Anesthesia Alcohol Use: none Drug use: none Medications and Allergies Duloxetine HCl [Cymbalta] 60 mg PO DAILY 09/08/15 [History] Amitriptyline [Elavil] 50 mg PO HS 03/29/18 [History] Levothyroxine [Synthroid] 100 mcg PO DAILY 03/29/18 [History] Pantoprazole Sodium 40 mg PO DAILY 04/12/18 [History] Cholecalciferol (D-3) [Vitamin D] 2,000 unit PO DAILY 05/21/18 [History] Gabapentin [Neurontin] 600 mg PO BID 05/21/18 [History] Ferrous Sulfate 325 mg PO BIDWM tablet 05/27/18 [Rx] Fluticasone/Vilanterol [Breo Ellipta 100-25 Mcg INH] 1 puff IN DAILY 06/29/18 [History] Aspirin Enteric Coated [Aspirin EC] 325 mg PO DAILY 06/30/18 [History] Colestipol HCl [Colestid] 2 gm PO BID 06/30/18 [History] Docusate [Colace] 100 mg PO BID PRN 06/30/18 [History] Fenofibrate [Tricor] 54 mg PO HS 06/30/18 [History] Ipratropium/Albuterol Neb [Duoneb] 3 ml IH Q4HR PRN 07/03/18 [History] Ondansetron Oral Soln [Zofran Oral Soln] 4 mg PO Q6H PRN 07/03/18 [History] hydrALAZINE [HydrALAZINE] 25 mg PO TID tablet 07/03/18 [Rx] ALPRAZolam [Xanax 0.25 MG Tablet] 0.25 mg PO TID PRN 07/26/18 [History] Acetaminophen [Tylenol] 500 mg PO Q8H PRN 07/26/18 [History] Albuterol Sulfate [Ventolin Hfa] 2 puff IH QID PRN 07/26/18 [History] Clindamycin HCl [Cleocin HCl] 300 mg PO QID 07/26/18 [History] Melatonin 5 mg PO HS PRN 07/26/18 [History] Phenylephrine HCl/[place] Butter [Hemorrhoidal Suppositories] 1 supp RC DAILY PRN 07/26/18 [History] Allergy/AdvReac Type Severity Reaction Status Date / Time Diclofenac [From Arthrotec] Allergy See Verified 07/26/18 13:53 Comments misoprostol [From Arthrotec] Allergy See Verified 07/26/18 13:53 Comments Qzaumvu-Zrf-Fie Reductase Allergy See Verified 07/26/18 13:53 Inhibitor Comments morphine AdvReac Agitated Verified 07/26/18 13:53 Anesthesia Results - Labs 07/26/18 16:34 07/26/18 10:35
[2018-07-27 07:33] LABS: BUN/Creatinine Ratio 17 (6-26); Blood Urea Nitrogen 15 mg/dL (8-23); Calcium 8.5 mg/dL (8.6-10.3); Carbon Dioxide 22 mEq/L (23-29); Chloride 108 mEq/L (98-107); Chol/HDL Ratio 1.6 (0-4.9); Cholesterol 126 mg/dL (< 200); Glucose 108 mg/dL (70-105); HDL Cholesterol 81 mg/dL (40-59); LDL Cholesterol,Calculated 35 mg/dL (0-99); Osmolality,Calculated 289 (280-300); Potassium 4.3 mEq/L (3.5-5.1); Sodium 139 mEq/L (136-145); Triglycerides 48 mg/dL (< 150); eGFR For Non-African Americans > 60 (> 60)
[2018-07-27] MEDS ORDERED: Cholecalciferol (D-3) 1,000 UNIT TABLET PO SCH (09:00)
[2018-07-27] MEDS ORDERED: Fluticasone/Vilanterol [Breo Ellipta 100-25 Mcg Inh] IH SCH (09:00)
[2018-07-27] MEDS: Colestipol Hcl [Colestid] 2 GM PO SCH (09:27)
[2018-07-27] MEDS: hydrALAZINE 25 MG TABLET PO SCH ×2 (09:33→13:21)
[2018-07-27] MEDS: Gabapentin 300 MG CAPSULE PO SCH (09:33)
[2018-07-27 10:41] LABS: Hematocrit 31.2 % (35.3-44.9)
[2018-07-27 10:43] LABS: Hemoglobin 9.8 g/dL (11.5-15.4)
[2018-07-27 16:15] LABS: Hematocrit 30.2 % (35.3-44.9)
--- NOTE | 2018-07-27 16:34 | Discharge Summary ---
- NOTES TO OUTPATIENT PROVIDER Notes to Outpatient Provider: Patient with history of diverticulosis, who was admitted recently for GI bleed in late June, was admitted for anemia with Hb of 6. Was offered to undergo EGD/colonoscopy but patient refused while understanding the risk of missing possible GI source of bleeding. She received 4U of pRBC with appropriate increase in her Hb to 10. Remained hemodynamically stable. Previous EGD/colonoscopy report from Surgery reviewed: she is overdue for her outpatient follow up hence was emphasized the importance of follow up early next week. CBC for Sunday also ordered. During the last admission, Plavix was held and we will hold off on ASA as well this time. Follow up outpatient whether they can be safely resumed. Date of Encounter: 07/27/18 Time of Encounter: 16:00 - Discharge Diagnosis (1) GI bleed Priority: Primary Status: Acute Qualifiers: GI bleed type/associated pathology: melena Qualified Code(s): K92.1 - Melena (2) Cellulitis of left knee Priority: Secondary Status: Acute (3) HTN (hypertension) Priority: Secondary Status: Chronic Qualifiers: Hypertension type: essential hypertension Qualified Code(s): I10 - Essential (primary) hypertension Hospital course: Ms. Calero is a 82 year old female with history of diverticulosis, who was admitted recently for GI bleed in late June, was admitted for anemia with Hb of 6. Was offered to undergo EGD/colonoscopy but patient refused while understanding the risk of missing possible GI source of bleeding. She received 4U of pRBC with appropriate increase in her Hb to 10. Remained hemodynamically stable. Previous EGD/colonoscopy report from Surgery reviewed: she is overdue for her outpatient follow up hence was emphasized the importance of follow up early next week. CBC for Sunday also ordered. During the last admission, Plavix was held and we will hold off on ASA as well this time. Follow up outpatient whether they can be safely resumed. She was advised to return to the ED if she develops SOB, lightheadedness, or profuse bleeding per rectum or hematemesis. Discharge discussed with: patient, nurse - Time Spent with Patient Total time spent providing and/or coordinating discharge services: 34 mins - Discharge Medications Home Medications: Duloxetine HCl [Cymbalta] 60 mg PO DAILY 09/08/15 [History] Amitriptyline [Elavil] 50 mg PO HS 03/29/18 [History] Levothyroxine [Synthroid] 100 mcg PO DAILY 03/29/18 [History] Pantoprazole Sodium 40 mg PO DAILY 04/12/18 [History] Cholecalciferol (D-3) [Vitamin D] 2,000 unit PO DAILY 05/21/18 [History] Gabapentin [Neurontin] 600 mg PO BID 05/21/18 [History] Ferrous Sulfate 325 mg PO BIDWM tablet 05/27/18 [Rx] Fluticasone/Vilanterol [Breo Ellipta 100-25 Mcg INH] 1 puff IN DAILY 06/29/18 [History] Colestipol HCl [Colestid] 2 gm PO BID 06/30/18 [History] Docusate [Colace] 100 mg PO BID PRN 06/30/18 [History] Fenofibrate [Tricor] 54 mg PO HS 06/30/18 [History] Ipratropium/Albuterol Neb [Duoneb] 3 ml IH Q4HR PRN 07/03/18 [History] Ondansetron Oral Soln [Zofran Oral Soln] 4 mg PO Q6H PRN 07/03/18 [History] hydrALAZINE [HydrALAZINE] 25 mg PO TID tablet 07/03/18 [Rx] ALPRAZolam [Xanax 0.25 MG Tablet] 0.25 mg PO TID PRN 07/26/18 [History] Acetaminophen [Tylenol] 500 mg PO Q8H PRN 07/26/18 [History] Albuterol Sulfate [Ventolin Hfa] 2 puff IH QID PRN 07/26/18 [History] Clindamycin HCl [Cleocin HCl] 300 mg PO QID 07/26/18 [History] Melatonin 5 mg PO HS PRN 07/26/18 [History] Phenylephrine HCl/[place] Butter [Hemorrhoidal Suppositories] 1 supp RC DAILY PRN 07/26/18 [History] Allergies/Adverse Reactions: Allergy/AdvReac Type Severity Reaction Status Date / Time Diclofenac [From Arthrotec] Allergy See Verified 07/26/18 13:53 Comments misoprostol [From Arthrotec] Allergy See Verified 07/26/18 13:53 Comments Xnvndtn-Gpg-Kgy Reductase Allergy See Verified 07/26/18 13:53 Inhibitor Comments morphine AdvReac Agitated Verified 07/26/18 13:53 Date of admission: 07/26/18 18:04 Primary care physician: PCP NONE Consults: 07/26/18 14:32 Consult to Nutrition [CONS] Routine Comment: Consulting Provider: NUTRITION Reason for Dietary Consult: MST Score Consult to Rail Transportation Operator [CONS] Routine Reason for SW Consult: patient at [facility] 07/26/18 16:10 Consult for Pharmacy Education [CONS] Routine Reason for Consult: vanco dosing Time Notified: 16:15 Call Completed: No 07/26/18 16:12 Consult to Physician [CONS] Routine Consulting Provider: Amador Gonzalez Reason for Consult: gi bleed Time Notified: 16:13 Call Completed: Yes 07/26/18 16:13 Consult to Occupational Therapy [CONS] Routine Comment: Evaluate, develop and implement POC Reason for Consult: evaluate and treat Does patient have active BEDREST order?: No Is patient medically & hemodynamically stable?: Yes Consult to Physical Therapy [CONS] Routine Comment: Evaluate, develop and implement POC Reason for Consult: evaluate and treat Does patient have active BEDREST order?: No Is patient medically & hemodynamically stable?: Yes - Constitutional Vitals: Temp Pulse Resp BP Pulse Ox 98.3 F 72 17 162/81 95 07/27/18 11:09 07/27/18 11:09 07/27/18 11:09 07/27/18 11:09 07/27/18 11:09 General appearance: Present: A&O X 3 Exam: General: Alert and oriented, not in acute distress. Cardiovascular:Normal S1 & S2, No JVD. Pulse regular. Lungs: clear to auscultation, no wheezes/rales Abdomen:Soft, non-tender, no rigidity. Extremities:No deformity or swelling - Patient Status Disposition: Transfer SNF Condition: Fair Overall status at discharge: patient is progressing back to baseline - Discharge Instructions Instructions: Cellulitis (DC), Chronic Obstructive Pulmonary Disease (DC), Chronic Hypertension (DC), Acute Respiratory Distress Syndrome (DC) Follow Up With: NONE,PCP [Primary Care Provider] - Lonny Vail MD [Non-Partnered Physician] - Forms: ED Satisfaction Letter Additional Instructions: Outpatient appt with Surgery early next week H&H on 07/29 - Diet and Activity Activity: resume usual activities as tolerated Diet: advance to your usual diet
--- NOTE | 2018-07-27 16:42 | Physician Discharge Referral ---
ExtendedCare Referral Info Institutional Level of Care: Skilled - Diagnosis (1) GI bleed Priority: Primary Status: Acute (2) Cellulitis of left knee Priority: Secondary Status: Acute (3) HTN (hypertension) Priority: Secondary Status: Chronic - Transfer Medications Home Medications: Duloxetine HCl [Cymbalta] 60 mg PO DAILY 09/08/15 [History] Amitriptyline [Elavil] 50 mg PO HS 03/29/18 [History] Levothyroxine [Synthroid] 100 mcg PO DAILY 03/29/18 [History] Pantoprazole Sodium 40 mg PO DAILY 04/12/18 [History] Cholecalciferol (D-3) [Vitamin D] 2,000 unit PO DAILY 05/21/18 [History] Gabapentin [Neurontin] 600 mg PO BID 05/21/18 [History] Ferrous Sulfate 325 mg PO BIDWM tablet 05/27/18 [Rx] Fluticasone/Vilanterol [Breo Ellipta 100-25 Mcg INH] 1 puff IN DAILY 06/29/18 [History] Colestipol HCl [Colestid] 2 gm PO BID 06/30/18 [History] Docusate [Colace] 100 mg PO BID PRN 06/30/18 [History] Fenofibrate [Tricor] 54 mg PO HS 06/30/18 [History] Ipratropium/Albuterol Neb [Duoneb] 3 ml IH Q4HR PRN 07/03/18 [History] Ondansetron Oral Soln [Zofran Oral Soln] 4 mg PO Q6H PRN 07/03/18 [History] hydrALAZINE [HydrALAZINE] 25 mg PO TID tablet 07/03/18 [Rx] ALPRAZolam [Xanax 0.25 MG Tablet] 0.25 mg PO TID PRN 07/26/18 [History] Acetaminophen [Tylenol] 500 mg PO Q8H PRN 07/26/18 [History] Albuterol Sulfate [Ventolin Hfa] 2 puff IH QID PRN 07/26/18 [History] Clindamycin HCl [Cleocin HCl] 300 mg PO QID 07/26/18 [History] Melatonin 5 mg PO HS PRN 07/26/18 [History] Phenylephrine HCl/[place] Butter [Hemorrhoidal Suppositories] 1 supp RC DAILY PRN 07/26/18 [History] Allergies/Adverse Reactions: Allergy/AdvReac Type Severity Reaction Status Date / Time Diclofenac [From Arthrotec] Allergy See Verified 07/26/18 13:53 Comments misoprostol [From Arthrotec] Allergy See Verified 07/26/18 13:53 Comments Wdjyfpw-Lpb-Xln Reductase Allergy See Verified 07/26/18 13:53 Inhibitor Comments morphine AdvReac Agitated Verified 07/26/18 13:53 - Respiratory Orders Smoking Cessation: Smoking cessation has been advised. For more information, call the [place] Tobacco Quit Line at 8-914-TBNF-NOW. - Lab Orders Lab Orders: CBC (H&H on 07/29 and Surgery follow up early next week) CERTIFICATION: I certify that the transfer of the above named patient to an Extended Care Facility is necessary for the continuing treatment of the diagnosis listed. The above information is true and accurate reflection of patient's current condition. Confidential - Redisclosure prohibited without a patient's written consent.
[2018-07-27 17:14] VITALS: BP 151/75
== END 2018-07-27 19:06 | DRG 378 ==
LOC: 2ANU 10:19 → EMEROOARM 10:19 → 2ANU 14:00 → SUATTDRO 18:04
PROVIDERS: ADMIT Internal Medicine; ATTEND Internal Medicine

== ENCOUNTER 2019-12-18 16:13 | Inpatient (IN) ==
[2019-12-18] MEDS ORDERED: Ondansetron 4 MG/2 ML VIAL IVP PRN (18:39)
[2019-12-18] MEDS ORDERED: *HR* HYDROcodone/Acet 5/325 mg TABLET PO PRN (18:39)
[2019-12-18] MEDS ORDERED: Naloxone 0.4 MG/ML INJ IVP PRN (18:39)
[2019-12-18] MEDS ORDERED: Acetaminophen 325 MG TABLET PO PRN (18:39)
[2019-12-18] MEDS ORDERED: MOM Conc 10 ML UD.LIQ PO PRN (18:39)
[2019-12-18] MEDS ORDERED: *HR* OxyCODONE/APAP 5/325 TABLET PO PRN (18:42)
[2019-12-18] MEDS ORDERED: cefTRIAXone 1,000 MG in Water for inj. (sterile) 10 ML IVP SCH (19:00)
[2019-12-18 19:23] LABS: Basophils % 0.6 %; Eosinophils # 0.1 K/mcL (0.0-0.6); Eosinophils % 1.5 %; Hematocrit 40.1 % (35.3-44.9); Hemoglobin 12.3 g/dL (11.5-15.4); Immature Granulocytes % 0.4 % (0-4); Lymphocytes % 19.3 %; Mean Corpuscular HGB Conc 30.7 g/dL (31.6-35.5); Mean Corpuscular Hemoglobin 30.1 pg (28.0-33.3); Mean Corpuscular Volume 98.3 fL (83.0-100.0); Mean Platelet Volume 9.2 fL (9.4-12.4); Monocytes # 0.3 K/mcL (0.0-1.3); Monocytes % 6.3 %; Neutrophils # 3.9 K/mcL (1.6-8.9); Platelet Count 248 K/mcL (140-400); Red Blood Count 4.08 M/mcL (3.82-4.97); Red Cell Distribution Width 14.1 % (11.5-14.5); Segmented Neutrophils % 71.9 %; White Blood Count 5.4 K/mcL (4.3-11.1)
[2019-12-18 19:42] LABS: Alanine Aminotransferase 8 Units/L (7-52); Albumin 4.2 g/dL (3.5-5.7); Albumin/Globulin Ratio 1.4 (1.1-2.2); Alkaline Phosphatase 44 Units/L (34-104); Aspartate Amino Transferase 13 Units/L (13-39); BUN/Creatinine Ratio 25 (6-26); Bilirubin,Total 0.3 mg/dL (0.3-1.0); Blood Urea Nitrogen 26 mg/dL (8-23); Calcium 9.7 mg/dL (8.6-10.3); Carbon Dioxide 31 mEq/L (23-29); Chloride 100 mEq/L (98-107); Globulin 3.1 g/dL (2.4-3.5); Glucose 111 mg/dL (70-105); Osmolality,Calculated 293 (280-300); Potassium 3.9 mEq/L (3.5-5.1); Sodium 139 mEq/L (136-145); Total Protein 7.3 g/dL (6.4-8.9); eGFR For African Americans > 60 (> 60); eGFR For Non-African Americans 50 (> 60)
[2019-12-18] MEDS ORDERED: Melatonin 3 MG TABLET PO ONE (22:53)
[2019-12-19 01:50] LABS: Hematocrit 38.1 % (35.3-44.9); Hemoglobin 11.9 g/dL (11.5-15.4); Mean Corpuscular HGB Conc 31.2 g/dL (31.6-35.5); Mean Corpuscular Hemoglobin 30.2 pg (28.0-33.3); Mean Corpuscular Volume 96.7 fL (83.0-100.0); Mean Platelet Volume 9.6 fL (9.4-12.4); Platelet Count 239 K/mcL (140-400); Red Blood Count 3.94 M/mcL (3.82-4.97)
[2019-12-19] MEDS ORDERED: Levalbuterol Neb 1.25 MG/3 ML ONE (01:51)
[2019-12-19 01:54] LABS: White Blood Count 8.2 K/mcL (4.3-11.1)
[2019-12-19] MEDS: Levalbuterol Neb 1.25 MG/3 ML IH SCH ×2 (01:54→02:06)
[2019-12-19 02:09] LABS: Calcium 9.5 mg/dL (8.6-10.3); Potassium 3.8 mEq/L (3.5-5.1)
[2019-12-19] MEDS ORDERED: Levalbuterol Neb 1.25 MG/3 ML IH PRN (04:00)
[2019-12-19] MEDS ORDERED: *HR* Enoxaparin 30 MG/0.3 ML SYRINGE SQ SCH (06:00)
[2019-12-19] MEDS ORDERED: Ethanol\\Acetic Acid\\Na Ace\\Ben 1,000 ML IRRIG.SOLN IR ONE ×2 (08:12→08:27)
[2019-12-19] MEDS ORDERED: *HR* Succinylcholine 200 MG/10 ML VIAL IVP ONE (08:18)
[2019-12-19] MEDS ORDERED: Ondansetron 4 MG/2 ML VIAL ONE (08:18)
[2019-12-19] MEDS ORDERED: Dexamethasone 4 MG/ML VIAL ONE (08:18)
[2019-12-19] MEDS ORDERED: *HR* Rocuronium Bromide 50 MG/5 ML VIAL ONE (08:18)
[2019-12-19] MEDS ORDERED: Lidocaine -MPF 2% 2 ML VIAL ONE (08:18)
[2019-12-19] MEDS ORDERED: *HR* Propofol 200 MG/20 ML VIAL IVP ONE (08:19)
[2019-12-19] MEDS ORDERED: *HR* FentaNYL (PF) 100 MCG/2 ML VIAL ONE (08:19)
[2019-12-19] MEDS ORDERED: *HR* Labetalol 20 MG/4 ML SYRINGE IVP PRN ×2 (09:03→13:32)
[2019-12-19] MEDS ORDERED: *HR* HYDROmorphone (PF) 1 MG/ML SYRINGE IVP PRN (09:03)
[2019-12-19] MEDS ORDERED: *HR* Promethazine 25 MG/ML VIAL IVP PRN ×2 (09:03→13:32)
[2019-12-19] MEDS ORDERED: *HR* HYDROmorphone 2 MG TABLET PO PRN (09:03)
[2019-12-19] MEDS ORDERED: Famotidine 20 MG/2 ML VIAL IVP ONE ×2 (09:03→13:32)
[2019-12-19] MEDS ORDERED: *HR* OxyCODONE Immed Rel 5 MG TABLET PO PRN (09:03)
[2019-12-19] MEDS ORDERED: Acetaminophen IV 1,000 MG/100 ML INFUS..BTL IVPB ONE (09:03)
[2019-12-19] MEDS ORDERED: *HR* PHENYLEPHRINE 1,000 MCG/10 ML SYRINGE IVP ONE (09:58)
[2019-12-19] MEDS ORDERED: *HR* HYDROMORPHONE 2 MG/ML VIAL ONE (10:31)
[2019-12-19] MEDS ORDERED: *HR* Heparin 5,000 UNIT/ML VIAL ONE (10:38)
[2019-12-19] MEDS ORDERED: Neostigmine Methylsulfate 3 MG/3 ML SYRINGE ONE (11:02)
[2019-12-19 12:13] LABS: Hematocrit 37.2 % (35.3-44.9); Hemoglobin 11.1 g/dL (11.5-15.4)
[2019-12-19] MEDS ORDERED: HYDROcodone BIT/Homatropine 5 MG TABLET PO PRN (13:32)
[2019-12-19] MEDS ORDERED: Ondansetron 4 MG/2 ML VIAL IVP PRN (13:32)
[2019-12-19] MEDS ORDERED: Dextrose Gel 15 GM/37.5 ML TUBE PO PRN ×2 (13:32)
[2019-12-19] MEDS ORDERED: Sennosides 8.6 MG TABLET PO PRN (13:32)
[2019-12-19] MEDS ORDERED: D5% in Water 1,000 ML IVC PRN (13:32)
[2019-12-19] MEDS ORDERED: Naloxone 0.4 MG/ML INJ IVP PRN (13:32)
[2019-12-19] MEDS ORDERED: *HR* Dextrose 50 % in Water (Syg) 50 ML SYRINGE IVP PRN (13:32)
[2019-12-19] MEDS ORDERED: Acetaminophen 325 MG TABLET PO PRN (13:32)
[2019-12-19] MEDS ORDERED: MOM Conc 10 ML UD.LIQ PO PRN ×2 (13:32)
[2019-12-19] MEDS: *HR* OxyCODONE Immed Rel 5 MG TABLET PO PRN ×2 (14:19→20:35)
[2019-12-19] MEDS: Levalbuterol Neb 1.25 MG/3 ML IH PRN ×2 (14:37→15:19)
[2019-12-19] MEDS: Ascorbic Acid 500 MG TABLET PO SCH (17:51)
[2019-12-19] MEDS: cefTRIAXone 1,000 MG in Water for inj. (sterile) 10 ML IVP SCH (18:15)
[2019-12-19 18:38] LABS: Hematocrit 37.3 % (35.3-44.9); Hemoglobin 11.2 g/dL (11.5-15.4)
[2019-12-20] MEDS: *HR* OxyCODONE Immed Rel 5 MG TABLET PO PRN ×2 (00:31→08:50)
[2019-12-20 05:28] LABS: Basophils % 0.4 %; Eosinophils % 0.3 %; Hematocrit 31.5 % (35.3-44.9); Immature Granulocytes % 0.5 % (0-4); Lymphocytes # 0.8 K/mcL (0.6-4.6); Lymphocytes % 8.4 %; Mean Corpuscular HGB Conc 29.8 g/dL (31.6-35.5); Mean Corpuscular Hemoglobin 30.5 pg (28.0-33.3); Mean Corpuscular Volume 102.3 fL (83.0-100.0); Mean Platelet Volume 9.9 fL (9.4-12.4); Monocytes # 0.6 K/mcL (0.0-1.3); Monocytes % 5.8 %; Neutrophils # 8.4 K/mcL (1.6-8.9); Platelet Count 205 K/mcL (140-400); Red Blood Count 3.08 M/mcL (3.82-4.97); Red Cell Distribution Width 14.2 % (11.5-14.5); Segmented Neutrophils % 84.6 %
[2019-12-20 05:29] LABS: Hemoglobin 9.4 g/dL (11.5-15.4)
[2019-12-20 05:45] LABS: Calcium 8.4 mg/dL (8.6-10.3); Potassium 4.4 mEq/L (3.5-5.1)
[2019-12-20] MEDS: Aspirin Enteric Coated 81 MG Tablet PO SCH (08:45)
[2019-12-20] MEDS: Ascorbic Acid 500 MG TABLET PO SCH ×2 (08:50→17:02)
[2019-12-20] MEDS: Multivit/Ca/Min/Fe/FA 1 TAB TABLET PO SCH (08:50)
[2019-12-20] MEDS: Ringers Solution, Lactated 1,000 ML IVC SCH ×2 (09:01→20:45)
[2019-12-20] MEDS ORDERED: Furosemide 40 MG/4 ML VIAL IVP ONE (16:38)
[2019-12-20] MEDS: cefTRIAXone 1,000 MG in Water for inj. (sterile) 10 ML IVP SCH (17:02)
[2019-12-21] MEDS: *HR* OxyCODONE Immed Rel 5 MG TABLET PO PRN ×3 (04:09→17:10)
[2019-12-21 06:52] LABS: Basophils % 0.5 %; Eosinophils # 0.3 K/mcL (0.0-0.6); Hematocrit 29.6 % (35.3-44.9); Hemoglobin 8.9 g/dL (11.5-15.4); Immature Granulocytes % 0.5 % (0-4); Lymphocytes # 0.9 K/mcL (0.6-4.6); Lymphocytes % 10.1 %; Mean Corpuscular HGB Conc 30.1 g/dL (31.6-35.5); Mean Corpuscular Hemoglobin 31.1 pg (28.0-33.3); Mean Corpuscular Volume 103.5 fL (83.0-100.0); Monocytes # 0.4 K/mcL (0.0-1.3); Monocytes % 4.6 %; Neutrophils # 7.2 K/mcL (1.6-8.9); Platelet Count 173 K/mcL (140-400); Red Blood Count 2.86 M/mcL (3.82-4.97); Red Cell Distribution Width 13.8 % (11.5-14.5); Segmented Neutrophils % 81.3 %; White Blood Count 8.9 K/mcL (4.3-11.1)
[2019-12-21 07:08] LABS: Calcium 8.6 mg/dL (8.6-10.3)
[2019-12-21] MEDS: Ascorbic Acid 500 MG TABLET PO SCH ×2 (08:09→17:10)
[2019-12-21] MEDS: Multivit/Ca/Min/Fe/FA 1 TAB TABLET PO SCH (08:10)
[2019-12-21] MEDS: cefTRIAXone 1,000 MG in Water for inj. (sterile) 10 ML IVP SCH (17:11)
[2019-12-21 17:48] LABS: Hematocrit 32.1 % (35.3-44.9); Hemoglobin 9.5 g/dL (11.5-15.4)
[2019-12-22 02:11] LABS: Basophils % 0.5 %; Eosinophils % 2.7 %; Hematocrit 30.5 % (35.3-44.9); Hemoglobin 8.9 g/dL (11.5-15.4); Immature Granulocytes % 0.9 % (0-4); Lymphocytes % 8.6 %; Mean Corpuscular HGB Conc 29.2 g/dL (31.6-35.5); Mean Corpuscular Hemoglobin 30.3 pg (28.0-33.3); Mean Corpuscular Volume 103.7 fL (83.0-100.0); Mean Platelet Volume 10.3 fL (9.4-12.4); Monocytes % 6.7 %; Platelet Count 181 K/mcL (140-400); Red Blood Count 2.94 M/mcL (3.82-4.97); Red Cell Distribution Width 13.8 % (11.5-14.5); Segmented Neutrophils % 80.6 %; White Blood Count 8.6 K/mcL (4.3-11.1)
[2019-12-22 02:12] LABS: Eosinophils # 0.2 K/mcL (0.0-0.6); Lymphocytes # 0.7 K/mcL (0.6-4.6); Monocytes # 0.6 K/mcL (0.0-1.3); Neutrophils # 6.9 K/mcL (1.6-8.9)
[2019-12-22 02:24] LABS: BUN/Creatinine Ratio 30 (6-26); Blood Urea Nitrogen 27 mg/dL (8-23); Calcium 8.6 mg/dL (8.6-10.3); Carbon Dioxide 25 mEq/L (23-29); Chloride 104 mEq/L (98-107); Glucose 97 mg/dL (70-105); Osmolality,Calculated 295 (280-300); Potassium 3.8 mEq/L (3.5-5.1); Sodium 140 mEq/L (136-145); eGFR For African Americans > 60 (> 60); eGFR For Non-African Americans 60 (> 60)
[2019-12-22] MEDS: *HR* OxyCODONE Immed Rel 5 MG TABLET PO PRN ×3 (07:58→19:59)
[2019-12-22] MEDS: Multivit/Ca/Min/Fe/FA 1 TAB TABLET PO SCH (07:59)
[2019-12-22] MEDS: Ascorbic Acid 500 MG TABLET PO SCH ×2 (07:59→16:42)
[2019-12-22] MEDS ORDERED: Aminoglycoside Consult 1 EACH MC ONE (09:28)
[2019-12-22] MEDS: Aspirin Enteric Coated 81 MG Tablet PO SCH (09:45)
[2019-12-22] MEDS: cefTRIAXone 2,000 MG in 0.9 % Sodium Chloride Mini Bag 100 ML IVPB SCH (16:43)
[2019-12-23 04:30] LABS: Basophils # 0.1 K/mcL (0.0-0.2); Basophils % 0.8 %; Eosinophils # 0.2 K/mcL (0.0-0.6); Eosinophils % 2.9 %; Hematocrit 30.2 % (35.3-44.9); Lymphocytes # 0.8 K/mcL (0.6-4.6); Lymphocytes % 9.7 %; Mean Corpuscular HGB Conc 29.8 g/dL (31.6-35.5); Mean Corpuscular Hemoglobin 30.8 pg (28.0-33.3); Mean Corpuscular Volume 103.4 fL (83.0-100.0); Mean Platelet Volume 10.2 fL (9.4-12.4); Monocytes # 0.6 K/mcL (0.0-1.3); Monocytes % 7.4 %; Neutrophils # 6.2 K/mcL (1.6-8.9); Platelet Count 224 K/mcL (140-400); Red Blood Count 2.92 M/mcL (3.82-4.97); Segmented Neutrophils % 78.2 %
[2019-12-23 04:52] LABS: BUN/Creatinine Ratio 32 (6-26); Blood Urea Nitrogen 27 mg/dL (8-23); Carbon Dioxide 29 mEq/L (23-29); Chloride 104 mEq/L (98-107); Glucose 96 mg/dL (70-105); Magnesium 2.1 mg/dL (1.6-2.6); Osmolality,Calculated 297 (280-300); Potassium 3.9 mEq/L (3.5-5.1); Sodium 141 mEq/L (136-145); eGFR For African Americans > 60 (> 60); eGFR For Non-African Americans > 60 (> 60)
[2019-12-23] MEDS: Ascorbic Acid 500 MG TABLET PO SCH ×2 (08:39→16:34)
[2019-12-23] MEDS: Aspirin Enteric Coated 81 MG Tablet PO SCH (08:40)
[2019-12-23] MEDS: Multivit/Ca/Min/Fe/FA 1 TAB TABLET PO SCH (08:40)
[2019-12-23] MEDS: cefTRIAXone 2,000 MG in 0.9 % Sodium Chloride Mini Bag 100 ML IVPB SCH (08:41)
[2019-12-23] MEDS: *HR* OxyCODONE Immed Rel 5 MG TABLET PO PRN (09:00)
[2019-12-23] MEDS ORDERED: Isovue-370 500 ML BOTTLE IVP ONE (11:40)
[2019-12-23 17:32] VITALS: BP 134/78
== END 2019-12-23 18:00 | DRG 467 ==
LOC: 3NENU → SUATTDRO 17:59
PROVIDERS: ADMIT Student in an Organized Health Care Education/Training Program; ATTEND Student in an Organized Health Care Education/Training Program

== ENCOUNTER 2020-04-21 10:03 | Inpatient (IN) ==
[2020-04-21] MEDS ORDERED: Bisacodyl 10 MG RECTAL SUPPOSITORY RC PRN (11:40)
[2020-04-21] MEDS: Ipratropium/Albuterol Neb 3 ML IH SCH ×2 (15:42→21:39)
[2020-04-21] MEDS: *HR* LORazepam Oral Conc 2 MG/ML PO PRN ×2 (15:44→20:13)
[2020-04-21] MEDS: Haloperidol Oral Conc 10 MG/5 ML UDC PO PRN ×2 (15:51→18:43)
[2020-04-22] MEDS: Ipratropium/Albuterol Neb 3 ML IH SCH ×4 (04:19→22:37)
[2020-04-22] MEDS: predniSONE 20 MG TABLET PO SCH (08:14)
[2020-04-22] MEDS: *HR* LORazepam Oral Conc 2 MG/ML PO PRN ×3 (08:14→23:45)
[2020-04-22] MEDS: Furosemide 40 MG TABLET PO SCH (08:14)
[2020-04-22] MEDS: Haloperidol Oral Conc 10 MG/5 ML UDC PO PRN (14:36)
[2020-04-23] MEDS: Haloperidol Oral Conc 10 MG/5 ML UDC PO PRN ×2 (00:15→19:55)
[2020-04-23] MEDS ORDERED: *HR* FentaNYL (PF) 100 MCG/2 ML VIAL IVP PRN (00:55)
[2020-04-23] MEDS: Ipratropium/Albuterol Neb 3 ML IH SCH ×4 (04:02→21:57)
[2020-04-23] MEDS: predniSONE 20 MG TABLET PO SCH (09:24)
[2020-04-23] MEDS: Furosemide 40 MG TABLET PO SCH (09:24)
[2020-04-23 19:14] VITALS: BP 101/62
[2020-04-23] MEDS ORDERED: Atropine Sulfate 1% 40 DROP/2 ML BOTTLE SL PRN (23:26)
[2020-04-24] MEDS: Ipratropium/Albuterol Neb 3 ML IH SCH ×2 (03:44→09:48)
== END 2020-04-24 08:55 | disposition expired | DRG 951 ==
LOC: 2ANU 13:09
PROVIDERS: ADMIT Internal Medicine Hospice and Palliative Medicine; ATTEND Internal Medicine Hospice and Palliative Medicine